=== PATIENT | male | born 1950 | race Caucasian/White ===

== ENCOUNTER → 2017-04-09 | Outpatient (CLI) | payer MEDICARE, OTHER ==
[2017-04-09 14:08] LABS: Blood Urea Nitrogen 13 mg/dL (9-20); Non-African American GFR(MDRD) >60 (>60 ml/min/1.73 sqM)
--- NOTE | 2017-04-09 16:35 | CT ---
EXAMINATION TYPE: CT angio thoracic/abd aorta DATE OF EXAM: 04/09/2017 3:10 PM COMPARISON: NONE HISTORY: thoracic and abdominal aneurysms CT DLP: 895 mGycm Automated exposure control for dose reduction was used. TECHNIQUE: Performed with IV Contrast, patient injected with 100 ml mL of Omnipaque 350. Three-D reconstructed images are reviewed on the computer. FINDINGS: The ascending thoracic aorta at the level the main pulmonary artery is 4.9 cm patent main pulmonary b ifurcation is 2.7 cm. Aortic arch has a normal appearance. The ascending thoracic aorta appears to ta per normally through its visualized course. The abdominal aorta tapers through its visualized course. Vascular calcifications within the aorta an d iliac vessels. The left iliac artery measures 1.2 cm. There is mild prominence proximal common righ t iliac artery 1.9 cm. Internal/external iliac vessels appear normal bilaterally. Emphysematous changes are present lung windows. There is a 4 mm nodule within the superior right uppe r lobe. Series 6 image 18. There is a faint density measuring 0.5 cm in the left upper lobe. Series 6 image 17. Punctate right middle lobe density 0.2 cm in the periphery. Series 6 image 34. These appea r to been present previously. Follow-up chest CT in 6 months is recommended to confirm stability. Diverticular changes are within the sigmoid colon. Lack oral contrast limits evaluation of bowel. Padilla creas is somewhat atrophic. There is a cyst in the superior medial left kidney measuring 3.1 cm. IMPRESSION: ASCENDING THORACIC AORTIC ANEURYSM CURRENTLY MEASURING 4.9 CM. THIS IS SLIGHTLY LARGER THAN THE 4.7 C M ON THE PRIOR EXAM.
== END | disposition home or self-care (01) ==
LOC: RADCTMAIN 13:19
PROVIDERS: ATTEND Family Medicine
DX: I71.2 Thoracic aortic aneurysm, without rupture (principal); I71.4 Abdominal aortic aneurysm, without rupture
CPT/HCPCS: 82565; 84520; 75635; 71275; 36415; Q9967

== ENCOUNTER → 2017-05-21 | Outpatient (CLI) | payer MEDICARE, OTHER ==
[2017-05-21 08:09] LABS: Blood Urea Nitrogen 14 mg/dL (9-20); Non-African American GFR(MDRD) >60 (>60 ml/min/1.73 sqM)
--- NOTE | 2017-05-21 10:29 | CT ---
EXAMINATION TYPE: CT soft tissue neck w con DATE OF EXAM: 05/21/2017 HISTORY: Left submandibular/occipital pain COMPARISON: NONE CT DLP: 1320 mGycm. Automated Exposure Control for Dose Reduction was Utilized. TECHNIQUE: CT scan of the neck is performed with IV Contrast, patient injected with 100 mL of Omnipa que 300, axial images are obtained, coronal and sagittal reformatted images are reviewed. FINDINGS: Airway: Fullness in the nasopharyngeal and oropharyngeal airway are felt to reflect retained secretio ns with some irregular filling of the piriform sinuses present. No obvious mass is identified. There is mild to moderate emphysematous change with moderate apical scarring and subpleural bleb formation most prominent in the visualized right upper lobe. Dependent atelectatic changes are seen in the bila teral upper lobes. Subcentimeter lymph nodes are seen in the anterior superior mediastinum, prevascul ar region, paratracheal region, and AP window. Ascending aortic aneurysm measures up to 4.8 cm in andressa meter stable from recent CT April 09. Parotid/submandibular glands: No gross abnormality seen. Carotid/Vascular Structures: There is fairly moderate mixed plaque at bilateral carotid bulbs slightl y more prominent on the left. No hemodynamically significant stenosis is felt present. Osseous Structures: Exaggerated cervical curvature is seen. There is mild to moderate spurring and di sc space narrowing at C5-C6 and C6-C7 levels. Posterior spur disc complexes effacing anterior thecal sac at these levels. Other: There is mild mucosal thickening involving the bilateral frontal sinuses. There are some scattered subcentimeter lymph nodes in the neck seen bilaterally. No greater than 1 cm neck lymph nodes are clearly identified. Visualized proximal esophagus shows mild wall thickening which is most prominent near origin at level of thyroid gland on axial image 70, but not significantly changed from 2014 CT suggesting benign christine ology. IMPRESSION: No significant abnormality is seen to account for patient's symptoms.
== END | disposition home or self-care (01) ==
LOC: RADCTMAIN 07:39
PROVIDERS: ATTEND Otolaryngology
DX: M54.81 Occipital neuralgia (principal); R59.9 Enlarged lymph nodes, unspecified
CPT/HCPCS: 82565; 84520; 70491; 36415; Q9967

== ENCOUNTER → 2017-06-29 | Outpatient (CLI) | payer MEDICARE, OTHER ==
--- NOTE | 2017-06-29 11:17 | MR ---
EXAMINATION TYPE: MR brain wo/w con DATE OF EXAM: 06/29/2017 COMPARISON: CT brain 03/13/2010 HISTORY: Headaches TECHNIQUE: Multiplanar, multisequence images of the brain and brainstem is performed without and with IV contras t, utilizing 11 mL intravenous Gadavist . FINDINGS: Diffusion weighted images demonstrate no evidence of a recent infarct or other diffusion ab normality. There is no extra-axial fluid collection or significant white matter signal abnormality. Craniocervical junction maintained. Sella turcica has normal appearance. No cerebellopontine angle mass. There are a few scattered areas of abnormal signal the white matter most of remote microvascular isch emia. Changes of chronic sinusitis noted. IMPRESSION: 1. Nonspecific white matter changes correlate for remote microvascular ischemia. Demyelinating proces s not entirely excluded. If symptoms persist consider MRA.
== END | disposition home or self-care (01) ==
LOC: RADMRIMAIN 08:57
PROVIDERS: ATTEND Psychiatry & Neurology Neurology
DX: R90.82 White matter disease, unspecified (principal); R51 Headache
CPT/HCPCS: 70553; A9581

== ENCOUNTER → 2017-07-19 | Outpatient (CLI) | payer MEDICARE, OTHER ==
--- NOTE | 2017-07-19 15:57 | MR ---
EXAMINATION TYPE: MR angio head wo con DATE OF EXAM: 07/19/2017 3:52 PM COMPARISON: NONE HISTORY: Headaches, unusual duration Three-dimensional [id number] intracranial MRA was performed with multiple intensity projection im ages submitted and source data reviewed at the workstation. The vertebrobasilar system as well as intracranial portions of the internal carotid arteries and thei r major tributaries are patent. I do not see evidence for sizable aneurysm or vascular malformation. IMPRESSION: Normal study.
== END | disposition home or self-care (01) ==
LOC: RADMRIMAIN 15:27
PROVIDERS: ATTEND Psychiatry & Neurology Neurology
DX: R51 Headache (principal)
CPT/HCPCS: 70544

== ENCOUNTER → 2018-04-22 | Outpatient (CLI) | payer MEDICARE, OTHER ==
[2018-04-22 10:44] LABS: Blood Urea Nitrogen 12 mg/dL (9-20)
--- NOTE | 2018-04-22 14:21 | CT ---
EXAMINATION TYPE: CT angio chest DATE OF EXAM: 04/22/2018 COMPARISON: 04/09/2017 HISTORY: 67-year-old male Follow up for known ascending aortic aneurysm. TECHNIQUE: Contiguous axial scanning of the chest performed without and with IV Contrast, patient inj ected with 100 mL of Isovue 370. Coronal/sagittal MIP reconstructions performed. 3-D reconstructions generated on a dedicated independent workstation. CT DLP: 1147.3 mGycm Automated exposure control for dose reduction was used. FINDINGS: Heart normal size without pericardial effusion. Coronary vessel calcifications are present and are a marker for coronary artery disease. Aortic root remains ectatic at 3.9 cm. Ascending aorta remains aneurysmal at 4.7 cm. Mild atherosclerotic calcifications with conventional arch vessel branching anatomy. Upper descending thoracic aorta remains mildly aneurysmal at 3.3 cm. Mid descending thoracic aorta borderline aneurysmal at 3.2 cm. Lower descending thoracic aorta is ectatic at 2.9 cm. No dissection or acute intramural hematoma. Mildly enlarged caliber to the main right and left pulmonary arteries at 2.6 and 2.8 cm, respectively , suggesting underlying pulmonary arterial hypertension. Mildly enlarged precarinal lymph node measures 1.1 cm, probably reactive/and postinflammatory and sli ghtly larger from prior. Additional scattered nonenlarged mediastinal lymph nodes are present. [id number] centrilobular and paraseptal emphysema. Strandy dependent atelectasis in the lungs. No consolidation or pleural effusion. Stable 2 mm lateral right midlung pulmonary nodule. Mild diffuse bronchial wall thickening. Stable 4 mm peripheral left midlung pulmonary nodule. Small hiatal hernia. Stable low density 2.5 cm right adrenal nodule compatible with a lipid rich adrenal adenoma. Stable 1 cm low density nodularity left adrenal gland also suggest an adrenal adenoma. 1.7 cm lesion lateral upper pole right kidney slightly larger from 1.3 cm on 04/09/2017 is not clearly seen on the 2014 exam. Complicated cyst or developing solid mass are in the differential. 3.5 cm cys t posterior upper pole left kidney. Bones: Moderate degenerative disc disease throughout the thoracic spine. Situated thoracic kyphosis. IMPRESSION: 1. STABLE ANEURYSMAL ASCENDING AORTA AT 4.7 CM AND UPPER DESCENDING THORACIC AORTA AT 3.3 CM. 2. COPD WITH MILD TO MODERATE EMPHYSEMA AND FINDINGS SUGGESTING UNDERLYING PULMONARY ARTERIAL HYPERTE NSION. 3. SMALL HIATAL HERNIA AND STABLE BILATERAL ADRENAL ADENOMAS MEASURING UP TO 2.5 CM. 4. A 1.7 CM INDETERMINATE LESION LATERAL RIGHT KIDNEY SLIGHTLY LARGER FROM 04/09/2017 WHERE IT MEASURE D 1.3 CM AND NOT WELL SEEN ON THE 2014 EXAM. AN ENLARGING COMPLICATED CYST OR AN INDOLENT SOLID MASS ARE IN THE DIFFERENTIAL. 6 MONTH FOLLOW-UP ABDOMINAL CT RECOMMENDED TO REASSESS.
== END | disposition home or self-care (01) ==
LOC: RADCTMAIN 10:06
PROVIDERS: ATTEND Thoracic Surgery (Cardiothoracic Vascular Surgery)
DX: I71.2 Thoracic aortic aneurysm, without rupture (principal); K44.9 Diaphragmatic hernia without obstruction or gangrene; J43.2 Centrilobular emphysema
CPT/HCPCS: 82565; 84520; 71275; 36415; Q9967

== ENCOUNTER → 2018-07-19 | Outpatient (CLI) | payer MEDICARE, OTHER ==
--- NOTE | 2018-07-19 16:12 | CT ---
EXAMINATION TYPE: CT abdomen wo con DATE OF EXAM: 07/19/2018 HISTORY: Right kidney mass. Abnormal CT. CT DLP: 737 mGycm. Automated Exposure Control for Dose Reduction was Utilized. TECHNIQUE: CT scan of the abdomen and pelvis is performed without oral or IV contrast. COMPARISON: CT aorta April 09, 2017 and older CTs. CTA chest April 22, 2018 FINDINGS: Within the limitations of a non-contrast study, the following observations are made. LUNG BASES: Coronary artery calcification is redemonstrated. LIVER/GB: Cholecystectomy clips are redemonstrated. PANCREAS: No significant abnormality is seen. SPLEEN: No significant abnormality is seen. ADRENALS: Stable 2.1 cm low dense right adrenal mass felt to reflect benign lipid rich adenoma as the Hounsfield units are less than 10. KIDNEYS: Stable 2.7 cm partially exophytic simple cyst posteriorly upper pole level left kidney axial image 12. There are 2 calculi measuring 1 to 2 mm in size centrally left kidney coronal image 83. Th ere is third 1 to 2 mm calculus lower pole level coronal image 74. There are 2-3 small calculi measur ing 1 to 2 mm in size scattered throughout the right kidney. There is 1.3 cm partially exophytic hype rdense lesion upper pole level right kidney axial image 18 favoring proteinaceous cyst not significan tly changed in size from most recent CT. I would advise CT or MRI renal protocol contrast-enhanced fo llow-up in 6-12 months time to reassess due to its increasing size, hyperdense appearance on noncontr ast CT would favor benign lesion. BOWEL: Debris filled stomach is present. No suspicious small or large bowel dilatation is seen LYMPH NODES: No greater than 1cm abdominal lymph nodes nodes are appreciated. OSSEOUS STRUCTURES: Moderate to advanced disc space narrowing with vacuum disc phenomenon at L5-S1 le ann is present. OTHER: There is mild to moderate calcified plaque of aorta extending into branch vessels. IMPRESSION: Stable size of upper pole right renal lesion from recent CTA chest study. Hyperdense appe arance on noncontrast CT favors proteinaceous cyst. Suboptimal evaluation without dedicated renal pro tocol study. Advise short-term renal protocol CT or MRI in 6-12 months time to reassess this lesion.
== END ==
LOC: RADCTMAIN 15:34
PROVIDERS: ATTEND Family Medicine
DX: N28.9 Disorder of kidney and ureter, unspecified (principal)
CPT/HCPCS: 74150

== ENCOUNTER → 2019-01-17 | Outpatient (CLI) | payer MEDICARE, OTHER ==
[2019-01-17 12:15] LABS: Blood Urea Nitrogen 13 mg/dL (9-20)
--- NOTE | 2019-01-17 13:28 | CT ---
EXAMINATION TYPE: CT abdomen wo/w con DATE OF EXAM: 01/17/2019 COMPARISON: 07/19/2015 HISTORY: Right kidney mass. CT DLP: 2109.5 mGycm CONTRAST: CT scan of the abdomen is performed with Oral Contrast and without and with IV Contrast, patient inj ected with 100 mL of Isovue M300. FINDINGS: LUNG BASES-: No visible nodule. No infiltrate. LIVER/GB: Cholecystectomy clips are noted to be placed. No space occupying hepatic lesion. Biliary tree is of normal caliber. PANCREAS: No inflammation. No distinct mass. SPLEEN: No splenic enlargement. No lesion seen. ADRENALS: No nodule. No thickening. KIDNEYS/BLADDER: 1.6 cm exophytic lesion upper pole right kidney at its lateral cortex with Hounsfiel d units following contrast and access of 70. Free contrast Hounsfield unit measurement of approximate ly 40. Small neoplasm is not excluded. Simple cyst upper pole left kidney is stable and measures 3 cm . Bilateral nephrolithiasis noted. There is mild fullness of the left renal collecting system of unce rtain etiology. BOWEL: Normal appendix. Normal bowel caliber. No inflammation. LYMPH NODES: No greater than 1cm abdominal or pelvic lymph nodes are appreciated. AORTA: Atheromatous and ectatic change of the abdominal aorta and iliac vessels. OSSEOUS STRUCTURES: No significant abnormality is seen. OTHER: No significant additional abnormality is seen. IMPRESSION: 1. Complex lesion upper pole right kidney. Small neoplasm is not excluded. Correlate clinically.
== END ==
LOC: RADCTMAIN 11:41
PROVIDERS: ATTEND Family Medicine
DX: N28.89 Other specified disorders of kidney and ureter (principal)
CPT/HCPCS: 82565; 84520; 74170; 36415; Q9967

== ENCOUNTER → 2019-02-19 | Outpatient (CLI) | payer MEDICARE, OTHER ==
[2019-02-19 14:13] LABS: Basophils # (A) 0.1 k/uL (0-0.2); Basophils % (A) 1 %; Eosinophils # (A) 0.3 k/uL (0-0.7); Eosinophils % (A) 3 %; HCT 46.3 % (39.0-53.0); HGB 15.1 gm/dL (13.0-17.5); Lymphocytes # (A) 1.7 k/uL (1.0-4.8); Lymphocytes % (A) 20 %; MCH 30.1 pg (25.0-35.0); MCHC 32.7 g/dL (31.0-37.0); MCV 92.1 fL (80.0-100.0); Mean Platelet Volume 7.6; Monocytes # (A) 0.5 k/uL (0-1.0); Monocytes % (A) 6 %; Neutrophils # (A) 5.6 k/uL (1.3-7.7); Neutrophils % (A) 68 %; Platelet Count 307 k/uL (150-450); RBC 5.03 m/uL (4.30-5.90); RDW 15.2 % (11.5-15.5); WBC 8.3 k/uL (3.8-10.6)
[2019-02-19 14:16] LABS: ALT 34 U/L (21-72); AST 25 U/L (17-59); Albumin 4.3 g/dL (3.5-5.0); Alkaline Phosphatase 94 U/L (38-126); Anion Gap 9 mmol/L; Blood Urea Nitrogen 17 mg/dL (9-20); Calcium 9.6 mg/dL (8.4-10.2); Carbon Dioxide 23 mmol/L (22-30); Chloride 108 mmol/L (98-107); Glucose 94 mg/dL (74-99); Potassium 4.5 mmol/L (3.5-5.1); Sodium 140 mmol/L (137-145); Total Bilirubin 0.6 mg/dL (0.2-1.3); Total Protein 7.3 g/dL (6.3-8.2)
== END | disposition home or self-care (01) ==
LOC: LABPAT 13:25
PROVIDERS: ATTEND Urology
DX: Z01.812 Encounter for preprocedural laboratory examination (principal); D41.01 Neoplasm of uncertain behavior of right kidney
CPT/HCPCS: 36415; 80053; 85025

== ENCOUNTER → 2019-02-20 | Outpatient (CLI) | payer MEDICARE, OTHER | END | disposition home or self-care (01) | LOC: LABWHC1 13:30 | PROVIDERS: ATTEND Urology | DX: Z01.812 Encounter for preprocedural laboratory examination (principal); D41.01 Neoplasm of uncertain behavior of right kidney | CPT/HCPCS: 86850; 86860; 86870; 86880; 86885; 86900; 86901; 86970; 86978 ==

== ENCOUNTER → 2019-02-24 | Outpatient (CLI) | payer MEDICARE, OTHER | END | disposition home or self-care (01) | LOC: LABPAT 09:46 | PROVIDERS: ATTEND Urology | DX: Z01.818 Encounter for other preprocedural examination (principal) | CPT/HCPCS: 93005 ==

== ENCOUNTER 2019-02-26 10:33 | Inpatient (IN) | payer MEDICARE, OTHER ==
--- NOTE | 2019-02-25 20:06 | P.GSHP ---
History of Present Illness H&P Date: 02/25/19 68 yo male with an ascending aortic aneurysm that is being observed that. During the observation a ct scan identified a 1.6cm upper right lateral mass of 30-40 hounsfield units in t he right kidney He was snet to Dr Lane Campbell for further evaluation and treatment He comes for a right robotic partial nephrectomy. the risks complications and alternatives have been discussed. - Constitutional Constitutional: Denies chills, Denies fever - EENT Eyes: denies blurred vision, denies pain Ears, nose, mouth and throat: Denies headache, Denies sore throat - Cardiovascular Cardiovascular: Denies chest pain, Denies shortness of breath - Respiratory Respiratory: Denies cough, Denies 7 - Gastrointestinal Gastrointestinal: Denies abdominal pain, Denies diarrhea, Denies nausea, Denies vomiting - Genitourinary (Female) Genitourinary: Denies dysuria, Denies hematuria - Genitourinary (Male) Genitourinary: Denies dysuria, Denies hematuria - Musculoskeletal Musculoskeletal: Denies myalgias - Integumentary Integumentary: Denies pruritus, Denies rash - Neurological Neurological: Denies numbness, Denies weakness - Psychiatric Psychiatric: Denies anxiety, Denies depression - Endocrine Endocrine: Denies fatigue, Denies weight change Past Medical History Past Medical History: No Reported History, Vascular Disorder Additional Past Medical History / Comment(s): MASS RIGHT KIDNEY. AORTIC ANEURYSM. History of Any Multi-Drug Resistant Organisms: None Reported Past Surgical History: Cholecystectomy, Hernia Repair Additional Past Surgical History / Comment(s): LEFT KIDNEY SURGERY A CHILD (PATIENT STATES HE HAD A TUMOR ON URETER). Past Anesthesia/Blood Transfusion Reactions: No Reported Reaction Past Psychological History: No Psychological Hx Reported Smoking Status: Current every day smoker Past Alcohol Use History: None Reported Additional Past Alcohol Use History / Comment(s): 1PDD FOR ABOUT 56 YR. Past Drug Use History: None Reported - Past Family History Mother Family Medical History: No Reported History Medications and Allergies Home Medications Medication Instructions Recorded Confirmed Type [id number] 1 tab PO Q6H PRN 02/21/19 02/21/19 History [Excedrin] Allergies Allergy/AdvReac Type Severity Reaction Status Date / Time No Known Allergies Allergy Verified 02/21/19 14:18 Surgical - Exam - General well developed, well nourished, no distress - Eyes PERRL - ENT no hearing loss - Neck no masses - Respiratory normal expansion, normal respiratory effort - Abdomen Abdomen: soft, non tender - Genitourinary normal penis with no external lesions, testicles present - Integumentary no rash, no growths - Neurologic normal coordination, normal sensation - Musculoskeletal normal gait, normal posture - Psychiatric oriented to time, oriented to person, oriented to place, speech is normal, memory intact Results - Imaging CT scan - abdomen: report reviewed, image reviewed CT scan - pelvis: report reviewed, image reviewed Assessment and Plan Assessment: Impression: Right renal mass , 1.6 cm upper lateral cortical kidney Plan: Robotic assisted laparoscopic partial nephrectomy by Dr Lane Campbell
[~2019-02-26 10:33] MED LIST: DEXAMETHASONE SOD PHOSPHATE 10 MG/ML 1 ML VIAL IV ONE; LIDOCAINE 1% 20 ML VIAL (10MG/ML) FOR IV START INTRADERMA PRN; MIDAZOLAM 2 MG/2 ML VIAL IV PRN; ONDANSETRON 4 MG/2 ML VIAL IVP ONE; Pre Op ABX Message 1 EACH MISC MISCELLANE ONE; SCOPOLAMINE 1.5MG/72HR PATCH TRANSDERM ONE
[2019-02-26] MEDS: LACTATED RINGERS 1,000 ML IV SCH (11:17)
[2019-02-26] MEDS ORDERED: HEPARIN SODIUM,PORCINE 5,000 UNIT/ML 1 ML VIAL SQ ONE (12:33)
[2019-02-26] MEDS ORDERED: hydrALAZINE HCL 20 MG/ML 1 ML VIAL ONE (13:00)
[2019-02-26] MEDS ORDERED: SUCCINYLCHOLINE CHLORIDE 100 MG/5 ML SYR IV ONE (13:00)
[2019-02-26] MEDS ORDERED: PROPOFOL 10 MG/ML 20 ML VIAL IV ONE (13:00)
[2019-02-26] MEDS ORDERED: fentaNYL (PF) 50 MCG/ML 2 ML AMP ONE (13:00)
[2019-02-26] MEDS ORDERED: LABETALOL 5 MG/ML VIAL MDV ONE (13:00)
[2019-02-26] MEDS ORDERED: ROCURONIUM BROMIDE 10 MG/ML 10 ML VIAL IV ONE (13:00)
[2019-02-26] MEDS ORDERED: HYDROmorphone (PF) 1 MG/ML ONE (13:00)
[2019-02-26] MEDS ORDERED: NEOSTIGMINE 1 MG/ML 10 ML VIAL ONE (13:00)
[2019-02-26] MEDS ORDERED: MIDAZOLAM 2 MG/2 ML VIAL ONE (13:00)
[2019-02-26] MEDS ORDERED: MANNITOL 25% 12.5 GM/50 ML VIAL ONE (13:00)
[2019-02-26] MEDS ORDERED: GLYCOPYRROLATE 0.2 MG/ML 2 ML VIAL ONE (13:00)
[2019-02-26] MEDS ORDERED: ONDANSETRON 4 MG/2 ML VIAL IVP PRN (13:02)
[2019-02-26] MEDS: ceFAZolin IN SWFI 2 GM/20 ML SYRINGE IVP STA ×3 (13:20→13:34)
[2019-02-26] MEDS ORDERED: BUPIVACAINE (PF) 0.5% 30 ML VIAL SQ ONE ×2 (13:42)
--- NOTE | 2019-02-26 14:33 | P.OP ---
Date of Procedure: 02/26/19 Preoperative Diagnosis: right renal mass Postoperative Diagnosis: right renal mass Procedure(s) Performed: robotic right partial nephrectomy Anesthesia: LETICIA Surgeon: Gonzalo Campbell Estimated Blood Loss (ml): 100 IV fluids (ml): 1,100 Urine output (ml): 200 Pathology: other (right renal mass) Condition: stable Disposition: PACU Indications for Procedure: right renal mass enhancing suspicious for malignancy Operative Findings: right enhancing renal mass. single artery and vein. Description of Procedure: the patient was taken to the OR, administered GA and placed in right lateral position. He was secured to the table with tape and all pressure points were padded.The parts were prepared and draped. A verress needle was used to access the peritoneum and pneumoperitoneum was achieved to 20 mm hg. A 8 mm robotic port was placed and the 0 degree camera was used to vislualize the peritoneum. three additional 8 mm ports were placed for the robotic arms and a 12 mm assi stant and 5 mm liver retractor port was also placed. The robotic was docked. Using the monopolar scissors and fenestrated bipolar, the colon was mobilized and reflected off the gerotas and the duodenum was also reflected off the gerota and IVC. The liver was retracted superiorly with a 5 mm grasper. The ureter was identified and retracted superiorly with the prograsp. The gonadal vein was left medially. The psoas muscle was identified and the kideny was reflectd off the Gerotas fascia till the hium was identified. The hilum was then dissected taking care to isolate the single renal artery and renal vein. At this point, the Gerotas was reflected off the anterior wall of the kidney and the renal mass was identified at the superior pole of right kidney. Ultrasound was used to judith the margins of the tumor on the surface of the kidney. 12.5 gm of mannitol were given iv and Bulldog clamps were used to occlude the renal artery and vein. using scissors and bipolar, the renal mass was excised using cold cutting. Care was taken to ensure margins were negative and any bleeding points were coagulated with bipolar forceps. Once the tumor was completely excised, it was placed in a 10 mm endocatch bag. Using a large needle transit mixer driver and bipolar, the renorrhaphy was commenced by starting the the deep layer using a 3-0 V loc on SH-1 needle. The deep layer was closed and needle brought out through the renal capsule and held in place with a weck clip. The outer renorrhaphy was then completed using four 2-0v loc sutures on a CT-1 needle. Individual sutures were placed through the capsule on both sides of the defect and held in place with a weck clip (sliding renorrhaphy technique) The bull dog clamps were then removed off the artery and vein and the defect was observed for bleeding for 10 minutes with pneumo at 10mm hg. After confirming that there was no bleeding, the defect was covered with evicel and surgicel and a drain was placed through the right lower 8 mm port. The endocatch bag was removed and renal mass sent for pathology. The fascia was closed with 0 vicryl figure of 8 suture and skin was closed with 3-0 monocryl. The drain was secured with 3-0 ethilon patient was reversed and taken to PACU in stable condition
[2019-02-26] MEDS: HYDROmorphone 0.5 MG/0.5 ML SYRINGE IVP PRN ×2 (16:43→16:49)
[2019-02-26] MEDS: DEXTROSE 5%-0.45% NACL 1,000 ML IV SCH ×2 (17:37→23:49)
[2019-02-26] MEDS: HEPARIN SODIUM,PORCINE 5,000 UNIT/ML 1 ML VIAL SQ SCH ×2 (17:41→23:49)
[2019-02-26 17:55] VITALS: BMI 34.7
[2019-02-26] MEDS: ceFAZolin IN SWFI 2 GM/20 ML SYRINGE IVP SCH (21:26)
[2019-02-26] MEDS: KETOROLAC 30 MG/ML 1 ML VIAL IVP PRN (21:26)
[2019-02-26] MEDS: HYDROmorphone 1 MG/ML 1 ML SYRINGE IVP PRN (23:48)
[2019-02-27] MEDS: HYDROmorphone 1 MG/ML 1 ML SYRINGE IVP PRN ×3 (03:55→20:10)
[2019-02-27] MEDS: ceFAZolin IN SWFI 2 GM/20 ML SYRINGE IVP SCH ×2 (06:07→12:33)
[2019-02-27] MEDS ORDERED: ASPIRIN-ACET-CAFF 250-250-65MG 1 EACH TAB PO PRN (06:36)
--- NOTE | 2019-02-27 06:36 | P.PN ---
Subjective Progress Note Date: 02/27/19 The patient underwent a robotic-assisted laparoscopic partial nephrectomy yesterday by he did well overnight. His only problem is that of a migraine. His abdomen is soft. The voided urine is clear. His drain has some pinkish urine. I will discontinue his Scott. Given medicine for his migraine ambulate and give him a regular diet. We will observe him another 24 hours to make sure there is no bleeding from the partial nephrectomy. Anticipate discharge home tomorrow. Objective - Vital Signs Vital signs: Vital Signs Temp 97.8 F 02/27/19 01:11 Pulse 75 02/27/19 01:11 Resp 16 02/27/19 01:11 BP 110/66 02/27/19 01:11 Pulse Ox 92 L 02/27/19 01:11 Intake & Output 02/26/19 02/26/19 02/27/19 06:59 18:59 06:59 Intake Total 1675 Output Total 720 1350 Balance 955 -1350 Intake: IV 1675 Output: Drainage 200 Right Lower Abdomen 200 Urine 700 1150 Estimated Blood Loss 20 Other: Voiding Method Indwelling Catheter Indwelling Catheter
[2019-02-27] MEDS: HEPARIN SODIUM,PORCINE 5,000 UNIT/ML 1 ML VIAL SQ SCH ×3 (07:47→23:46)
[2019-02-27] MEDS: DEXTROSE 5%-0.45% NACL 1,000 ML IV SCH ×3 (07:50→22:23)
--- NOTE | 2019-02-27 09:10 | XR ---
EXAMINATION TYPE: XR chest 2V DATE OF EXAM: 02/27/2019 COMPARISON: 03/13/2010 INDICATION: Hypoxia TECHNIQUE: Frontal and lateral views of the chest are obtained. FINDINGS: The heart size is normal. The pulmonary vasculature is somewhat prominent. There is some nonspecific linear opacity within the left mid and upper lung field. Scarring should be considered.. There may be some mild infiltrate in the left lower lobe. There is blunting of the cos tophrenic angle. Correlate for atelectasis or infiltrate. IMPRESSION: 1. Nonspecific lung markings greater at the left lung base and costophrenic angle. Correlate for atel ectasis. Consider pneumonia and scarring.
[2019-02-27 10:02] LABS: ALT 40 U/L (21-72); AST 33 U/L (17-59); Albumin 4.1 g/dL (3.5-5.0); Alkaline Phosphatase 90 U/L (38-126); Anion Gap 10 mmol/L; Blood Urea Nitrogen 18 mg/dL (9-20); Calcium 9.3 mg/dL (8.4-10.2); Carbon Dioxide 26 mmol/L (22-30); Chloride 103 mmol/L (98-107); Glucose 109 mg/dL (74-99); Potassium 4.4 mmol/L (3.5-5.1); Sodium 139 mmol/L (137-145); Total Bilirubin 0.7 mg/dL (0.2-1.3)
[2019-02-27 10:03] LABS: Basophils % (A) 0 %; Eosinophils % (A) 0 %; HCT 46.1 % (39.0-53.0); HGB 14.6 gm/dL (13.0-17.5); Lymphocytes # (A) 1.1 k/uL (1.0-4.8); Lymphocytes % (A) 5 %; MCH 29.1 pg (25.0-35.0); MCHC 31.7 g/dL (31.0-37.0); MCV 91.9 fL (80.0-100.0); Mean Platelet Volume 8.1; Monocytes # (A) 0.8 k/uL (0-1.0); Monocytes % (A) 4 %; Neutrophils % (A) 90 %; Platelet Count 325 k/uL (150-450); RBC 5.02 m/uL (4.30-5.90); RDW 14.7 % (11.5-15.5)
[2019-02-27] MEDS: KETOROLAC 30 MG/ML 1 ML VIAL IVP PRN ×2 (12:32→21:37)
[2019-02-27] MEDS ORDERED: SODIUM CHLORIDE 0.65% NASAL SPRAY 44 ML BTL NASAL PRN (20:35)
[2019-02-27] MEDS: MONTELUKAST 10 MG TAB PO SCH (21:34)
[2019-02-28] MEDS: LACTATED RINGERS 1,000 ML IV SCH (04:59)
[2019-02-28] MEDS: HYDROmorphone 1 MG/ML 1 ML SYRINGE IVP PRN ×2 (06:13→12:11)
[2019-02-28] MEDS: DEXTROSE 5%-0.45% NACL 1,000 ML IV SCH ×3 (06:16→21:30)
[2019-02-28] MEDS: HEPARIN SODIUM,PORCINE 5,000 UNIT/ML 1 ML VIAL SQ SCH ×3 (07:47→23:54)
--- NOTE | 2019-02-28 08:29 | P.CONS ---
History of Present Illness - Reason for Consult Consult date: 02/27/19 Medical management - History of Present Illness This is 68-year-old gentleman admitted with upper right lateral renal mass, history of ascending aortic aneurysm, ongoing nicotine abuse and multiple other medical issues. Patient is postop day #1 for right robotic partial nephrectomy. Tolerated procedure well. Complains of discomfort at surgical sites. Ambulating in room. Nauseated this morning, minimal diet intake. Complains of headache.Requiring 4 L nasal cannula O2 to maintain O2 sats of 92-94% and a patient who does not wear oxygen at home. Incentive spirometer up to 1000. Labs and chest x-ray ordered and pending. Denies chest pain, palpitations. Denies cough. Denies lightheadedness dizziness or focal deficits. Afebrile. Review of Systems Review of systems: CONSTITUTIONAL: No fever, no malaise, no fatigue. HEENT: No recent visual problems or hearing problems. Denied any sore throat. CARDIOVASCULAR: No chest pain, orthopnea, PND, no palpitations, no syncope. PULMONARY: Denies shortness of breath, no cough, no hemoptysis. GASTROINTESTINAL: No diarrhea, positive nausea, no vomiting, status post surgery -abdominal /right flank pain. Normoactive bowel sounds. NEUROLOGICAL: Mild posterior headache, no weakness, no numbness. HEMATOLOGICAL: Denies any bleeding or petechiae. GENITOURINARY: Denies any burning micturition, frequency, or urgency. MUSCULOSKELETAL/RHEUMATOLOGICAL: Denies any joint pain, swelling, or any muscle pain. ENDOCRINE: Denies any polyuria or polydipsia. PSYCHIATRIC: No anxiety, no depression The rest of the 14 point review of systems is negative Past Medical History Past Medical History: No Reported History, Vascular Disorder Additional Past Medical History / Comment(s): MASS RIGHT KIDNEY. AORTIC ANEURYSM. History of Any Multi-Drug Resistant Organisms: None Reported Past Surgical History: Cholecystectomy, Hernia Repair Additional Past Surgical History / Comment(s): LEFT KIDNEY SURGERY A CHILD (PATIENT STATES HE HAD A TUMOR ON URETER). Right partial nephrectomy. Past Anesthesia/Blood Transfusion Reactions: No Reported Reaction Past Psychological History: No Psychological Hx Reported Smoking Status: Current every day smoker Past Alcohol Use History: None Reported Additional Past Alcohol Use History / Comment(s): 1 1/2 PPD FOR ABOUT 56 YR. Past Drug Use History: None Reported - Past Family History Mother Family Medical History: No Reported History Medications and Allergies Home Medications Medication Instructions Recorded Confirmed Type [id number]-[id number] 1 tab PO Q6H PRN 02/21/19 02/27/19 History [Excedrin] Allergies Allergy/AdvReac Type Severity Reaction Status Date / Time No Known Allergies Allergy Verified 02/27/19 18:59 Physical Exam Vitals: Vital Signs Temp Pulse Resp BP Pulse Ox 02/27/19 01:11 97.8 F 75 16 110/66 92 L 02/26/19 20:09 98.8 F 57 L 18 114/72 94 L 02/26/19 19:30 52 L 122/75 94 L 02/26/19 19:15 63 114/72 94 L 02/26/19 19:00 61 110/72 94 L 02/26/19 18:45 65 111/69 94 L 02/26/19 18:38 72 114/72 02/26/19 18:15 69 114/72 02/26/19 18:00 67 117/71 92 L 02/26/19 17:45 68 111/72 92 L 02/26/19 17:30 98 F 83 14 138/80 91 L 02/26/19 16:45 73 16 127/67 99 02/26/19 16:15 65 16 128/63 97 02/26/19 16:00 68 16 124/77 96 02/26/19 15:45 69 16 122/70 95 02/26/19 15:30 68 16 127/60 94 L 02/26/19 15:15 78 16 132/60 92 L 02/26/19 15:00 97.5 F L 74 18 132/62 92 L 02/26/19 11:09 97.9 F 69 16 123/81 94 L Intake and Output 02/26/19 02/27/19 02/27/19 22:59 06:59 14:59 Intake Total 375 Output Total 1085 615 Balance -710 615 Intake: IV 375 Output: Drainage 60 140 Right Lower Abdomen 60 140 Urine 1025 475 Other: Voiding Method Indwelling Catheter PHYSICAL EXAM: VITAL SIGNS: As above GENERAL: Sitting up in bed, no acute distress HEENT: Conjunctivae normal. eyes normal. NECK: No JVD. No thyroid enlargement. No LNs CARDIOVASCULAR: S1, S2 regular. No murmur RESPIRATION: Breath sounds diminished in the bases. No rhonchi or crackles. No bronchial breathing. ABDOMEN: Soft, status post surgery. Surgical sites clean dry and intact, ROXANA present with sanguinous drainage. No guarding. Bowel sounds heard. LEGS: No edema. no swelling PSYCHIATRY: Alert and oriented -3, mood and affect normal. NERVOUS SYSTEM: Cranial N 2-12 grossly normal. Moves all 4 limbs. Diffuse weakness No focal deficits. Strength and sensation grossly intact. Skin: no ulcer ,no rashes Joints: No active swelling. No inflammation. Lymphatic system. No LN neck axilla or groin. Results CBC & Chem 7: 02/27/19 08:54 02/27/19 08:54 Assessment and Plan Assessment: -Right Renal mass, status post right partial nephrectomy -Acute hypoxic respiratory failure, possibly atelectasis, rule out infiltrate -Ongoing nicotine abuse Plan: Continue on current medication regime ,monitoring and symptomatic treatment. Aggressive pulmonary toileting with incentive spirometer reinforced. Smoking cessation readdressed. zofran for nausea. Scott to be discontinued as per urology. Increase ambulation as tolerated . Excedrin Migraine ordered for headache .Chest x-ray pending. Thank you Dr. Campbell for allowing us to participate in the care at this [facility]. The impression and plan of care has been dictated as directed. : I performed a history and examination of this patient, discussed the same with the dictator. I agree with the dictator's note ,documented as a scribe. Any additional findings or plans will be noted. Time taken: 35 minutes
--- NOTE | 2019-02-28 09:00 | P.PN ---
Subjective Progress Note Date: 02/28/19 This is 68-year-old gentleman admitted with upper right lateral renal mass, history of ascending aortic aneurysm, ongoing nicotine abuse and multiple other medical issues. Patient is postop day #1 for right robotic partial nephrectomy. Tolerated procedure well. Complains of discomfort at surgical sites. Ambulating in room. Nauseated this morning, minimal diet intake. Complains of headache.Requiring 4 L nasal cannula O2 to maintain O2 sats of 92-94% and a patient who does not wear oxygen at home. Incentive spirometer up to 1000. Labs and chest x-ray ordered and pending. Denies chest pain, palpitations. Denies cough. Denies lightheadedness dizziness or focal deficits. Afebrile. 02/28/2019 Developed fever during the night, T-max 100.3. Nonproductive cough. Incentive spirometer up to 2500. Oxygen requirements has decreased, down to 3 L, maintaining O2 sats of 93%. Chest x-ray reported nonspecific lung markings, atelectasis persists infiltrate greater in the left lower lobe and co stophrenic angle. Patient received a total of 1100 mL fluid during the procedure. Complains of pain at surgical sites this morning. Leaking serosanguineous drainage around ROXANA. Received Excedrin Migraine yesterday, headache subsided. Objective - Vital Signs Vital signs: Vital Signs Temp 98.1 F 02/27/19 23:47 Pulse 75 02/27/19 23:47 Resp 20 02/28/19 03:10 BP 145/67 02/27/19 23:47 Pulse Ox 93 L 02/27/19 23:47 Intake & Output 02/27/19 02/28/19 02/28/19 18:59 06:59 18:59 Intake Total 1180 1000 Output Total 1345 280 Balance -165 720 Intake: Intake, IV Titration 1000 Amount Dextrose 5%-0.45% NaCl 1, 1000 000 ml @ 125 mls/hr IV . Q8H [facility] Rx#:[id number] Oral 180 Other 1000 Output: Drainage 35 70 Right Lower Abdomen 35 70 Urine 1310 210 Uretheral (Scott) 60 Other: Voiding Method Toilet Urinal Urinal # Voids 1 - Exam VITAL SIGNS: As above GENERAL: Sitting up in bed, no acute distress HEENT: Conjunctivae normal. eyes normal. Oral mucosa moist NECK: No JVD. No thyroid enlargement. No LNs CARDIOVASCULAR: S1, S2 regular. No murmur RESPIRATION: Breath sounds coarse, diminished in the bases. No rhonchi or crackles. ABDOMEN: Soft, status post surgery. Surgical sites clean dry and intact, leaking serosanguineous drainage around ROXANA, No guarding. Bowel sounds heard. LEGS: No edema. no swelling PSYCHIATRY: Alert and oriented -3, mood and affect normal. NERVOUS SYSTEM: Cranial N 2-12 grossly normal. Moves all 4 limbs. Diffuse weakness No focal deficits. Strength and sensation grossly intact. Skin: no ulcer ,no rashes - Labs CBC & Chem 7: 02/27/19 08:54 02/27/19 08:54 Labs: Abnormal Lab Results - Last 24 Hours (Table) 02/27/19 02/27/19 Range/Units 08:54 08:54 WBC 20.0 H (3.8-10.6) k/uL Neutrophils # 18.0 H (1.3-7.7) k/uL Glucose 109 H (74-99) mg/dL Assessment and Plan Assessment: -Right Renal mass, status post right partial nephrectomy, pathology pending -Acute hypoxic respiratory failure, suspect atelectasis, possible infiltrate -Isolated fever, most likely related to atelectasis, urine culture ordered -Ongoing nicotine abuse Plan: Continue on current medication regime ,monitoring and symptomatic treatment. Increase ambulation as tolerated, continue with aggressive pulmonary toileting - incentive spirometer reinforced. Urine culture ordered. Empiric antibiotics of Rocephin added to med regime .Pain management as per surgery. Smoking cessation readdressed. Further recommendations to follow. Thank you Dr. Soto for allowing us to participate in the care at this [facility]. The impression and plan of care has been dictated as directed. Dr.: I performed a history and examination of this patient, discussed the same with the dictator. I agree with the dictator's note ,documented as a scribe. Any additional findings or plans will be noted. Time taken: 35 minutes
[2019-02-28 10:49] LABS: Appearance,Urine Clear (Clear); Bacteria,Urine Rare /hpf; Bilirubin,Urine Negative (Negative); Blood,Urine Small (Negative); Color,Urine Light Yellow; Glucose,Urine (UA) Negative (Negative); Ketones,Urine Negative (Negative); Leukocyte Esterase,Urine Negative (Negative); Mucus,Urine Rare /hpf; Nitrite,Urine Negative (Negative); Protein,Urine Trace (Negative); RBC,Urine 15 /hpf (0-5); Specific Gravity,Urine 1.011 (1.001-1.035); Urobilinogen,Urine <2.0 mg/dL (<2.0)
[2019-02-28 12:19] LABS: Basophils % (A) 0 %; Eosinophils # (A) 0.1 k/uL (0-0.7); Eosinophils % (A) 1 %; HCT 41.6 % (39.0-53.0); HGB 13.6 gm/dL (13.0-17.5); Lymphocytes % (A) 9 %; MCH 30.6 pg (25.0-35.0); MCHC 32.5 g/dL (31.0-37.0); MCV 94.1 fL (80.0-100.0); Mean Platelet Volume 7.5; Monocytes # (A) 0.8 k/uL (0-1.0); Monocytes % (A) 7 %; Neutrophils # (A) 9.7 k/uL (1.3-7.7); Neutrophils % (A) 83 %; Platelet Count 210 k/uL (150-450); RBC 4.43 m/uL (4.30-5.90); RDW 14.1 % (11.5-15.5); WBC 11.7 k/uL (3.8-10.6)
--- NOTE | 2019-02-28 15:10 | P.PN ---
Subjective Progress Note Date: 02/28/19 The patient is in his second postoperative day from a right partial nephrectomy done robotically by . He had a low-grade temperature last night consistent with atelectasis. A chest x-ray ordered by medicine showed atelectasis. He is using his incentive spirometry today with a much better volumes. He feels good. His drain is been removed. He is voiding without his catheter. We'll make sure he does well overnight and if so he can be discharged home in the morning. He'll follow-up in our office next week. Postoperative instructions been given. Objective - Vital Signs Vital signs: Vital Signs Temp 98.1 F 02/28/19 07:00 Pulse 93 02/28/19 07:00 Resp 12 02/28/19 07:00 BP 141/83 02/28/19 07:00 Pulse Ox 95 02/28/19 07:00 Intake & Output 02/27/19 02/28/19 02/28/19 18:59 06:59 18:59 Intake Total 1180 1000 180 Output Total 1345 280 Balance -165 720 180 Intake: Intake, IV Titration 1000 Amount Dextrose 5%-0.45% NaCl 1, 1000 000 ml @ 125 mls/hr IV . Q8H [facility] Rx#:[id number] Oral 180 180 Other 1000 Output: Drainage 35 70 Right Lower Abdomen 35 70 Urine 1310 210 Uretheral (Scott) 60 Other: Voiding Method Toilet Urinal Urinal # Voids 1 3 - Labs CBC & Chem 7: 02/28/19 11:42 02/27/19 08:54 Labs: Abnormal Lab Results - Last 24 Hours (Table) 02/28/19 02/28/19 Range/Units 10:15 11:42 WBC 11.7 H (3.8-10.6) k/uL Neutrophils # 9.7 H (1.3-7.7) k/uL Urine Protein Trace H (Negative) Urine Blood Small H (Negative) Urine RBC 15 H (0-5) /hpf Urine Bacteria Rare H (None) /hpf Urine Mucus Rare H (None) /hpf
[2019-02-28] MEDS: MONTELUKAST 10 MG TAB PO SCH (21:29)
--- NOTE | 2019-03-01 01:40 | CT ---
EXAM: CT Neck With Intravenous Contrast CLINICAL HISTORY: ITS.REASON CT Reason: Right Neck/Clavicle region swelling, pulsation, TECHNIQUE: Axial computed tomography images of the neck with intravenous contrast. CTDI is 10.4 mGy and DLP is 331.2 mGy-cm. This CT exam was performed using one or more of the following dose reduction techniques: automated exposure control, adjustment of the mA and/or kV according to patient size, and/or use of iterative reconstruction technique. Coronal and sagittal reformatted images were created and reviewed. COMPARISON: CT Neck dated 05/22/17 FINDINGS: Oropharynx: Unremarkable. No significant tonsillar enlargement. No peritonsillar abscess. Hypopharynx: Unremarkable. Larynx: Unremarkable. Normal epiglottis. Trachea: Unremarkable. Retropharyngeal space: Unremarkable. Submandibular/parotid glands: Unremarkable. Glands are normal in size. Thyroid: Unremarkable. No enlarged or calcified nodules. Bones/joints: Cervical spondylosis. No acute fracture. Soft tissues: Unremarkable. Vasculature: The proximal right subclavian artery is tortuous with atherosclerosis seen in the segment proximal to the takeoff of the vertebral artery. The degree of stenosis is not well appreciated but is possibly mild. Atherosclerosis. Approximately 15% stenosis of the left ICA. Lymph nodes: Unremarkable. No lymphadenopathy. Lung apices: Visualized lung apices demonstrate paraseptal emphysematous changes and platelike atelectasis. Please refer to chest CT report. IMPRESSION: The proximal right subclavian artery is tortuous with atherosclerosis seen in the segment proximal to the takeoff of the vertebral artery. The degree of stenosis is not well appreciated but is possibly mild. Please see Chest CT. This may be the palpated findings. EXAM: CT Chest With Intravenous Contrast CLINICAL HISTORY: ITS.REASON CT Reason: Right Neck/Clavicle region swelling, pulsation, TECHNIQUE: Axial computed tomography images of the chest with intravenous contrast. CTDI is 14.9 mGy and DLP is 589 mGy-cm. This CT exam was performed using one or more of the following dose reduction techniques: automated exposure control, adjustment of the mA and/or kV according to patient size, and/or use of iterative reconstruction technique. Coronal and sagittal reformatted images were created and reviewed. COMPARISON: CT Chest dated 04/22/18. CT Abdomen and Pelvis dated 01/17/19 FINDINGS: Lungs: Paraseptal emphysematous changes. Bibasilar atelectasis including platelike atelectasis right upper lobe platelike atelectasis also seen. Left upper lobe 4.4 and 3.3-mm nodules which are stable from 04/22/18. Right lower lobe 4 mm subpleural nodule, not previously seen. Pleural space: Small right pleural effusion. No pneumothorax. Heart: Coronary vessel calcifications. No significant pericardial effusion. Cardiomegaly. Bones/joints: Multilevel degenerative changes of the spine. No acute fracture. No dislocation. Soft tissues: Some soft tissue gas is seen within the right lower anterior chest presumed to be from recent surgery. Vasculature: Tortuous right subclavian artery with mild to moderate focal stenosis. The ascending aorta measures up to 4.7-cm in diameter. Lymph nodes: Multiple nonspecific mediastinal lymph nodes are seen including right lower paratracheal lymph nodes measuring up to 11 mm periaortic lymph nodes measuring up to 15 mm and upper paratracheal lymph nodes measuring up to 12 mm. Kidneys and ureters: Right intrarenal 4.5 mm calculus. Punctate left intrarenal calculus. Left renal 3.6 cm cyst. Heterogeneity of the right upper pole of the kidney with adjacent air. This is in the region of a previously seen lesion, correlate for recent surgery. Adrenals: Right adrenal 2.5-cm nodule. Left adrenal 1-cm nodule. Stable. IMPRESSION: 1. Tortuous right subclavian artery with mild to moderate focal stenosis. This may be the palpated findings. 2. Paraseptal emphysematous changes. Bibasilar atelectasis including platelike atelectasis right upper lobe platelike atelectasis also seen. 3. Left upper lobe 4.4 and 3.3-mm nodules which are stable from 04/22/18. Right lower lobe 4 mm subpleural nodule, not previously seen. An optional follow-up chest CT at 12 months could be performed due to the high risk of malignancy. If unchanged, no further follow-up is necessary. 4. Small right pleural effusion. 5. Right intrarenal 4.5 mm calculus. Punctate left intrarenal calculus. Left renal 3.6 cm cyst. 6. Heterogeneity of the right upper pole of the kidney with adjacent air. This is in the region of a previously seen lesion, correlate for recent surgery. If no recent intervention, gas forming organism/infection may be considered. 7. Stable bilateral adrenal nodules. 8. Stable aneurysmal ascending aorta measuring up to 4.7-cm. <MYCVCSECTION> [employer] 03/01/19 02:01 Verify Receipt Verified receipt with SCOTT Rodriguez in [address] [place] [address] on 03/01 02:01 (-04:00)
[2019-03-01] MEDS: KETOROLAC 30 MG/ML 1 ML VIAL IVP PRN (01:49)
[2019-03-01] MEDS ORDERED: hydrALAZINE HCL 20 MG/ML 1 ML VIAL IVP STA (02:12)
[2019-03-01] MEDS: LACTATED RINGERS 1,000 ML IV SCH (03:03)
[2019-03-01] MEDS: DEXTROSE 5%-0.45% NACL 1,000 ML IV SCH (05:54)
[2019-03-01 08:01] LABS: Basophils % (A) 0 %; Eosinophils # (A) 0.1 k/uL (0-0.7); Eosinophils % (A) 1 %; HGB 13.3 gm/dL (13.0-17.5); Lymphocytes # (A) 0.9 k/uL (1.0-4.8); Lymphocytes % (A) 9 %; MCH 29.7 pg (25.0-35.0); MCHC 32.4 g/dL (31.0-37.0); MCV 91.7 fL (80.0-100.0); Mean Platelet Volume 7.7; Monocytes # (A) 0.9 k/uL (0-1.0); Monocytes % (A) 8 %; Neutrophils % (A) 82 %; Platelet Count 204 k/uL (150-450); RBC 4.47 m/uL (4.30-5.90); RDW 14.1 % (11.5-15.5)
[2019-03-01 08:02] VITALS: BP 122/71; PULSE 80; RESP 15; TEMP 98.4
[2019-03-01 08:19] LABS: Anion Gap 6 mmol/L; Blood Urea Nitrogen 12 mg/dL (9-20); Calcium 8.9 mg/dL (8.4-10.2); Carbon Dioxide 27 mmol/L (22-30); Chloride 105 mmol/L (98-107); Glucose 118 mg/dL (74-99); Potassium 3.9 mmol/L (3.5-5.1); Sodium 138 mmol/L (137-145)
[2019-03-01] MEDS: HEPARIN SODIUM,PORCINE 5,000 UNIT/ML 1 ML VIAL SQ SCH (08:30)
--- NOTE | 2019-03-01 09:11 | P.PN ---
Progress Note - Text Progress Note Date: 03/01/19 The patient is afebrile and normotensive. He denies any shortness of breath. He is tolerating a regular diet and is fully ambulatory. He says his abdominal pain is minimal. The patient had the sensation of a pulsing mass at the base of his anterior right neck that lasted for approximately 10 minutes around midnight last night. At that time his blood pressure was somewhat elevated. He said that he had a similar episode sometime over the last month that resolved within a few minutes also. The medical staff manager ordered a computed tomography scan of the head and neck and thorax and this showed a somewhat torturous right subclavian artery but no other abnormality. Vascular surgery consultation was also ordered. On examination there is no tenderness or erythema in the right anterior cervical region. There is a prominent arterial pulse which may have been noticeable to the patient, especially if his pulse pressure was elevated. His abdominal incisions appear to be healing well. Overall the patient appears to be doing well following his partial right nephrectomy. He will be discharged later today provided the vascular surgeon feels that there is no other issue that should be addressed.
--- NOTE | 2019-03-01 13:24 | US ---
EXAMINATION TYPE: US carotid duplex BILAT DATE OF EXAM: 03/01/2019 COMPARISON: NONE CLINICAL HISTORY: enlarged right sided carotid. Dr Martinez present for part of scan. EXAM MEASUREMENTS: RIGHT: Peak Systolic Velocity (PSV) cm/sec ----- Right CCA: 55.7 ----- Right ICA: 72.4 ----- Right ECA: 59.2 ICA/CCA ratio: 1.3 RIGHT: End Diastole cm/sec ----- Right CCA: 13.9 ----- Right ICA: 26.3 ----- Right ECA: 12.0 LEFT: Peak Systolic Velocity (PSV) cm/sec ----- Left CCA: 63.6 ----- Left ICA: 69.1 ----- Left ECA: 82.3 ICA/CCA ratio: 1.1 LEFT: End Diastole cm/sec ----- Left CCA: 16.4 ----- Left ICA: 26.3 ----- Left ECA: 16.4 VERTEBRALS (direction of flow): Right Vertebral: Antegrade Left Vertebral: Antegrade Rhythm: Normal No significant stenosis seen. Mild to moderate bilateral plaque noted. IMPRESSION: I DO NOT SEE EVIDENCE OF A HEMODYNAMICALLY SIGNIFICANT STENOSIS IN EITHER CAROTID SYSTEM. Criteria for Assigning % of Stenosis / Diameter reduction (Estimation based on the indirect measurements of the internal carotid artery velocities (ICA PSV). 1. Normal (no stenosis)=ICA PSV < 125 cm/s: ratio < 2.0: ICA EDV<40 cm/s. 2. Less than 50% stenosis=ICA PSV < 125 cm/s: ratio < 2.0: ICA EDV<40 cm/s. 3. 50 to 69% stenosis=ICA PSV of 125 to 230 cm/s: ration 2.0 ? 4.0: ICA EDV 40-100 cm/s. 4. Greater than 70% stenosis to near occlusion= ICA PSV > 230 cm/s: ratio > 4.0: ICA EDV > 100 cm/s. 5. Near occlusion= ICA PSV velocities may be low or undetectable: variable ratio and ICA EDV. 6. Total occlusion=unable to detect flow.
--- NOTE | 2019-03-02 00:06 | PN ---
PROGRESS NOTE HISTORY: This gentleman has been admitted with history of renal mass. Patient went for a nephrostomy tube. The patient tolerated the procedure well. He felt some pulsatile mass on the supraclavicular on the right side which he had in the past. At that time, his blood pressure was high. Patient had a CT scan of the head and neck and chest and showed the subclavian artery is tortuous, mild plaque noted. No evidence of occlusive disease. Ultrasound of the neck showed the carotid artery is normal. The jugular vein is found to be normal. No evidence for deep vein thrombosis. PHYSICAL EXAMINATION: Patient was seen in his room, lying comfortably in bed. The patient has some pulsatile flow noted in the right carotid artery. Left carotid was found to be normal. Brachial, radial, and femoral pulses are present. Central nervous system, the patient has no history of dizziness. No evidence of swelling on the facial area. Chest is clear to auscultation. Abdomen is soft. The patient has a nephrostomy tube. Ultrasound showed no evidence of DVT of the jugular vein. Carotid artery was found to be patent. The CT showed mild atherosclerosis disease of the subclavian artery which is torturous. At this point, patient is stable from a vascular point of view. The patient can be discharged. Discussed with the family. MMODL / IJN: [id number] /
--- NOTE | 2019-03-02 10:23 | P.DS ---
Providers Date of admission: 02/27/19 14:17 Expected date of discharge: 03/01/19 Attending physician: Gonzalo Campbell Consults: 02/27/19 06:37 Consult Physician Routine Consulting Provider: Hudson Soto Consult Reason/Comments: renal mass Do you want consulting provider notified?: Already Contacted 02/28/19 07:49 Consult Physician Routine Consulting Provider: Hermes Cortez Consult Reason/Comments: medical Do you want consulting provider notified?: Already Contacted 03/01/19 02:11 Consult Physician Urgent Consulting Provider: Malik Martinez Consult Reason/Comments: Tortous R. Subclavian Artery with stenosis Do you want consulting provider notified?: Yes Primary care physician: Hermes Cortez [facility] Course: The patient was found to have a 1.6 cm solid mass arising from the upper pole of the right kidney. He was admitted for the purpose of robotically assisted partial nephrectomy which was performed on the date of admission. He had a low- grade fever postop and chest x-ray showed evidence of atelectasis. He felt a pulsatile mass in his right anterior neck late on 02/28 in the evening and the medical consultants obtained a CT of the head and neck and thorax which showed a tortuous right subclavian artery. Vascular surgery consultation was obtained through Dr. Martinez. Carotid ultrasound showed no significant underlying occlusive disease and it was Dr. Martinez's feeling that the patient could be discharged. The patient was discharged on 03/01 at which time he was afebrile and fully ambulatory. He was tolerating regular diet and his incisions appear to be healing well. 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 Plan - Discharge Summary Discharge Rx Participant: No New Discharge Prescriptions: No Action [id number]-Razo [id number] [Excedrin] 1 tab PO Q6H PRN PRN Reason: Headache Discharge Medication List [id number] [id number] [Excedrin] 1 tab PO Q6H PRN 02/21/19 [History] Follow up Appointment(s)/Referral(s): Hudson Soto MD [STAFF PHYSICIAN] - 03/06/19 Discharge Disposition: HOME SELF-CARE
== END 2019-03-01 13:32 | disposition home or self-care (01) | DRG 982 ==
LOC: OR 10:33 → 4SSUR 16:35 → OR 02-27 14:17
PROVIDERS: ADMIT Family Medicine; ATTEND Urology
PROC: 8E0W4CZ Robotic Assisted Procedure of Trunk Region, Percutaneous Endoscopic Approach (ICD-10-PCS; 2019-02-26)
PROC: 0TB04ZZ Excision of Right Kidney, Percutaneous Endoscopic Approach (ICD-10-PCS; principal; 2019-02-26 12:25)
DX: J96.01 Acute respiratory failure with hypoxia (principal); C64.1 Malignant neoplasm of right kidney, except renal pelvis; J98.11 Atelectasis; I71.2 Thoracic aortic aneurysm, without rupture; G43.909 Migraine, unspecified, not intractable, without status migrainosus; F17.210 Nicotine dependence, cigarettes, uncomplicated; Z71.6 Tobacco abuse counseling; Z90.49 Acquired absence of other specified parts of digestive tract; Z98.890 Other specified postprocedural states; Z79.82 Long term (current) use of aspirin
CPT/HCPCS: 70491; 71046; 71260; 80048; 80053; 81001; 85025; 86850; 86860; 86870; 86880; 86885; 86900; 86901; 86970; 86978; 88307; 93880

== ENCOUNTER → 2019-05-21 | Outpatient (CLI) | payer MEDICARE, OTHER ==
[2019-05-21 10:51] LABS: African American GFR (CKD) >90 (>60 ml/min/1.73 sqM); Blood Urea Nitrogen 16 mg/dL (9-20)
--- NOTE | 2019-05-21 12:57 | CT ---
EXAMINATION TYPE: CT angio chest DATE OF EXAM: 05/21/2019 COMPARISON: 04/22/2018 HISTORY: Thoracic Ascending Aortic Aneurysm CT DLP: 582.5 mGycm CONTRAST: CTA thoracic aorta with 3-D reconstruction is performed and with IV Contrast, patient injected with 1 00 mL of Isovue 370. Contrast CTA of the thoracic aorta was performed from the lung apex through the upper abdomen. 3D re construction imaging obtained at a separate workstation. CT Chest: THORACIC AORTA: Ascending thoracic aortic aneurysm measuring 4.9 cm AP dimension. This measurement of 4.7 cm. Mild atheromatous changes seen. There is no evidence for dissection or periaortic collectio n. LUNGS: Atheromatous changes noted. The lungs are clear and free of infiltrate or atelectasis. No pul monary nodule or mass is detected. No pleural effusion or CT evidence of interstitial lung disease. MEDIASTINUM: No hiatal hernia noted. No evidence for mediastinal hematoma. The heart is not enlarge d. No evidence for mediastinal mass or adenopathy. HILAR STRUCTURES: No evidence for mass. No hilar adenopathy is appreciated. OTHER: Stable renal cystic change. Cholecystectomy clips. IMPRESSION- 1. Ascending thoracic aortic aneurysm is slightly larger in size at 4.9 cm AP dimension.
== END | disposition home or self-care (01) ==
LOC: RADCTMAIN 09:52
PROVIDERS: ATTEND Thoracic Surgery (Cardiothoracic Vascular Surgery)
DX: I71.2 Thoracic aortic aneurysm, without rupture (principal)
CPT/HCPCS: 82565; 84520; 71275; 36415; Q9967

== ENCOUNTER → 2019-10-08 | Outpatient (CLI) | payer MEDICARE, OTHER ==
[2019-10-08 16:22] LABS: African American GFR (CKD) >90 (>60 ml/min/1.73 sqM); Blood Urea Nitrogen 19 mg/dL (9-20); Non-African American GFR(CKD) 86 (>60 ml/min/1.73 sqM)
--- NOTE | 2019-10-09 10:33 | CT ---
EXAMINATION TYPE: CT abdomen w con DATE OF EXAM: 10/08/2019 COMPARISON: CT 01/17/2019 HISTORY: f/u renal ca CT DLP: 1263 mGycm Automated exposure control for dose reduction was used. TECHNIQUE: Helical acquisition of images was performed from the lung bases through the top of iliac crest to include entire abdomen. CONTRAST: Performed with Oral Contrast and with IV Contrast, patient injected with 100 mL of Isovue 300. FINDINGS: LUNG BASES: No significant abnormality is appreciated. LIVER/GB: Patient is post cholecystectomy. Liver shows no mass.. PANCREAS: No significant abnormality is seen. SPLEEN: No significant abnormality is seen. ADRENALS: Right adrenal mass shows low attenuation and is similar appearance measuring approximately 2.9 cm, Small left adrenal nodule is also stable subcentimeter in size. KIDNEYS: The upper pole the right kidney shows interval change in appearance likely due to postop angie nge. No evident enhancing mass. Upper pole cystic focus of the left kidney is stable, nonobstructive calculi are present within the bilateral kidneys similar to prior. BOWEL: Diverticular changes associated with the colon.. LYMPH NODES: No significant abnormality is appreciated. OSSEOUS STRUCTURES: Degenerative disc changes are noted in the lower lumbar spine. FREE AIR: No Free Air visible ASCITES: None visible. RETROPERITONEAL ADENOPATHY: No Retroperitoneal Adenopathy visible. OTHER: Right common iliac artery aneurysm measures 2.5 cm, atheromatous changes are present in the di stribution visualized aorta and iliac regions, descending aorta measures approximately 2.5 cm at the level of the hiatus similar to prior and the abdominal aorta measures 3.5 cm at the level just superi or to inferior mesenteric artery, infrarenal location. There is a hiatal hernia as on prior IMPRESSION: POSTOP CHANGES. AORTIC ANEURYSM, ILIAC ANEURYSM. DIVERTICULOSIS. ADRENAL MASSES SHOW SIMILAR APPEARAN CE
== END | disposition home or self-care (01) ==
LOC: RADCTMAIN 15:22
PROVIDERS: ATTEND Urology
DX: I72.3 Aneurysm of iliac artery (principal); K57.90 Diverticulosis of intestine, part unspecified, without perforation or abscess without bleeding; I71.9 Aortic aneurysm of unspecified site, without rupture; N28.89 Other specified disorders of kidney and ureter; C64.2 Malignant neoplasm of left kidney, except renal pelvis; Z98.890 Other specified postprocedural states
CPT/HCPCS: 82565; 84520; 74160; 36415; Q9967

== ENCOUNTER → 2020-06-03 | Outpatient (CLI) | payer MEDICARE, OTHER ==
--- NOTE | 2020-06-03 15:14 | US ---
EXAMINATION TYPE: US thyroid st tissue head/neck DATE OF EXAM: 06/03/2020 COMPARISON: CT neck March 01, 2019 CLINICAL HISTORY: R22.0 Swelling/Mass. Left neck pain GLAND SIZE: Right Lobe: 5.1 x 1.3 x 1.5 cm Overall Parenchyma: homogenous Left Lobe: 4.5 x 1.3 x 1.6 cm Overall Parenchyma: homogeneous Isthmus Thickness: 0.3 cm NODULES RIGHT: # of nodules measured on right: 1 1. 0.7 X 0.4 x 0.5 cm hypoechoic mostly cystic nodule with small solid appearing component at the m id pole with well-defined margins. This nodule is wider than tall and shows no intranodular vasculari ty. Prior size: no previous LEFT: # of nodules measured on left: 0 ISTHMUS: # of nodules measured in the isthmus: 0 Bilateral neck scanned, no evidence of lymphadenopathy. Homogeneous normal-sized thyroid with subcentimeter right-sided mostly cystic nodule marked by the te chnologist. IMPRESSION: As above. Normal-sized thyroid without concerning greater than 1 cm solid or cystic nodul e.
== END | disposition home or self-care (01) ==
LOC: RADUSWWP 14:50
PROVIDERS: ATTEND Family Medicine
DX: R22.0 Localized swelling, mass and lump, head (principal)
CPT/HCPCS: 76536

== ENCOUNTER → 2020-06-15 | Outpatient (CLI) | payer MEDICARE, OTHER ==
[2020-06-15 14:16] LABS: African American GFR (CKD) >90 (>60 ml/min/1.73 sqM); Blood Urea Nitrogen 16 mg/dL (9-20); Non-African American GFR(CKD) 90 (>60 ml/min/1.73 sqM)
--- NOTE | 2020-06-17 15:51 | CT ---
EXAMINATION TYPE: CT angio chest DATE OF EXAM: 06/15/2020 4:14 PM COMPARISON: 05/21/2019 CTA chest. HISTORY: Thoracic aortic aneurysm CT DLP: 844 mGycm Automated exposure control for dose reduction was used. CONTRAST: CTA scan of the thorax is performed without and with IV Contrast, patient injected with 100 ml mL of Isovue 370, thoracic aortic aneurysm protocol. Coronal and sagittal reformatted images were obtained . FINDINGS: LUNGS: Mild paraseptal emphysematous change. A 2 mm density seen on axial image (9:23) appears to rep resent branching vasculature on coronal and sagittal reformatted images (12:15), not likely a pulmona ry nodule. 2 mm pulmonary nodule of the posteromedial left lower lobe (9:31). No airspace opacities. There is no pleural effusion or pneumothorax seen. The tracheobronchial tree is patent. MEDIASTINUM: Thoracic aorta demonstrates no intramural hematoma on precontrast imaging. Ascending tho racic aortic aneurysm measures up to 5.0 cm. No evidence of thoracic aortic dissection. No mediastina l, hilar, or axillary lymphadenopathy. Cardiac size is normal. Calcified coronary artery disease. No pericardial effusion. OTHER: Redemonstrated benign adrenal adenoma on the right. There is thickening of the left adrenal g land that is unchanged. Left renal cyst. Right renal upper pole cortical scarring. Degenerative contreras es of the spine. IMPRESSION: ASCENDING THORACIC AORTIC ANEURYSM MEASURES 5.0 CM AP, PREVIOUSLY 4.9 CM ON 05/21/2019 CT COMPARISON.
== END | disposition home or self-care (01) ==
LOC: RADCTMAIN 13:41
PROVIDERS: ATTEND Thoracic Surgery (Cardiothoracic Vascular Surgery)
DX: I71.2 Thoracic aortic aneurysm, without rupture (principal)
CPT/HCPCS: 82565; 84520; 71275; 36415; Q9967

== ENCOUNTER → 2021-02-03 | Outpatient (CLI) | payer MEDICARE, OTHER ==
--- NOTE | 2021-02-03 12:38 | XR ---
EXAMINATION TYPE: XR chest 2V DATE OF EXAM: 02/03/2021 COMPARISON: 02/27/2019 HISTORY: 70-year-old male C6 4.9, renal mass TECHNIQUE: Frontal and lateral views FINDINGS: Heart borderline in size. Similar tortuosity/ectasia of the thoracic aorta. Diffuse interstitial french ges and mild hyperinflation. [facility] within the lower thoracic spine. No madiha consolidation or pleural effusion seen. IMPRESSION: COPD and borderline heart size. No acute process seen.
[2021-02-03 12:43] LABS: African American GFR (CKD) >90 (>60 ml/min/1.73 sqM); Blood Urea Nitrogen 17 mg/dL (9-20); Non-African American GFR(CKD) 90 (>60 ml/min/1.73 sqM)
--- NOTE | 2021-02-03 14:23 | CT ---
EXAMINATION TYPE: CT abdomen wo/w con DATE OF EXAM: 02/03/2021 COMPARISON: 10/08/2019 HISTORY: 70-year-old male C6 4.9, Renal mass TECHNIQUE: Contiguous axial scanning of the abdomen before and after administration of 100 ml Isovue 300 IV contrast. Delayed images through the kidneys and coronal/sagittal reconstructions performed. CT DLP: 1796 mGycm Automated exposure control for dose reduction was used. FINDINGS: The heart is normal size without pericardial effusion. RCA coronary artery calcifications are present . Lung bases are clear without pleural effusion. Mildly aneurysmal descending thoracic aorta 3.4 cm, unchanged. Upper abdominal aorta aneurysmal at 3.8 cm, unchanged. Mild to moderate atherosclerotic calcifications distal abdominal aorta and visualized common iliac ar teries with fusiform aneurysm of 3.4 cm, unchanged. Right common iliac artery aneurysm of 2.2 cm, unchanged. Liver, left adrenal gland, spleen with tiny hilar splenule, and pancreas appear within normal limits. No biliary ductal dilatation. Portal venous system is patent. Cholecystectomy clips. Nonobstructive 3 mm renal calculus on each side. Benign 2.7 cm posterior left upper pole renal cyst. Redemonstrated cortical deformity along the lateral aspect of the right kidney upper pole from prior surgical resection. Stable 2.3 cm low attenuating nodule of the right adrenal gland. Noncontrast attenuation is -11 Houns field units compatible with a benign lipid rich adrenal adenoma. No dilated small bowel, free fluid, or free air. No mesenteric or retroperitoneal lymphadenopathy. Partially visualized normal appendix. Generalized colonic diverticulosis. No pericolonic inflammatory change. Bones: Moderate degenerative disc disease L4-L5 and L5-S1. Hypertrophic facet arthropathy lower lumba r spine. Degenerative grade 1 retrolisthesis L2-L3 and L1-L2. Baastrup's disease. IMPRESSION: 1. POSTRESECTION CHANGES ALONG THE UPPER POLE OF THE RIGHT KIDNEY. NO EVIDENCE FOR LOCOREGIONAL RECUR RENCE OR METASTATIC DISEASE IN THE ABDOMEN. 2. A NONOBSTRUCTIVE 3 MM CALCULUS WITHIN EACH KIDNEY AND A BENIGN 2.7 CM LEFT RENAL CYST. 3. STABLE BENIGN 2.3 CM LIPID RICH RIGHT ADRENAL ADENOMA. 4. SCATTERED COLONIC DIVERTICULOSIS WITHOUT ACUTE DIVERTICULITIS. 5. STABLE MILDLY ANEURYSMAL AORTA (DESCENDING THORACIC AT 3.4 CM, UPPER ABDOMINAL 3.8 CM, DISTAL ABDO SUNG 3.4 CM, AND RIGHT COMMON ILIAC AT 2.2 CM).
== END | disposition home or self-care (01) ==
LOC: RADCTMAIN 11:57
PROVIDERS: ATTEND Urology
DX: J44.9 Chronic obstructive pulmonary disease, unspecified (principal); N20.0 Calculus of kidney; N28.1 Cyst of kidney, acquired; D35.01 Benign neoplasm of right adrenal gland; K57.30 Diverticulosis of large intestine without perforation or abscess without bleeding; I71.4 Abdominal aortic aneurysm, without rupture; C64.9 Malignant neoplasm of unspecified kidney, except renal pelvis; Z98.890 Other specified postprocedural states
CPT/HCPCS: 82565; 84520; 71046; 74170; 36415; Q9967

== ENCOUNTER 2021-12-31 21:30 | Inpatient (IN) | payer MEDICARE, OTHER ==
[2021-12-31] MEDS ORDERED: MORPHINE SULFATE 4 MG/ML SYRINGE IV STA (21:39)
[2021-12-31] MEDS ORDERED: LABETALOL 5 MG/ML VIAL MDV IVP STA (21:39)
[2021-12-31] MEDS ORDERED: SODIUM CHLORIDE 0.9% 1,000 ML IV STA (21:39)
[2021-12-31] MEDS ORDERED: ONDANSETRON 4 MG/2 ML VIAL IVP STA (21:39)
[2021-12-31 21:58] LABS: Basophils # (A) 0.1 k/uL (0-0.2); Basophils % (A) 1 %; Eosinophils # (A) 0.3 k/uL (0-0.7); Eosinophils % (A) 3 %; HCT 48.4 % (39.0-53.0); HGB 15.8 gm/dL (13.0-17.5); Lymphocytes # (A) 1.6 k/uL (1.0-4.8); Lymphocytes % (A) 15 %; MCHC 32.7 g/dL (31.0-37.0); MCV 94.8 fL (80.0-100.0); Monocytes # (A) 0.5 k/uL (0-1.0); Monocytes % (A) 5 %; Neutrophils # (A) 8.1 k/uL (1.3-7.7); Neutrophils % (A) 76 %; Platelet Count 271 k/uL (150-450); RDW 13.8 % (11.5-15.5); WBC 10.7 k/uL (3.8-10.6)
--- NOTE | 2021-12-31 22:05 | ED ---
Chest Pain HPI - General Chief Complaint: Chest Pain Stated Complaint: Chest Pain Time Seen by Provider: 12/31/21 21:39 Source: patient, family, RN notes reviewed, old records reviewed Mode of arrival: wheelchair Limitations: no limitations - History of Present Illness Initial Comments: This is a 71-year-old male to the emergency department for evaluation. Patient presents today for evaluation regards to chest pain patient willingness chest secondary severe pain at times diaphoretic and short of breath cannot take a deep breath. Patient has history of thoracic ascending aneurysm. Patient is having severe chest pain. He has had cardiac evaluation the past but nothing recent. No fever cough or congestion. No travel history or sick contacts. Patient states chest pain started 1 hour ago MD Complaint: chest pain -: hour(s) (1) Onset: during rest Pain Location: substernal, left chest Pain Radiation: none Severity: severe Severity scale (1-10): 9 Quality: tightness, aching Consistency: constant Improves With: nothing Worsens With: nothing Context: recent illness (Recent CVA) Anginal Symptoms: nausea Treatments Prior to Arrival: none - Related Data Home Medications Medication Instructions Recorded Confirmed [id number] [id number] 1 tab PO Q6H PRN 02/21/19 02/27/19 [Excedrin] Allergies Allergy/AdvReac Type Severity Reaction Status Date / Time No Known Allergies Allergy Verified 12/31/21 21:42 Review of Systems ROS Statement: Those systems with pertinent positive or pertinent negative responses have been documented in the HPI. ROS Other: All systems not noted in ROS Statement are negative. EKG Findings - EKG Comments: EKG Findings:: UG is sinus rhythm 78 VA 179 QRS 104 QTC 421 Past Medical History Past Medical History: CVA/TIA Additional Past Medical History / Comment(s): AAA History of Any Multi-Drug Resistant Organisms: None Reported Past Surgical History: Cholecystectomy, Hernia Repair Additional Past Surgical History / Comment(s): LEFT KIDNEY SURGERY A CHILD (PATIENT STATES HE HAD A TUMOR ON URETER). Right partial nephrectomy. Past Anesthesia/Blood Transfusion Reactions: No Reported Reaction Past Psychological History: No Psychological Hx Reported Smoking Status: Never smoker Past Alcohol Use History: None Reported Past Drug Use History: None Reported - Past Family History Mother Family Medical History: No Reported History General Exam - General Exam Comments Initial Comments: Patient is doing Murphy sign holding chest General appearance: alert, in no apparent distress, anxious Head exam: Present: atraumatic, normocephalic, normal inspection Eye exam: Present: normal appearance, PERRL, EOMI. Absent: scleral icterus, conjunctival injection, periorbital swelling ENT exam: Present: normal exam, mucous membranes moist Neck exam: Present: normal inspection. Absent: tenderness, meningismus, lymphadenopathy Respiratory exam: Present: normal lung sounds bilaterally. Absent: respiratory distress, wheezes, rales, rhonchi, stridor Cardiovascular Exam: Present: regular rate, normal rhythm, normal heart sounds. Absent: systolic murmur, diastolic murmur, rubs, gallop, clicks GI/Abdominal exam: Present: soft, normal bowel sounds. Absent: distended, tenderness, guarding, rebound, rigid Extremities exam: Present: normal inspection, full ROM, normal capillary refill. Absent: tenderness, pedal edema, joint swelling, calf tenderness Back exam: Present: normal inspection Neurological exam: Present: alert, oriented X3, CN II-XII intact Psychiatric exam: Present: normal affect, normal mood Skin exam: Present: warm, dry, intact, normal color. Absent: rash Course Vital Signs 12/31/21 12/31/21 12/31/21 21:39 21:59 22:02 Temperature 97.7 F Pulse Rate 79 68 71 Respiratory 23 16 Rate Blood Pressure 180/110 151/106 135/93 O2 Sat by Pulse 97 94 L Oximetry 12/31/21 01/01/22 22:56 00:46 Temperature Pulse Rate 70 63 Respiratory 20 20 Rate Blood Pressure 153/103 144/88 O2 Sat by Pulse 93 L 94 L Oximetry - Reevaluation(s) Reevaluation #1: 01/01/22 00:52 Medical record is reviewed 01/01/22 00:52 Decision made to CTA chest for dissection on arrival to ER Reevaluation #2: 01/01/22 00:52 Chest pain and blood pressure currently significant improved Reevaluation #3: 01/01/22 00:52 Patient informed results questions answered - Consultations Consultation #1: Spoke with EM regarding admission there agreeable Chest Pain MDM - MDM 71-year-old male in severe distress secondary to chest pain. CTA chest with history of aneurysm is negative for dissection patient will be admitted for cardiac observation with mild troponin elevation Critical Care Time Critical Care Time: Yes Total Critical Care Time: 31 Disposition Clinical Impression: Atypical chest pain, Chest pain Disposition: ADMITTED IP TO THIS HOSP Condition: Fair Is patient prescribed a controlled substance at d/c from ED?: No
[2021-12-31 22:10] LABS: Albumin 4.6 g/dL (3.5-5.0); Calcium 9.3 mg/dL (8.4-10.2); Magnesium 1.9 mg/dL (1.6-2.3); Potassium 4.2 mmol/L (3.5-5.1); Total Bilirubin 0.7 mg/dL (0.2-1.3); Total Protein 7.8 g/dL (6.3-8.2)
[2021-12-31 22:18] LABS: Partial Thromboplastin Time 26.5 sec (22.0-30.0); Prothrombin Time 10.8 sec (9.0-12.0)
[2021-12-31] MEDS ORDERED: LORazepam 2 MG/ML INJ IV STA (22:25)
[2021-12-31] MEDS ORDERED: HYDROmorphone 1 MG/ML 1 ML SYRINGE IVP STA (22:34)
--- NOTE | 2021-12-31 22:51 | CT ---
EXAMINATION TYPE: CT abdomen pelvis w con DATE OF EXAM: 12/31/2021 COMPARISON: 02/03/2021 HISTORY: c/o chest pain CT DLP: 2275.3 mGycm Automated exposure control for dose reduction was used. CONTRAST: Performed with IV Contrast, patient injected with 100 mL of Isovue 370. Lung bases are clear of consolidation. There is no pleural effusion. Heart size is normal. There is n o pericardial effusion. Liver spleen and stomach pancreas appear intact. Bowel is nondilated. There a re clips from cholecystectomy. There is mild subsegmental atelectasis at the posterior lung bases. There is no adrenal mass. Kidneys show satisfactory contrast opacification. There is no hydronephrosi s. Ureters are not dilated. There is no retroperitoneal adenopathy. There is a 4 cm cortical cyst pos terior left kidney. There is 3 mm calculus in the right kidney. There is one millimeter calculus lowe r pole left kidney. There is 2 mm calculus posterior left kidney. Delayed images show normal renal ex cretion. Abdominal aorta is intact. There is no aneurysm or dissection. There is mild atheromatous ch kieran in the abdominal aorta. Bladder distends smoothly. There is enlarged prostate gland that measure s 6.9 cm. There is no inguinal hernia. There is no free fluid in the pelvis. There are multiple sigmo id diverticula. There is no diverticulitis. Appendix is posterior and appears normal. There is no mesenteric edema. There is no ascites or free air. There is no bowel obstruction. The lum bar vertebrae have normal alignment. There is no compression fracture. There is vacuum disc at L4-5 a nd L5-S1. The bony pelvis is intact. The hip joints are intact. IMPRESSION: No acute abnormality of the abdomen and pelvis. Colonic diverticulosis without diverticulitis. Enlarg ed prostate. Nonobstructing bilateral renal calculi. No adverse change compared to old exam.
--- NOTE | 2021-12-31 22:57 | CT ---
EXAMINATION TYPE: CT angio chest DATE OF EXAM: 12/31/2021 COMPARISON: 06/15/2020 HISTORY: chest pain CT DLP: 769.2 mGycm Automated exposure control for dose reduction was used. CONTRAST: Performed with IV Contrast, patient injected with 100 mL of Isovue 370. There are Three-D postprocessed images. There is some emphysematous changes in the periphery of both upper lobes. There is fibrotic change an d some honeycomb pattern in the right posterior lung field. There is coarsening of interstitial pollo ngs. Thoracic aorta is atheromatous. There is no dissection. 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 Heart size is normal. There is no pericardial effusion. There is no pleural effusion. There is normal contrast opacification of the pulmonary arteries. There is no filling defect. The tho racic spine is intact. There is no compression fracture. There is some spurring of the vertebra. Ster num is intact. IMPRESSION: No evidence of pulmonary embolism. Aneurysm of the ascending aorta without change. No dissection. Pul monary interstitial fibrosis. Pulmonary emphysema. No suspicious pulmonary mass. Interstitial pulmona ry infiltrates are significantly increased compared to old exam.
[2022-01-01] MEDS ORDERED: NITROGLYCERIN SL TABS 0.4 MG TAB SUBLINGUAL PRN ×2 (00:39→11:47)
[2022-01-01] MEDS ORDERED: HEPARIN SODIUM 1,000 UN/ML (10ML VL) IV ONE ×2 (00:39→05:36)
[2022-01-01] MEDS ORDERED: ASPIRIN 81 MG PO STA (00:39)
[2022-01-01] MEDS ORDERED: HEPARIN SOD,PORK IN 0.45% NACL 25,000 UNIT in 0.45% NACL 1 250ML.BAG IV SCH ×2 (00:45→06:00)
[2022-01-01] MEDS ORDERED: HEPARIN SODIUM 1,000 UN/ML (10ML VL) IV PRN (05:36)
[2022-01-01] MEDS: NITROGLYCERIN OINT 1 INCH/GM PACKET TOPICAL SCH ×4 (08:30→23:33)
[2022-01-01] MEDS: ATORVASTATIN 80 MG TAB PO SCH (08:30)
[2022-01-01] MEDS: carvediloL 6.25 MG TAB PO SCH ×2 (08:30→17:07)
[2022-01-01] MEDS: MORPHINE SULFATE 4 MG/ML SYRINGE IV PRN ×3 (08:32→15:21)
[2022-01-01] MEDS ORDERED: METOPROLOL TARTRATE 25 MG TAB PO SCH (09:00)
[2022-01-01] MEDS ORDERED: ATORVASTATIN 80 MG TAB PO STA (09:56)
[2022-01-01] MEDS ORDERED: IV FLUID CONTINUATION 900 ML IV ONE (10:33)
[2022-01-01] MEDS: fentaNYL (PF) 50 MCG/ML 2 ML AMP IV ONE ×2 (10:40→12:03)
[2022-01-01] MEDS ORDERED: LIDOCAINE 1% INJ 10MG/ML (20 ML MDV) ONE (10:45)
[2022-01-01] MEDS ORDERED: VERAPAMIL 2.5 MG/ML 2 ML AMP ONE (10:47)
[2022-01-01] MEDS ORDERED: LIDOCAINE 1% INJ 10MG/ML (20 ML MDV) SQ ONE ×2 (10:47→10:56)
[2022-01-01] MEDS ORDERED: VERAPAMIL SYRINGE (5 MG/10 ML) INTRAARTER ONE ×2 (10:50→11:43)
[2022-01-01] MEDS ORDERED: MIDAZOLAM 2 MG/2 ML VIAL IV ONE (10:51)
[2022-01-01] MEDS: MIDAZOLAM 2 MG/2 ML VIAL IV ONE ×2 (10:51→10:59)
[2022-01-01] MEDS: HEPARIN SODIUM 1,000 UN/ML (10ML VL) IV ONE ×2 (11:09→11:26)
[2022-01-01] MEDS ORDERED: HEPARIN SODIUM 1,000 UN/ML (10ML VL) ONE (11:09)
[2022-01-01] MEDS ORDERED: fentaNYL (PF) 50 MCG/ML 2 ML AMP ONE (11:12)
[2022-01-01] MEDS ORDERED: CLOPIDOGREL 75 MG TAB ONE (11:15)
[2022-01-01] MEDS ORDERED: ASPIRIN 325 MG TAB ONE (11:18)
[2022-01-01] MEDS ORDERED: NITROGLYCERIN 1000MCG/10ML SYRINGE INTRACORON ONE (11:28)
[2022-01-01] MEDS ORDERED: niCARdipine Syringe (1,000 mcg/10 mL) INTRACORON ONE (11:29)
[2022-01-01] MEDS ORDERED: CLOPIDOGREL 75 MG TAB PO ONE (11:34)
[2022-01-01] MEDS ORDERED: ASPIRIN 325 MG TAB PO ONE (11:36)
[2022-01-01] MEDS ORDERED: IOPAMIDOL-370 100ML BTL INJ ONE (11:41)
[2022-01-01] MEDS ORDERED: IOPAMIDOL-370 125ML BTL INJ ONE (11:41)
[2022-01-01] MEDS ORDERED: MAG HYDROX/AL HYDROX/SIMETH 30 ML CUP PO PRN (11:47)
[2022-01-01] MEDS ORDERED: ATROPINE SULFATE 0.1 MG/ML 10ML SYRINGE IV PRN (11:47)
[2022-01-01] MEDS ORDERED: RX INFO: IV CONTRAST WAS GIVEN 1 EACH MISC MISCELLANE PRN (11:47)
[2022-01-01] MEDS ORDERED: ZOLPIDEM 5 MG TAB PO PRN (11:47)
--- NOTE | 2022-01-01 11:59 | P.PCN ---
Date of Procedure: 01/01/22 Operative Findings: CARDIAC CATHETERIZATION AND PERCUTANEOUS CORONARY INTERVENTION PERFORMING PHYSICIAN: Teja Wilde MD, RPVI PROCEDURE PERFORMED: 1. Selective right and left coronary angiogram 2. Selective right common femoral artery and 3. Successful stenting of proximal right coronary artery using 4.0 x 18 and 4.0 x 12 Xience SHA which with an excellent angiographic results 4. Aspiration thrombectomy from the right coronary artery 5. Intravascular ultrasound of the right coronary artery INDICATION: Acute coronary syndrome in this 71-year-old gentleman who presented to the [facility] with a chest discomfort. He is known to have hypertension and dyslipidemia and recent history of stroke. Beside that he is a smoker COMPLICATION: None APPROACH: Initially right radial artery but subsequently right common femoral artery LEVEL OF SEDATION: Moderate with the sedation time off 60 minutes PROCEDURE DESCRIPTION: After obtaining an informed consent the patient was brought to the cardiac research laboratory technician. The right radial artery was cannulated using micropuncture technique, the micropuncture wire passed easily then I placed a 6-Israeli sheath at the right radial artery. I gave the patient 2 mg of verapamil IV. The right subclavian was extremely tortuous and I had heart by manipulating the catheter from the radial approach and for that reason I aborted the right radial approach and I went from the right groin. The right common femoral artery was cannulated using micropuncture technique, the micropuncture wire passed easily then I placed a 6-Israeli sheath at the right common femoral artery. Selective right and left coronary angiogram performed with JR 3.5 and JL4 catheters. Left heart catheterization was not performed but attempted. After that I did intervene on the right coronary artery. SELECTIVE CORONARY ANGIOGRAM: The right coronary artery: Is a large caliber vessel as a calcified vessel. The proximal RCA appeared to have a plaque rupture with thrombus formation. The mid RCA appeared to have mild disease only and the RCA distally appeared to have mild disease and bifurcates into PDA and PLV branches both appeared to be angiographically normal. Left main: Is angiographically normal. Bifurcates into left circumflex and ramus intermedius and left anterior descending artery The left circumflex: Is a large caliber vessel and nondominant vessel. The proximal left circumflex appeared to have mild disease only. Gives rises into the first OM branch which appeared to be angiographically normal. The circumflex continue after that in the AV groove with mild to moderate diffuse disease only. The ramus intermedius: Has mild disease only. The left anterior descending artery: Is a large caliber vessel. The proximal LAD appeared to have mild disease only and gives rises into a large diagonal branch which seems to be angiographically normal. The mid LAD gives rises into a second large diagonal branch which seems to be angiographically normal. The LAD continues after that as a moderate ca liber vessel and does not reach the apex. It looks like almost dual LAD system with a large diagonal branch. PCI OF THE RCA: Anticoagulation was achieved using heparin with continuous ACT monitoring throughout the procedure. The RCA was engaged using JL 3.5 guiding catheter with a short did. Subsequently I wire it using a run-through wire. I did initially balloon angioplasty using 3.5 x 12 mm balloon which was inflated under 14 jacob for 20 seconds. Subsequently I deployed 4.0 x 18 mm stent where the stent was positioned under fluoroscopy guidance and deployed under 18 jacob for 20 seconds. I posterity the stent using 4.5 mm NC balloon. The following angiogram showed what it seems to be the thrombus was migrated proximally just by the proximal edge of the stent. I attempted aspiration thrombectomy using X port catheter but that did not change the results. Because of that I decided to do intravascular ultrasound which showed what it seems to be significant plaque appears to be soft to plaque proximal to the stented which was deployed initially. For that reason I decided to deployed another stent. I deployed 4.0 x 12 mm another stent with about 2 mm overlap between the 2 stents. The second stent was deployed under 16 jacob for 20 seconds. Finally I did postradiation using 5 mm NC balloon were I postdilated the first and second stents. The final angiogram showed good angiographic results and the procedure was completed without any complication CONCLUSION: #1 Plaque rupture with a thrombus formation appears to be of large burden involving the proximal right coronary artery. I did successful stenting of the RCA as described above #2 Mild disease involving the left coronary system POSTPROCEDURE MANAGEMENT: #1 dual antiplatelet therapy #2 aggressive cholesterol control #3 follow-up with the patient
[2022-01-01] MEDS ORDERED: SODIUM CHLORIDE 0.9% 1,000 ML in EMPTY BAG 1 BAG IV SCH (12:00)
--- NOTE | 2022-01-01 13:14 | P.CRDCN ---
History of Present Illness Consult date: 01/01/22 Consult reason: chest pain History of present illness: The patient is a 8-year-old male with past medical history of multiple CVA, hypertension and dyslipidemia, who presented with the hospital with new onset of chest discomfort. He states he was sitting in his kitchen last night when he had new onset of chest pressure. He states this radiates up to his neck. He states he continues to have this discomfort, although it is not as bad in [facility]. He also reports a headache. DIAGNOSTICS: EKG shows sinus mechanism with subtle ST changes Chest x-ray shows no acute cardiopulmonary process CT of the chest shows stable ascending aneurysm of 4.[address] of the abdomen and pelvis unremarkable Vital signs: Blood pressure 159/72, pulse 64, respiratory rate 18, temp 97.9F, SpO2 94% on room air Lab work: WBC 10, hemoglobin 15.8, hematocrit 40.4, platelet 271, d-dimer 0.56, sodium 140, potassium 4.2, BUN 19, creatinine 1.1, magnesium 1.9, AST 32, ALT 36, troponin 0.08, 2.3, 7.0 PAST MEDICAL HISTORY: Multiple CVA, hypertension, dyslipidemia REVIEW OF SYSTEMS: No fever or chills. No cough or expectoration. No diaphoresis. Patient denies headache, dizziness, blurred vision, double vision. Patient denies any stomach discomfort. No nausea, vomiting. No hematochezia. No hematemesis. Denies any black stools or blood in his stools. Denies dysuria or hematuria. No muscle weakness or numbness. PHYSICAL EXAMINATION: This is a 71-year-old female in no apparent distress at the time of my examination. HEENT: Head is atraumatic, normocephalic. Pupils are equal, round. Sclerae anicteric. Conjunctivae are clear. Mucous membranes of the mouth are moist. Neck is supple. There is no jugular venous distention. No carotid bruit is heard. CHEST EXAMINATION: Lungs are clear to auscultation. No chest wall tenderness is noted on palpation or with deep breathing. HEART EXAMINATION: Heart regular rate and rhythm. S1, S2 heard. No murmurs, gall ops or rub. ABDOMEN: Soft, nontender. Bowel sounds are heard. No organomegaly noted. EXTREMITIES: 2+ peripheral pulses with no evidence of peripheral edema and no calf tenderness noted. NEUROLOGIC EXAMINATION: Patient is awake, alert and oriented x3. FINAL ASSESSMENT AND PLAN: Non-ST elevated myocardial infarction, proceed with coronary angiogram History of prior CVA Hypertension Dyslipidemia PLAN: Start carvediolol and discontinue metoprolol Start nitropaste Start losartan in the afternoon Continue heparin Proceed with coronary angiogram I am dictating on behalf of Dr Kyle Frankel's history/physical and assessment/plan. Past Medical History Past Medical History: CVA/TIA Additional Past Medical History / Comment(s): AAA History of Any Multi-Drug Resistant Organisms: None Reported Past Surgical History: Cholecystectomy, Hernia Repair Additional Past Surgical History / Comment(s): LEFT KIDNEY SURGERY A CHILD (PATIENT STATES HE HAD A TUMOR ON URETER). Right partial nephrectomy. Past Anesthesia/Blood Transfusion Reactions: No Reported Reaction Past Psychological History: No Psychological Hx Reported Smoking Status: Never smoker Past Alcohol Use History: None Reported Additional Past Alcohol Use History / Comment(s): 1 1/2 PPD FOR ABOUT 56 YR. Past Drug Use History: None Reported - Past Family History Mother Family Medical History: No Reported History Medications and Allergies Home Medications Medication Instructions Recorded Confirmed Type [id number] 1 tab PO Q6H PRN 02/21/19 02/27/19 History [Excedrin] Allergies Allergy/AdvReac Type Severity Reaction Status Date / Time No Known Allergies Allergy Verified 12/31/21 21:42 Physical Exam Vitals: Vital Signs Temp Pulse Pulse Resp BP BP Pulse Ox 01/01/22 02:30 97.7 F 63 18 168/93 96 01/01/22 01:27 64 18 153/98 94 L 01/01/22 00:46 63 20 144/88 94 L 12/31/21 22:56 70 20 153/103 93 L 12/31/21 22:02 71 135/93 94 L 12/31/21 21:59 68 16 151/106 12/31/21 21:39 97.7 F 79 23 180/110 97 Intake and Output 12/31/21 01/01/22 01/01/22 22:59 06:59 14:59 Other: Weight 120.202 kg 120.202 kg Results 12/31/21 21:44 12/31/21 21:44 Cardiac Enzymes 0312/31/21 01/01/22 Range/Units 21:44 21:44 00:57 AST 32 (17-59) U/L Troponin I 0.085 H* 2.360 H* (0.000-0.034) ng/mL 01/01/22 Range/Units 04:24 AST (17-59) U/L Troponin I 7.020 H* (0.000-0.034) ng/mL Coagulation 12/31/21 Range/Units 21:44 PT 10.8 (9.0-12.0) sec APTT 26.5 (22.0-30.0) sec CBC 12/31/21 Range/Units 21:44 WBC 10.7 H (3.8-10.6) k/uL RBC 5.10 (4.30-5.90) m/uL Hgb 15.8 (13.0-17.5) gm/dL Hct 48.4 (39.0-53.0) % Plt Count 271 (150-450) k/uL Comprehensive Metabolic Panel 12/31/21 Range/Units 21:44 Sodium 140 (137-145) mmol/L Potassium 4.2 (3.5-5.1) mmol/L Chloride 105 (98-107) mmol/L Carbon Dioxide 27 (22-30) mmol/L BUN 19 (9-20) mg/dL Creatinine 1.10 (0.66-1.25) mg/dL Glucose 99 (74-99) mg/dL Calcium 9.3 (8.4-10.2) mg/dL AST 32 (17-59) U/L ALT 36 (4-49) U/L Alkaline Phosphatase 118 (38-126) U/L Total Protein 7.8 (6.3-8.2) g/dL Albumin 4.6 (3.5-5.0) g/dL Current Medications Generic Name Dose Route Start Last Admin Trade Name Freq PRN Reason Stop Dose Admin Aspirin 325 mg 01/02/22 09:00 Aspirin 325 Mg Tab PO DAILY [facility] Atorvastatin Calcium 80 mg 01/01/22 09:00 01/01/22 08:30 Atorvastatin 80 Mg Tab PO 80 mg DAILY MARU Administration Carvedilol 6.25 mg 01/01/22 08:30 01/01/22 08:30 Carvedilol 6.25 Mg Tab PO 6.25 mg BID-W/MEALS [facility] Administration Heparin Sodium (Porcine) 0 unit 01/01/22 05:36 Heparin Sodium 1,000 Un/Ml (10ml Vl) IV PER PROTOCOL PRN Low PTT Protocol Heparin Sodium/Sodium Chloride 250 mls @ 10.001 mls/hr 01/01/22 06:00 01/01/22 06:15 25,000 unit/ Sodium Chloride IV 8.32 units/kg/hr .Q24H MARU 10.001 mls/hr Administration Protocol 8.32 UNITS/KG/HR Losartan Potassium 25 mg 01/01/22 12:00 Losartan 25 Mg Tab PO DAILY [facility] Morphine Sulfate 4 mg 01/01/22 00:39 Morphine Sulfate 4 Mg/Ml Syringe IV Q4HR PRN Chest Pain Nitroglycerin 0.4 mg 01/01/22 00:39 Nitroglycerin Sl Tabs 0.4 Mg Tab SUBLINGUAL Q5M PRN Chest Pain Nitroglycerin 1 inch 01/01/22 08:30 01/01/22 08:30 Nitroglycerin Oint 1 Inch/Gm Packet TOPICAL 1 inch Q6HR [facility] Administration Intake and Output 12/31/21 01/01/22 01/01/22 22:59 06:59 14:59 Other: Weight 120.202 kg 120.202 kg 12/31/21 21:44 12/31/21 21:44
[2022-01-01] MEDS: LOSARTAN 25 MG TAB PO SCH (14:43)
[2022-01-01] MEDS: TAMSULOSIN 0.4 MG CAP.ER.24H PO SCH (20:40)
[2022-01-01] MEDS: Acetaminophen-Codeine 300-30mg TAB PO PRN (22:25)
[2022-01-02] MEDS: NITROGLYCERIN OINT 1 INCH/GM PACKET TOPICAL SCH (05:41)
[2022-01-02] MEDS: carvediloL 6.25 MG TAB PO SCH ×2 (06:50→17:25)
[2022-01-02 07:59] LABS: African American GFR (CKD) >90 (>60 ml/min/1.73 sqM); Non-African American GFR(CKD) 88 (>60 ml/min/1.73 sqM)
[2022-01-02] MEDS: TAMSULOSIN 0.4 MG CAP.ER.24H PO SCH ×2 (08:25→20:22)
[2022-01-02] MEDS: LOSARTAN 25 MG TAB PO SCH (08:25)
[2022-01-02] MEDS: ATORVASTATIN 80 MG TAB PO SCH (08:25)
[2022-01-02] MEDS: CLOPIDOGREL 75 MG TAB PO SCH (08:25)
[2022-01-02] MEDS ORDERED: ASPIRIN 325 MG TAB PO SCH (09:00)
[2022-01-02] MEDS: Acetaminophen-Codeine 300-30mg TAB PO PRN (09:41)
[2022-01-02 10:59] LABS: Chol/HDL Ratio 3.76 Ratio; LDL Cholesterol,Calculated 76.3 mg/dL (0.0-131.0); VLDL Calculation 16.22 mg/dL (5.00-40.00)
--- NOTE | 2022-01-02 12:50 | P.PN ---
Subjective This is a 71-year-old male with a past medical history of hypertension, dyslipidemia, chronic nicotine dependence, recent 2 CVAs in [place] November 2021, diagnosed with PFO in [place], Was discharged with Zeny in [place], abdominal thoracic aneurysm. He recently established care with Dr. Wilde on 12/30/2021. We have been consulted for chest pain. Patient presents to the emergency department with complaints of chest pain with radiation up to his neck. Troponins were elevated 0.08, 2.3, 7.0. EKG revealed sinus mechanism with subtle inferior ST changes. Cardiac catheterization was recommended. Patient underwent cardiac catheterization with Dr. Wilde on 01/01/2022 which revealed plaque rupture with thrombus formation of large burden involving the proximal RCA. Successful PCI of the RCA. Proximal left circumflex, mild disease, ramus intermedius mild disease, proximal LAD mild disease, mid RCA with mild disease, RCA distally appears to have mild disease 01/02/2022 Patient seen and examined at bedside, no acute distress. He denies any further chest pain. He denies any shortness of breath, lightheadedness or dizziness. Right groin cath site is clean, dry, intact, 2+ peripheral pulses. He endorses a slight headache. Labs serum creatinine 0.8 He is currently maintained on aspirin 81 mg daily, atorvastatin 80 mg daily, carvedilol 6.25 mg twice a day, Plavix 75 mg daily, losartan 25 mg daily He is maintaining sinus mechanism on telemetry, heart rate 6070s, no evidence of atrial fibrillation noted. GENERAL: Well-appearing, well-nourished and in no acute distress. NECK: Supple without JVD or thyromegaly. LUNGS: Breath sounds clear to auscultation bilaterally. Respiration equal and unlabored. No wheezes, rales or rhonchi. HEART: Regular rate and rhythm without murmurs, rubs or gallops. S1 and S2 heard. EXTREMITIES: Normal range of motion, no edema. No clubbing or cyanosis. Peripheral pulses intact. SKIN: Right groin site, clean dry, dressing in tact no hemoatoma ASSESSMENT NSTEMI s/p PCI to RCA on 01/01/2022 Hypertension Dyslipidemia Chronic nicotine dependence Recent two CVAs in [place] in November 2021 Diagnosed with PFO in [place] November 2021 History of Abdominal thoracic aneurysm PLAN Obtain 2D echocardiogram Continue Aspirin, Plavix Restart patient's Eliquis. Patient was discharged with Eliquis in [place] after his strokes, likely atrial fibrillation and we will continue Eliquis Continue carvedilol and losartan and statin Continue cardiac telemetry Further recommendations based on clinical course Hopefully discharge in next 24 hours Follow up with Dr. Wilde in 1 week on discharge Nurse Practitioner note has been reviewed, I agree with a documented findings and plan of care. Patient was seen and examined. Objective - Vital Signs Vital signs: Vital Signs Temp 98 F 01/02/22 11:01 Pulse 66 01/02/22 11:01 Resp 16 01/02/22 11:01 BP 118/80 01/02/22 11:01 Pulse Ox 94 L 01/02/22 11:01 Intake & Output 01/01/22 01/02/22 01/02/22 18:59 06:59 18:59 Intake Total 100 10 240 Output Total 300 600 Balance -200 -590 240 Intake: IV 100 10 0.9 10 Oral 240 Output: Urine 300 600 Other: Voiding Method Toilet Urinal # Voids 2 1 - Labs CBC & Chem 7: 12/31/21 21:44 01/02/22 06:56 Labs: Abnormal Lab Results - Last 24 Hours (Table) 01/02/22 Range/Units 06:56 HDL Cholesterol 33.50 L (40.00-60.00) mg/dL
--- NOTE | 2022-01-02 13:41 | P.PN ---
Subjective Progress Note Date: 01/02/22 This is a 71-year-old gentleman with past medical history of recent CVA 2 with TPA in [place], November 2021, PFO also diagnosed in [place]-discharged on Eliquis, CVA/TIA, AAA, partial nephrectomy and multiple other medical issues admitted with NSTEMI (Neurology appointment previously arranged with Dr. Bermudez and pending.) Evaluated by cardiology, underwent cardiac catheterization, plaque rupture with thrombus formation appears to be of large burden involving proximal RCA, aspiration thrombectomy from right coronary artery,successful stenting of proximal RCA, mild disease involving the left coronary system. Tolerated procedure well. Telemetry sinus rhythm. Denies Chest pain, palpitations or shortness of breath. Renal function stable. Objective - Vital Signs Vital signs: Vital Signs Temp 98 F 01/02/22 11:01 Pulse 66 01/02/22 11:01 Resp 16 01/02/22 11:01 BP 118/80 01/02/22 11:01 Pulse Ox 94 L 01/02/22 11:01 Intake & Output 01/01/22 01/02/22 01/02/22 18:59 06:59 18:59 Intake Total 100 10 240 Output Total 300 600 Balance -200 -590 240 Intake: IV 100 10 0.9 10 Oral 240 Output: Urine 300 600 Other: Voiding Method Toilet Urinal # Voids 2 1 - Exam PHYSICAL EXAM: VITAL SIGNS: [As above] GENERAL: Sitting up at side of bed, no acute distress HEENT: Conjunctivae normal. eyes normal. NECK: Supple, No JVD. CARDIOVASCULAR: S1, S2 regular. No murmur RESPIRATION: Breath sounds diminished in the bases. No rhonchi or crackles. No bronchial breathing. ABDOMEN: Soft, nontender . No guarding. no masses palpable. No ascites, No hepatosplenomegaly.Bowel sounds heard. LEGS: No edema. no swelling PSYCHIATRY: Alert and oriented X3, mood and affect normal. NERVOUS SYSTEM: Cranial N 2-12 grossly normal. Moves all 4 limbs. No focal deficits. Strength and sensation grossly intact.. Skin: Warm and dry, no rash - Labs CBC & Chem 7: 12/31/21 21:44 01/02/22 06:56 Labs: Abnormal Lab Results - Last 24 Hours (Table) 01/02/22 Range/Units 06:56 HDL Cholesterol 33.50 L (40.00-60.00) mg/dL Assessment and Plan Assessment: NSTEMI,S/P successful PCI of the RCA Recent CVAs 2 in [place] , diagnosed with PFO Hypertension Dyslipidemia History of abdominal thoracic aneurysm History of partial nephrectomy Prior nicotine dependence Plan: Continue on current medication regime ,monitoring and symptomatic treatment. Echo pending. Discharge planning in progress pending final DC recommendations and clearance per cardiology. The impression and plan of care has been dictated as directed. : I performed a history and examination of this patient, discussed the same with the dictator. I agree with the dictator's note ,documented as a scribe. Any additional findings or plans will be noted.
[2022-01-02 14:41] VITALS: BMI 36.9
--- NOTE | 2022-01-02 16:46 | ECHOF ---
Referral Reason:NSTEMI s/p PCI MEASUREMENTS -------- HEIGHT: 182.9 cm WEIGHT: 120.2 kg BP: IVSd: 1.3 cm (0.6 - 1.1) LVIDd: 5.2 cm (3.9 - 5.3) LVPWd: 1.5 cm (0.6 - 1.1) IVSs: 1.9 cm LVIDs: 3.4 cm LVPWs: 1.7 cm Ao Diam: 3.8 cm (2.0 - 3.7) AV Cusp: 2.5 cm (1.5 - 2.6) LA Diam: 4.2 cm (2.7 - 3.8) MV EXCURSION: 16.074 mm (> 18.000) MV EF SLOPE: 195 mm/s (70 - 150) EPSS: 0.8 cm MV E Lorenzo: 0.55 m/s MV DecT: 254 ms MV A Lorenzo: 0.79 m/s MV E/A Ratio: 0.70 RAP: 5.00 mmHg RVSP: 7.97 mmHg FINDINGS -------- This was a technically difficult study with suboptimal views. The left ventricular size is normal. There is moderate concentric left ventricular hypertrophy. O verall left ventricular systolic function is mild-moderately impaired with, an EF between 40 - 45 %. Mid to basal inferiorlateral is hypokinetic The right ventricle is normal in size. The left atrial size is normal. The right atrial size is normal. Lumason used Aortic valve is trileaflet and is mildly thickened. The mitral valve is normal. There is trace mitral regurgitation. The tricuspid valve appears structurally normal. Trace tricuspid regurgitation present. Right homer tricular systolic pressure is normal at < 35 mmHg. There is no pulmonic regurgitation present. The aortic root is dilated measuring 3.8 cm. IVC Not well visulized. Echo free space may represent effusion or a pericardial fat pad. CONCLUSIONS -------- 1. The left ventricular size is normal. 2. There is moderate concentric left ventricular hypertrophy. 3. Overall left ventricular systolic function is mild-moderately impaired with, an EF between 40 - 45 %. 4. Mid to basal inferiorlateral is hypokinetic 5. Aortic valve is trileaflet and is mildly thickened. 6. There is trace mitral regurgitation. 7. Trace tricuspid regurgitation present. 8. The aortic root is dilated measuring 3.8 cm. 9. Echo free space may represent effusion or a pericardial fat pad. JOURNEYMAN PLUMBER: Angie Kohli RDCS
[2022-01-02] MEDS: APIXABAN 5 MG TAB PO SCH (20:22)
[2022-01-03] MEDS: carvediloL 6.25 MG TAB PO SCH (06:38)
[2022-01-03 07:51] VITALS: BP 109/72; PULSE 67; RESP 20; TEMP 98.4
[2022-01-03] MEDS: ATORVASTATIN 80 MG TAB PO SCH (08:09)
[2022-01-03] MEDS: LOSARTAN 25 MG TAB PO SCH (08:09)
[2022-01-03] MEDS: CLOPIDOGREL 75 MG TAB PO SCH (08:09)
[2022-01-03] MEDS: TAMSULOSIN 0.4 MG CAP.ER.24H PO SCH (08:10)
[2022-01-03] MEDS: APIXABAN 5 MG TAB PO SCH (08:10)
[2022-01-03 08:18] LABS: Basophils # (A) 0.1 k/uL (0-0.2); Basophils % (A) 1 %; Eosinophils # (A) 0.2 k/uL (0-0.7); Eosinophils % (A) 2 %; HCT 43.6 % (39.0-53.0); HGB 14.1 gm/dL (13.0-17.5); Lymphocytes # (A) 1.3 k/uL (1.0-4.8); Lymphocytes % (A) 15 %; MCH 30.9 pg (25.0-35.0); MCHC 32.3 g/dL (31.0-37.0); MCV 95.7 fL (80.0-100.0); Mean Platelet Volume 8.3; Monocytes # (A) 0.6 k/uL (0-1.0); Monocytes % (A) 7 %; Neutrophils # (A) 6.1 k/uL (1.3-7.7); Neutrophils % (A) 74 %; Platelet Count 220 k/uL (150-450); RBC 4.55 m/uL (4.30-5.90); WBC 8.2 k/uL (3.8-10.6)
[2022-01-03 08:26] LABS: African American GFR (CKD) >90 (>60 ml/min/1.73 sqM); Anion Gap 5 mmol/L; Blood Urea Nitrogen 14 mg/dL (9-20); Calcium 8.7 mg/dL (8.4-10.2); Carbon Dioxide 26 mmol/L (22-30); Chloride 105 mmol/L (98-107); Glucose 114 mg/dL (74-99); Non-African American GFR(CKD) 90 (>60 ml/min/1.73 sqM); Sodium 136 mmol/L (137-145)
[2022-01-03] MEDS ORDERED: ASPIRIN 81 MG PO SCH (09:00)
--- NOTE | 2022-01-03 10:49 | P.DS ---
Providers Date of admission: 01/02/22 07:52 Expected date of discharge: 01/03/22 Attending physician: Hermes Cortez Consults: 01/01/22 00:39 Consult Physician Urgent Consulting Provider: Sarah Ramirez Consult Reason/Comments: cp Do you want consulting provider notified?: Yes 01/01/22 11:47 Consult Physician Routine Consulting Provider: [facility] Consult Reason/Comments: Post Interventional patient Do you want consulting provider notified?: Already Contacted Primary care physician: Hermes Cortez Hospital Course: Final Diagnoses: NSTEMI,S/P successful PCI of the RCA Recent CVAs 2 in [place] , diagnosed with PFO Hypertension Dyslipidemia History of abdominal thoracic aneurysm History of partial nephrectomy Prior nicotine dependence Hospital course:This is a 71-year-old gentleman with past medical history of recent CVA 2 with TPA in [place], November 2021, PFO also diagnosed in [place]- discharged on Eliquis, CVA/TIA, AAA, partial nephrectomy and multiple other medical issues admitted with NSTEMI (Neurology appointment previously arranged with Dr. Bermudez and pending.) Evaluated by cardiology, underwent cardiac catheterization, plaque rupture with thrombus formation appears to be of large burden involving proximal RCA, aspiration thrombectomy from right coronary artery,successful stenting of proximal RCA, mild disease involving the left c oronary system. Tolerated procedure well. Telemetry sinus rhythm. Denies Chest pain, palpitations or shortness of breath. Renal function stable. Echo performed yesterday suboptimal, reported moderate concentric left ventricular hypertrophy, mild to moderately impaired LV function, EF 40-45%, mild to basal inferior lateral hypokinetic, aortic valve is a trileaflet, mildly thickened, aortic root dilated measuring 3.8 cm .Telemetry sinus rhythm, renal function stable. Significant clinical improvement. Cleared by cardiology for discharge. Patient will be discharged home today in a stable condition with guarded prognosis. The impression and plan of care has been dictated as directed. : I performed a history and examination of this patient, discussed the same with the dictator. I agree with the dictator's note ,documented as a scribe. Any additional findings or plans will be noted. Patient Condition at Discharge: Stable Plan - Discharge Summary Discharge Rx Participant: No New Discharge Prescriptions: New Clopidogrel [Plavix] 75 mg PO DAILY 30 Days #30 tab Aspirin 81 mg PO DAILY 30 Days #30 tab Nitroglycerin Sl Tabs [Nitrostat] 0.4 mg SUBLINGUAL Q5M PRN #25 tab PRN Reason: Chest Pain carvediloL [Coreg] 6.25 mg PO BID-W/MEALS 30 Days #60 tab Losartan [Cozaar] 25 mg PO DAILY 30 Days #30 tab Pantoprazole [Protonix] 40 mg PO DAILY #30 tab Continue Tamsulosin [Flomax] 0.4 mg PO BID Atorvastatin [Lipitor] 80 mg PO DAILY Apixaban [Eliquis] 5 mg PO BID Discharge Medication List Apixaban [Eliquis] 5 mg PO BID 01/01/22 [History] Atorvastatin [Lipitor] 80 mg PO DAILY 01/01/22 [History] Tamsulosin [Flomax] 0.4 mg PO BID 01/01/22 [History] Clopidogrel [Plavix] 75 mg PO DAILY 30 Days #30 tab 01/02/22 [Rx] Aspirin 81 mg PO DAILY 30 Days #30 tab 01/03/22 [Rx] Losartan [Cozaar] 25 mg PO DAILY 30 Days #30 tab 01/03/22 [Rx] Nitroglycerin Sl Tabs [Nitrostat] 0.4 mg SUBLINGUAL Q5M PRN #25 tab 01/03/22 [Rx] Pantoprazole [Protonix] 40 mg PO DAILY #30 tab 01/03/22 [Rx] carvediloL [Coreg] 6.25 mg PO BID-W/MEALS 30 Days #60 tab 01/03/22 [Rx] Follow up Appointment(s)/Referral(s): Philipp Gonzalez MD [REFERRING] - 1 Week (as previously scheduled) Teja Wilde MD [STAFF PHYSICIAN] - 01/10/22 4:00 pm Hermes Cortez DO [Primary Care Provider] - 3 Days Activity/Diet/Wound Care/Special Instructions: Cardiology Instructions After Cardiac Catheterization with Stent Placement: 1. Aspirin as anti-platelet therapy - Aspirin lessens the chance of heart attack and stroke. It helps prevent blood clots from forming, allowing the blood to flow more easily. Each day, you will take one 81 mg (non-enteric coated) tablet daily. You will be taking aspirin as a lifelong medication. Do not stop unless instructed by your doctor. 2. Anti-platelet Therapy. -In addition to aspirin, you will take ONE of the following anti-platelet medications daily. This will help prevent a clot from forming in your stent: Plavix (clopidogrel) -You will need to take your anti-platelet medicine every day for 12 months -Please consult your heart doctor before you stop this medicine. -They may want you to continue for a longer period of time. 3. Statins -A statin medication lowers cholesterol levels in the blood. This helps slow the progression of heart disease. - Please take your statin medication as prescribed by your doctor. -You may be taking one of the following statins: Lipitor (atorvastatin) Other Medications: -ACEI/ Angiotensin II Receptor Linda- (Your medication: Losartan) can help your heart work better after a heart attack and decrease the amount of damage from a heart attack -Beta linda. (Your medication: Carvedilol) Is a medication that protects your heart from stress and can prevent future heart attacks. It can slow your heart rate. It can take weeks for your body to get used to a beta linda. The dose may need to be changed a few times as your body adjusts -Eliquis: You were placed on this medication after your Stroke In [place]. Please continue taking this medication at this time. Continue aspirin, Plavix and Eliquis until follow up with Dr. Wilde in 1 week, for further adjustments of medications. Monitor for bleeding. Do not stop taking these medicines without talking to your doctor. -Take all other medicines as directed by your doctor. Do not take any extra aspirin or ibuprofen. They can increase your risk of bleeding. Many [id number] drugs contain aspirin. If you are unsure about what the drug contains, check with your pharmacist before taking it. -For mild discomfort, you may take plain Tylenol (acetaminophen). Follow dose directions, but do not take more than 4,000 mg of acetaminophen in 24 hours. Contact your doctor right away or go to the nearest hospital Emergency Room if you have: -Severe angina or chest pain. (This may be a sign of a problem with your stent.) -Excessive bruising, blood in urine/stool or black tarry stools. Healthy LifeStyle It is important to keep a heart healthy lifestyle. This can improve your long- term health and decrease your risk for heart attacks. -Quitting tobacco: the most important thing you can do to protect your health. -Managing your blood cholesterol, blood pressure, weight, and stress. -The importance of regular exercise. -Heart Healthy Diet: Include more plants in your diet. Eat lots of fresh vegetables and fresh fruits. Eat good fats: plant based oils, avocado, nuts, beans, legumes. Eat more seafood. Limit Meat. Switch to whole grains. -Avoid fried foods and animal fats and processed meats Follow up with [facility], Justin Dillard [phone]
--- NOTE | 2022-01-03 10:56 | P.PN ---
Subjective This is a 71-year-old male with a past medical history of hypertension, dyslipidemia, chronic nicotine dependence, recent 2 CVAs in [place] November 2021, diagnosed with PFO in [place], Was discharged with Eliquis in [place], abdominal thoracic aneurysm. He recently established care with Dr. Wilde on 12/30/2021. We have been consulted for chest pain. Patient presents to the emergency department with complaints of chest pain with radiation up to his neck. Troponins were elevated 0.08, 2.3, 7.0. EKG revealed sinus mechanism with subtle inferior ST changes. Cardiac catheterization was recommended. Patient underwent cardiac catheterization with Dr. Wilde on 01/01/2022 which revealed plaque rupture with thrombus formation of large burden involving the proximal RCA. Successful PCI of the RCA. Proximal left circumflex, mild disease, ramus intermedius mild disease, proximal LAD mild disease, mid RCA with mild disease, RCA distally appears to have mild disease 01/03/2022 Patient seen and examined at bedside, no acute distress. He denies any further chest pain. He denies any shortness of breath, lightheadedness or dizziness. Right groin cath site is clean, dry, intact, 2+ peripheral pulses. No new concerns. Hemodynamically stable. Echocardiogram revealed EF 40-45% Labs, WBC 8.2, hemoglobin 14.1, platelets 220, sodium 136, potassium 4.0, BUN 14, serum creatinine 0.8, triglycerides 81, cholesterol 126, LDL 76, HDL 33 He is currently maintained on aspirin 81 mg daily, atorvastatin 80 mg daily, carvedilol 6.25 mg twice a day, Plavix 75 mg daily, losartan 25 mg daily, Eliquis 5 mg twice a day He is maintaining sinus mechanism on telemetry, heart rate 6070s, no evidence of atrial fibrillation noted. GENERAL: Well-appearing, well-nourished and in no acute distress. NECK: Supple without JVD or thyromegaly. LUNGS: Breath sounds clear to auscultation bilaterally. Respiration equal and unlabored. No wheezes, rales or rhonchi. HEART: Regular rate and rhythm without murmurs, rubs or gallops. S1 and S2 heard. EXTREMITIES: Normal range of motion, no edema. No clubbing or cyanosis. Peripheral pulses intact. SKIN: Right groin site, clean dry, dressing in tact no hematoma ASSESSMENT NSTEMI s/p PCI to RCA on 01/01/2022 Ischemic cardiomyopathy with an EF of 4045% Hypertension Dyslipidemia Chronic nicotine dependence Recent two CVAs in [place] in November 2021 Diagnosed with PFO in [place] November 2021 History of Abdominal thoracic aneurysm PLAN Continue dual antiplatelet with Aspirin, Plavix Patient was discharged with Eliquis in [place] after his strokes, likely atrial fibrillation and we will continue Eliquis Continue carvedilol and losartan and statin From a cardiology perspective, patient is stable to be discharged. Follow up with Dr. Wilde in 1 week, patient has a follow appointment on 01/10/22. Nurse Practitioner note has been reviewed, I agree with a documented findings and plan of care. Patient was seen and examined. Objective - Vital Signs Vital signs: Vital Signs Temp 98.4 F 01/03/22 07:50 Pulse 67 01/03/22 07:50 Resp 20 01/03/22 07:50 BP 109/72 01/03/22 07:50 Pulse Ox 93 L 01/03/22 07:50 Intake & Output 01/02/22 01/03/22 01/03/22 18:59 06:59 18:59 Intake Total 540 20 120 Balance 540 20 120 Weight 120.202 kg Intake: IV 20 Invasive Line 1 10 Invasive Line 2 10 Intake, IV Titration 0 Amount IV Fluid Continuation 900 0 ml @ 0 mls/hr IV .STK- [facility] Rx#:[id number] Oral 540 120 Other: Voiding Method Toilet Urinal # Voids 1 2 - Labs CBC & Chem 7: 01/03/22 07:30 01/03/22 07:30 Labs: Abnormal Lab Results - Last 24 Hours (Table) 01/02/22 01/03/22 Range/Units 06:56 07:30 Sodium 136 L (137-145) mmol/L Glucose 114 H (74-99) mg/dL HDL Cholesterol 33.50 L (40.00-60.00) mg/dL
== END 2022-01-03 11:57 | disposition home or self-care (01) | DRG 247 ==
LOC: EC 21:30 → 3SCARD 01-01 00:39 → OBSVTOIN 01-02 07:52
PROVIDERS: ADMIT Family Medicine; ATTEND Family Medicine
PROC: B240ZZ3 Ultrasonography of Single Coronary Artery, Intravascular (ICD-10-PCS; 2022-01-01)
PROC: 027034Z Dilation of Coronary Artery, One Artery with Drug-eluting Intraluminal Device, Percutaneous Approach (ICD-10-PCS; principal; 2022-01-01 10:30)
PROC: 02C03ZZ Extirpation of Matter from Coronary Artery, One Artery, Percutaneous Approach (ICD-10-PCS; 2022-01-01 10:30)
PROC: B2111ZZ Fluoroscopy of Multiple Coronary Arteries using Low Osmolar Contrast (ICD-10-PCS; 2022-01-01 10:30)
DX: I21.4 Non-ST elevation (NSTEMI) myocardial infarction (principal); Q21.1 Atrial septal defect; E78.5 Hyperlipidemia, unspecified; F17.200 Nicotine dependence, unspecified, uncomplicated; I11.9 Hypertensive heart disease without heart failure; I25.5 Ischemic cardiomyopathy; I71.2 Thoracic aortic aneurysm, without rupture; Z79.01 Long term (current) use of anticoagulants; Z79.02 Long term (current) use of antithrombotics/antiplatelets; Z79.82 Long term (current) use of aspirin; Z79.899 Other long term (current) drug therapy; Z86.73 Personal history of transient ischemic attack (TIA), and cerebral infarction without residual deficits; Z90.5 Acquired absence of kidney
CPT/HCPCS: 36415; 71275; 74177; 80048; 80053; 80061; 82565; 83690; 83735; 83880; 84484; 85025; 85379; 85610; 85730; 92978; 93005; 93306; 93454; 96361; 96374; 96375; 99291

== ENCOUNTER 2022-01-10 08:12 | Observation (INO) | payer MEDICARE, OTHER ==
[2022-01-10] MEDS ORDERED: SODIUM CHLORIDE 0.9% 1,000 ML IV STA (08:44)
[2022-01-10] MEDS ORDERED: MORPHINE SULFATE 4 MG/ML SYRINGE IVP STA (08:44)
--- NOTE | 2022-01-10 08:57 | ED ---
General Adult HPI - General Chief complaint: Dizziness Stated complaint: SOB/Dizziess/Head Pressure Time Seen by Provider: 01/10/22 08:29 Source: patient, family, RN notes reviewed, old records reviewed Mode of arrival: wheelchair Limitations: no limitations - History of Present Illness Initial comments: Patient is a 71-year-old male with past medical history remarkable for stroke diagnosed in early November, heart attack diagnosed last week for which she received an RCA stent, who presents emergency Department complaining of a one to 2 day history of worsening left periorbital swelling associated with lightheadedness and nausea. States he is having pain around the left eye. Denies any pain with movement of the left eye. Denies any injury to the left eye. States it started swelling up on his own, has been extremely uncomfortable since. Denies any fevers, chills, cough. States he does occasionally feel lightheaded secondary to the pain. States he has tenderness over his head around the left eye, but denies any other headaches. Denies any chest pain currently, but states that he may have had some intermittently over the last week since discharge following his heart attack. Endorses some shortness of breath which may be related to the pain per patient. Denies any cough, congestion. Denies any sore throat. Denies any abdominal pain, nausea, vomiting. Patient presents over concern for left eye infection. Patient states that his left eye is swollen shut, he cannot see out of it. He states that since his stroke, he does have residual left-sided blurry vision that is unchanged when he props his eyelid open. - Related Data Home Medications Medication Instructions Recorded Confirmed Apixaban [Eliquis] 5 mg PO BID 01/01/22 01/10/22 Atorvastatin [Lipitor] 80 mg PO DAILY 01/01/22 01/10/22 Tamsulosin [Flomax] 0.4 mg PO BID 01/01/22 01/10/22 Previous Rx's Medication Instructions Recorded Clopidogrel [Plavix] 75 mg PO DAILY 30 Days #30 tab 01/02/22 Aspirin 81 mg PO DAILY 30 Days #30 tab 01/03/22 Losartan [Cozaar] 25 mg PO DAILY 30 Days #30 tab 01/03/22 Nitroglycerin Sl Tabs [Nitrostat] 0.4 mg SUBLINGUAL Q5M PRN #25 tab 01/03/22 Pantoprazole [Protonix] 40 mg PO DAILY #30 tab 01/03/22 carvediloL [Coreg] 6.25 mg PO BID-W/MEALS 30 Days #60 01/03/22 tab Allergies Allergy/AdvReac Type Severity Reaction Status Date / Time No Known Allergies Allergy Verified 01/10/22 10:12 Review of Systems ROS Statement: Those systems with pertinent positive or pertinent negative responses have been documented in the HPI. Review of Systems: CONST: Denies fever EYES: Endorses chronic blurry vision on the left eye, periorbital swelling over the left eye ENT: Denies nasal congestion C/V: Denies Chest pain RESP: Denies shortness of breath GI: Denies abdominal pain : Denies dysuria SKIN: Denies rash. MSK: Denies joint pain. NEURO: Denies headache ROS Other: All systems not noted in ROS Statement are negative. Past Medical History Past Medical History: CVA/TIA, Myocardial Infarction (CA) Additional Past Medical History / Comment(s): AAA History of Any Multi-Drug Resistant Organisms: None Reported Past Surgical History: Cholecystectomy, Hernia Repair Additional Past Surgical History / Comment(s): LEFT KIDNEY SURGERY A CHILD (PATIENT STATES HE HAD A TUMOR ON URETER). Right partial nephrectomy. Past Anesthesia/Blood Transfusion Reactions: No Reported Reaction Past Psychological History: No Psychological Hx Reported Smoking Status: Never smoker Past Alcohol Use History: None Reported Past Drug Use History: None Reported - Past Family History Mother Family Medical History: No Reported History General Exam - General Exam Comments Initial Comments: General: Appears in mild to moderate distress secondary to left eye swelling and pain. HEAD: Normal with no signs of head trauma. EYES: PERRLA, EOMI, conjunctiva normal, no discharge. When propped open, pupils are equal bilaterally, proximal 3 mm. Right eye is normal. Patient has tenderness to palpation surrounding the left eye with edema of the upper and lower eyelids. No proptosis. Blepharitis. Conjunctival injection. ENT: Hearing grossly intact, normal oropharynx. RESPIRATORY: Clear breath sounds bilaterally. No wheezes, rales, or rhonchi. C/V: Regular rate and rhythm. S1 and S2 auscultated, no edema, peripheral pulses 2+ and intact throughout ABD: Abd is soft, nontender, nondistended EXT: Normal range of motion, no obvious deformity SKIN: No rashes or lesions observed on exposed skin. NEURO: Alert and oriented 4. No new focal sensory or strength deficits. NIH is 0. Cranial nerves II through XII are intact, except for some minor deficits secondary to swelling surrounding his left eye. Limitations: no limitations Course Vital Signs 01/10/22 01/10/22 01/10/22 08:17 09:24 12:26 Temperature 97.9 F 96.9 F L 98 F Pulse Rate 70 92 61 Respiratory 18 14 14 Rate Blood Pressure 150/91 139/91 146/105 O2 Sat by Pulse 95 91 L 94 L Oximetry Medical Decision Making - Medical Decision Making Based on patient's presentation and physical exam, there is concern for septal versus preseptal cellulitis of the left eye. There is blepharitis as well as a significant amount of his edema. We will obtain CT brain as well as orbits with contrast, as well as obtain infectious labs include blood cultures. Due to the patient's intermittent chest discomfort, which she currently does not have but the recent cardiac cath last week, we will obtain physical troponin addition to screening EKG and chest x-ray. He'll be provided with IV analgesia, and started on empiric antibiotics Unasyn and vancomycin. Patient was in agreement this plan. We will evaluate the eye as well for possible corneal abrasion. Laboratory studies were relatively unremarkable except for a troponin of 0.155, which is likely residual from his hernia intervention last week. I did discuss this with cardiology, and they were in agreement with treatment and the troponin. Patient will be continued on his home. He will be given an aspirin. Lactic acid is within normal limits. No leukocytosis. . EKG showed no signs of acute ischemia. Chest x-ray did reveal possible mild increased opacities bilaterally. CT brain revealed no acute intracranial process. CT orbits with contrast revealed findings concerning for dacryoadenitis of the left eye. Recommend follow-up MRI orbit. On reevaluation, patient's pain is somewhat improved. I did discuss the findings with the patient. I would like to obtain a better eye exam at this time, and after multiple attempts we were able to secure tetracaine eyedrops from pharmacy.Patient's eye exam revealed a corneal abrasion located over the precordium position and the left pupil. Patient's pain is improved following the tetracaine eyedrops. Patient be started on erythromycin eye ointment in addition to artificial tears. He was in agreement with this plan.Patient does have mild blepharitis as well. No pain on movement of the eye. I had treated the patient on results of his labs and imaging. I believe it is best admitted to the hospital team under the troponin as well as Mr. IV antibiotics. Ophthalmology will be consulted, after multiple times and was able to reach Dr. Goins who agreed with the plan as well as the consult. Patient will be continued on IV Unasyn and vancomycin. He will also be continued on her erythromycin eye ointment. Patient is not a contact lens wearer. I spoke with cardiology who agreed with monitoring the troponin, as is elevations likely secondary to the recent cardiac cath and stenting. On reevaluation, patient remains relatively asymptomatic. He states that his pain is improved. He is resting comfortably. Denies any shortness of breath or chest pain at this time. BNP which was added on was within normal limits. COVID-19 swab is pending. I did update him on the plan and he was in agreement.We will continue the patient's home Eliquis dosing. I spoke with the admitting team under Dr. Cortez who accepted the patient. Patient was therefore admitted to telemetry bed. - Lab Data Result diagrams: 01/10/22 09:05 01/10/22 09:05 Lab Results 01/10/22 01/10/22 01/10/22 Range/Units 09:05 09:05 09:05 WBC 8.9 (3.8-10.6) k/uL RBC 4.73 (4.30-5.90) m/uL Hgb 14.5 (13.0-17.5) gm/dL Hct 44.2 (39.0-53.0) % MCV 93.4 (80.0-100.0) fL MCH 30.6 (25.0-35.0) pg MCHC 32.8 (31.0-37.0) g/dL RDW 13.9 (11.5-15.5) % Plt Count 301 (150-450) k/uL MPV 7.7 Neutrophils % 80 % Lymphocytes % 12 % Monocytes % 4 % Eosinophils % 3 % Basophils % 1 % Neutrophils # 7.1 (1.3-7.7) k/uL Lymphocytes # 1.1 (1.0-4.8) k/uL Monocytes # 0.3 (0-1.0) k/uL Eosinophils # 0.3 (0-0.7) k/uL Basophils # 0.1 (0-0.2) k/uL PT 10.9 (9.0-12.0) sec INR 1.0 (<1.2) APTT 26.8 (22.0-30.0) sec Sodium 137 (137-145) mmol/L Potassium 4.5 (3.5-5.1) mmol/L Chloride 106 (98-107) mmol/L Carbon Dioxide 28 (22-30) mmol/L Anion Gap 3 mmol/L BUN 13 (9-20) mg/dL Creatinine 0.72 (0.66-1.25) mg/dL Est GFR (CKD-EPI)AfAm >90 (>60 ml/min/1.73 sqM) Est GFR (CKD-EPI)NonAf >90 (>60 ml/min/1.73 sqM) Glucose 113 H (74-99) mg/dL Plasma Lactic Acid Christopher (0.7-2.0) mmol/L Calcium 9.0 (8.4-10.2) mg/dL Total Bilirubin 0.8 (0.2-1.3) mg/dL AST 25 (17-59) U/L ALT 25 (4-49) U/L Alkaline Phosphatase 101 (38-126) U/L Troponin I (0.000-0.034) ng/mL NT-Pro-B Natriuret Pep pg/mL Total Protein 6.9 (6.3-8.2) g/dL Albumin 3.9 (3.5-5.0) g/dL Coronavirus (PCR) (Not Detectd) 01/10/22 01/10/22 01/10/22 Range/Units 09:05 09:05 09:05 WBC (3.8-10.6) k/uL RBC (4.30-5.90) m/uL Hgb (13.0-17.5) gm/dL Hct (39.0-53.0) % MCV (80.0-100.0) fL MCH (25.0-35.0) pg MCHC (31.0-37.0) g/dL RDW (11.5-15.5) % Plt Count (150-450) k/uL MPV Neutrophils % % Lymphocytes % % Monocytes % % Eosinophils % % Basophils % % Neutrophils # (1.3-7.7) k/uL Lymphocytes # (1.0-4.8) k/uL Monocytes # (0-1.0) k/uL Eosinophils # (0-0.7) k/uL Basophils # (0-0.2) k/uL PT (9.0-12.0) sec INR (<1.2) APTT (22.0-30.0) sec Sodium (137-145) mmol/L Potassium (3.5-5.1) mmol/L Chloride (98-107) mmol/L Carbon Dioxide (22-30) mmol/L Anion Gap mmol/L BUN (9-20) mg/dL Creatinine (0.66-1.25) mg/dL Est GFR (CKD-EPI)AfAm (>60 ml/min/1.73 sqM) Est GFR (CKD-EPI)NonAf (>60 ml/min/1.73 sqM) Glucose (74-99) mg/dL Plasma Lactic Acid Christopher 0.8 (0.7-2.0) mmol/L Calcium (8.4-10.2) mg/dL Total Bilirubin (0.2-1.3) mg/dL AST (17-59) U/L ALT (4-49) U/L Alkaline Phosphatase (38-126) U/L Troponin I 0.155 H* (0.000-0.034) ng/mL NT-Pro-B Natriuret Pep 291 pg/mL Total Protein (6.3-8.2) g/dL Albumin (3.5-5.0) g/dL Coronavirus (PCR) (Not Detectd) 01/10/22 Range/Units 12:00 WBC (3.8-10.6) k/uL RBC (4.30-5.90) m/uL Hgb (13.0-17.5) gm/dL Hct (39.0-53.0) % MCV (80.0-100.0) fL MCH (25.0-35.0) pg MCHC (31.0-37.0) g/dL RDW (11.5-15.5) % Plt Count (150-450) k/uL MPV Neutrophils % % Lymphocytes % % Monocytes % % Eosinophils % % Basophils % % Neutrophils # (1.3-7.7) k/uL Lymphocytes # (1.0-4.8) k/uL Monocytes # (0-1.0) k/uL Eosinophils # (0-0.7) k/uL Basophils # (0-0.2) k/uL PT (9.0-12.0) sec INR (<1.2) APTT (22.0-30.0) sec Sodium (137-145) mmol/L Potassium (3.5-5.1) mmol/L Chloride (98-107) mmol/L Carbon Dioxide (22-30) mmol/L Anion Gap mmol/L BUN (9-20) mg/dL Creatinine (0.66-1.25) mg/dL Est GFR (CKD-EPI)AfAm (>60 ml/min/1.73 sqM) Est GFR (CKD-EPI)NonAf (>60 ml/min/1.73 sqM) Glucose (74-99) mg/dL Plasma Lactic Acid Christopher (0.7-2.0) mmol/L Calcium (8.4-10.2) mg/dL Total Bilirubin (0.2-1.3) mg/dL AST (17-59) U/L ALT (4-49) U/L Alkaline Phosphatase (38-126) U/L Troponin I (0.000-0.034) ng/mL NT-Pro-B Natriuret Pep pg/mL Total Protein (6.3-8.2) g/dL Albumin (3.5-5.0) g/dL Coronavirus (PCR) Not Detected (Not Detectd) - EKG Data -: EKG Interpreted by Me EKG Comments: 12-lead Electrocardiogram Interpretation Note EKG was reviewed and interpreted by myself. 12-lead ECG performed at 0834 is interpreted by me as revealing normal sinus rhythm at a rate of 65 beats per minute. Sharon is normal. [place] interval is 182 ms, QRS durations 170 ms, QTc is 02/05/1935 milliseconds.. There were mild T-wave inversions in lead 2, 3, aVF, which are chronic and seen prior EKG. This aligns with recent stenting of RCA.. R wave progression across the precordium was satisfactory. By my interpretation this EKG is non-diagnostic for acute ischemia. Critical Care Time Critical Care Time: Yes Total Critical Care Time: 35 Critical Care Time: Upon my evaluation, this patient had a high probability of imminent or life- threatening deterioration due to dacryoadenitis, elevated troponin, which required my direct attention, intervention, and personal management. I have personally provided 35 minutes of critical care time exclusive of time spent on separately billable procedures. Time includes review of laboratory data, radiology results, discussion with consultants, and monitoring for potential decompensation. Interventions were performed as documented in my note. Disposition Clinical Impression: Dacryoadenitis, Elevated troponin Disposition: ADMITTED IP TO THIS HOSP Condition: Stable
[2022-01-10] MEDS ORDERED: VANCOMYCIN IV PER PHARMACY 1 EACH MISC MISCELLANE PRN (09:02)
[2022-01-10] MEDS ORDERED: AMPICILLIN-SULBACTAM 3 GM in SODIUM CHLORIDE 0.9% 100 ML IVPB STA (09:02)
[2022-01-10] MEDS ORDERED: VANCOMYCIN 1,750 MG in SODIUM CHLORIDE 0.9% 500 ML 500 ML IVPB STA (09:09)
[2022-01-10] MEDS ORDERED: ONDANSETRON 4 MG/2 ML VIAL IVP STA (09:14)
[2022-01-10] MEDS ORDERED: diphenhydrAMINE 50 MG/ML 1 ML VIAL IVP STA (09:14)
[2022-01-10 09:49] LABS: Basophils # (A) 0.1 k/uL (0-0.2); Basophils % (A) 1 %; Eosinophils # (A) 0.3 k/uL (0-0.7); Eosinophils % (A) 3 %; HCT 44.2 % (39.0-53.0); HGB 14.5 gm/dL (13.0-17.5); Lymphocytes # (A) 1.1 k/uL (1.0-4.8); Lymphocytes % (A) 12 %; MCH 30.6 pg (25.0-35.0); MCHC 32.8 g/dL (31.0-37.0); MCV 93.4 fL (80.0-100.0); Mean Platelet Volume 7.7; Monocytes # (A) 0.3 k/uL (0-1.0); Monocytes % (A) 4 %; Neutrophils # (A) 7.1 k/uL (1.3-7.7); Neutrophils % (A) 80 %; Platelet Count 301 k/uL (150-450); RBC 4.73 m/uL (4.30-5.90); RDW 13.9 % (11.5-15.5); WBC 8.9 k/uL (3.8-10.6)
[2022-01-10] MEDS ORDERED: TETRACAINE 0.5% OPHTH (PF) DROPS 4 ML BTL LEFT EYE STA (09:52)
[2022-01-10] MEDS ORDERED: FLUORESCEIN STRIPS 1 MG STRIP LEFT EYE ONE (09:52)
[2022-01-10 09:53] LABS: Partial Thromboplastin Time 26.8 sec (22.0-30.0); Prothrombin Time 10.9 sec (9.0-12.0)
[2022-01-10 09:59] LABS: Glucose 113 mg/dL (74-99); Sodium 137 mmol/L (137-145)
[2022-01-10 10:00] LABS: ALT 25 U/L (4-49); AST 25 U/L (17-59); African American GFR (CKD) >90 (>60 ml/min/1.73 sqM); Albumin 3.9 g/dL (3.5-5.0); Alkaline Phosphatase 101 U/L (38-126); Anion Gap 3 mmol/L; Blood Urea Nitrogen 13 mg/dL (9-20); Carbon Dioxide 28 mmol/L (22-30); Chloride 106 mmol/L (98-107); Non-African American GFR(CKD) >90 (>60 ml/min/1.73 sqM); Potassium 4.5 mmol/L (3.5-5.1); Total Bilirubin 0.8 mg/dL (0.2-1.3); Total Protein 6.9 g/dL (6.3-8.2)
--- NOTE | 2022-01-10 10:13 | XR ---
EXAMINATION TYPE: XR chest 2V DATE OF EXAM: 01/10/2022 COMPARISON: Chest x-ray February 03, 2021. Recent chest CT December 31, 2021 HISTORY: Difficulty breathing. TECHNIQUE: Frontal and lateral views of the chest are obtained. FINDINGS: There are new bilateral multifocal increased opacities. No pleural effusion or pneumothor ax seen bilaterally. The cardiac silhouette size is stable and upper limits of normal with atheroscle rotic and ectatic thoracic aorta. The osseous structures are intact. Cholecystectomy clips are rede monstrated. IMPRESSION: New bilateral multifocal increased opacities. Correlate clinically to exclude covid-19 i nfection.
--- NOTE | 2022-01-10 11:08 | CT ---
EXAMINATION TYPE: CT brain wo con DATE OF EXAM: 01/10/2022 COMPARISON: None HISTORY: RAHMAN, dizziness, Lt eye pain CT DLP: 1163.4 mGycm Automated exposure control for dose reduction was used. FINDINGS: There is preseptal edema involving the left orbit. Orbital globes are symmetric. Mild generalized degenerative change. No mass effect or midline shift. Calvarium appears intact. Todd nt lesions involving the posterior occipital likely related to prominent pacchionian granulation. Nataliia nges of chronic sinusitis. IMPRESSION: 1. Left periorbital soft tissue swelling. 2. No acute hemorrhage or mass effect.
[2022-01-10] MEDS ORDERED: ASPIRIN 81 MG PO STA (11:11)
--- NOTE | 2022-01-10 11:14 | CT ---
EXAMINATION TYPE: CT orbits w con DATE OF EXAM: 01/10/2022 COMPARISON: None HISTORY: Lt eye pain CT DLP: 263.8 mGycm Automated exposure control for dose reduction was used. CONTRAST: Performed with IV Contrast, patient injected with 100 mL of Isovue 300. FINDINGS: There may be mild left periorbital soft tissue swelling. The globes are intact. Optic nerves are symm etric. Nasal septal deviation noted. Osseous structures intact. Changes of chronic sinusitis noted. No enhancing mass. Intracranial atherosclerotic changes are seen. Asymmetric enhancement of the left lacrimal gland. IMPRESSION: 1 NO ACUTE FRACTURE. CORRELATE FOR CHRONIC SINUSITIS. 2. Right asymmetry and enhancement of the left lacrimal gland correlate for point tenderness recommen ded dacryoadenitis. Recommend follow-up MRI orbit.
[2022-01-10] MEDS ORDERED: ARTIFICIAL TEARS-HYPROMELLOSE DROPS 15 ML BTL LEFT EYE PRN (11:59)
[2022-01-10] MEDS ORDERED: NALOXONE 0.4 MG/ML 1 ML VIAL IV PRN (12:10)
[2022-01-10] MEDS ORDERED: ONDANSETRON 4 MG/2 ML VIAL IVP PRN (12:10)
[2022-01-10] MEDS: ERYTHROMYCIN 5 MG/GM OPHTH OINT 3.5 GM TUBE LEFT EYE SCH ×3 (12:37→20:45)
[2022-01-10] MEDS: MORPHINE SULFATE 4 MG/ML SYRINGE IV PRN ×3 (13:49→22:26)
--- NOTE | 2022-01-10 13:57 | P.CRDCN ---
History of Present Illness Consult date: 01/10/22 History of present illness: HISTORY OF PRESENT ILLNESS: This is a 71-year-old male with a past medical history significant for CVA, hypertension, hyperlipidemia, and coronary artery disease with recent stenting. Patient follows in the office with Dr. Wilde. We have been asked to see the patient in consultation for abnormal troponin. Patient examined at the bedside. Patient presented to the hospital with left eye swelling. Patient had a tropo carlos drawn in the emergency room which resulted 0.155. The patient has actually no complaints of chest pain or pressure. He denies having any shortness of breath. It is noted that the patient recently underwent cardiac catheterization on 01/01/2022 with stenting of the proximal RCA and aspiration thrombectomy of the RCA. Patient's troponin peaked at 7.020. * EKG reveals sinus mechanism with no signs of acute ischemia * Chest xray new bilateral multifocal increased opacities. * Laboratory data: WBC 8.9. Hemoglobin 14.5. Platelet count 301. Sodium 137. Potassium 4.5. BUN 13. Creatinine 0.72. Lactic acid 0.8 * Current home cardiac medications include carvedilol 6.25 mg twice a day, losar brower 25 mg daily, Plavix 75 mg daily, atorvastatin 80 mg daily, aspirin 81 mg daily, and eloquent 5 mg twice a day * Most recent echocardiogram obtained December 2021 revealed ejection fraction 40- 45% REVIEW OF SYSTEMS: At the time of my exam: CONSTITUTIONAL: Denies fever or chills. HEENT: Reports swelling to left eye. Denies hemoptysis CARDIOVASCULAR: Denies chest pain. Denies orthopnea. Denies PND. Denies palpitations RESPIRATORY: Denies shortness of breath. GASTROINTESTINAL: Denies abdominal pain. Denies nausea or vomiting. HEMATOLOGIC: Denies bleeding disorders. GENITOURINARY: Denies any blood in urine. SKIN: Denies pruitis. Denies rash. PHYSICAL EXAM: VITAL SIGNS: Reviewed. GENERAL: Well-developed in no acute distress. HEENT: Swelling of left eye noted. Head is normocephalic. Pupils are equal, round. Sclerae anicteric. Mucous membranes of the mouth are moist. Neck supple. No JVD or thyromegaly LUNGS: Respirations even and unlabored. Lungs essentially clear to auscultation bilaterally. HEART: Regular rate and rhythm. S1 and S2 heard. ABDOMEN: Soft. Nondistended. Nontender. EXTREMITIES: Normal range of motion. No clubbing or cyanosis. Peripheral pulses intact. No lower extremity edema NEUROLOGIC: Awake and alert. Oriented x 3. ASSESSMENT: Left eye swelling Abnormal troponin, secondary to recent NSTEMI, trending downward Coronary artery disease with previous PCI to RCA Hypertension Hyperlipidemia CVA PLAN: Patient's troponin is trending down from his NSTEMI last week He has no cardiac complaints Continue home cardiac medications We will sign off. Please reconsult if needed. Nurse practitioner note has been reviewed by physician. Signing provider agrees with the documented findings, assessment, and plan of care. Past Medical History Past Medical History: CVA/TIA, Myocardial Infarction ([place]) Additional Past Medical History / Comment(s): AAA History of Any Multi-Drug Resistant Organisms: None Reported Past Surgical History: Cholecystectomy, Hernia Repair Additional Past Surgical History / Comment(s): LEFT KIDNEY SURGERY A CHILD (PATIENT STATES HE HAD A TUMOR ON URETER). Right partial nephrectomy. Past Anesthesia/Blood Transfusion Reactions: No Reported Reaction Past Psychological History: No Psychological Hx Reported Smoking Status: Never smoker Past Alcohol Use History: None Reported Past Drug Use History: None Reported - Past Family History Mother Family Medical History: No Reported History Medications and Allergies Home Medications Medication Instructions Recorded Confirmed Type Apixaban [Eliquis] 5 mg PO BID 01/01/22 01/10/22 History Atorvastatin [Lipitor] 80 mg PO DAILY 01/01/22 01/10/22 History Tamsulosin [Flomax] 0.4 mg PO BID 01/01/22 01/10/22 History Clopidogrel [Plavix] 75 mg PO DAILY 30 Days #30 tab 01/02/22 01/10/22 Rx Aspirin 81 mg PO DAILY 30 Days #30 tab 01/03/22 01/10/22 Rx Losartan [Cozaar] 25 mg PO DAILY 30 Days #30 tab 01/03/22 01/10/22 Rx Nitroglycerin Sl Tabs [Nitrostat] 0.4 mg SUBLINGUAL Q5M PRN #25 tab 01/03/22 01/10/22 Rx Pantoprazole [Protonix] 40 mg PO DAILY #30 tab 01/03/22 01/10/22 Rx carvediloL [Coreg] 6.25 mg PO BID-W/MEALS 30 Days #60 01/03/22 01/10/22 Rx tab Allergies Allergy/AdvReac Type Severity Reaction Status Date / Time No Known Allergies Allergy Verified 01/10/22 10:12 Physical Exam Vitals: Vital Signs Temp Pulse Resp BP Pulse Ox 01/10/22 12:26 98 F 61 14 146/105 94 L 01/10/22 09:24 96.9 F L 92 14 139/91 91 L 01/10/22 08:17 97.9 F 70 18 150/91 95 Intake and Output 01/09/22 01/10/22 01/10/22 22:59 06:59 14:59 Other: Weight 119.748 kg Results 01/10/22 09:05 01/10/22 09:05 Cardiac Enzymes 01/10/22 01/10/22 Range/Units 09:05 09:05 AST 25 (17-59) U/L Troponin I 0.155 H* (0.000-0.034) ng/mL Coagulation 01/10/22 Range/Units 09:05 PT 10.9 (9.0-12.0) sec APTT 26.8 (22.0-30.0) sec CBC 01/10/22 Range/Units 09:05 WBC 8.9 (3.8-10.6) k/uL RBC 4.73 (4.30-5.90) m/uL Hgb 14.5 (13.0-17.5) gm/dL Hct 44.2 (39.0-53.0) % Plt Count 301 (150-450) k/uL Comprehensive Metabolic Panel 01/10/22 Range/Units 09:05 Sodium 137 (137-145) mmol/L Potassium 4.5 (3.5-5.1) mmol/L Chloride 106 (98-107) mmol/L Carbon Dioxide 28 (22-30) mmol/L BUN 13 (9-20) mg/dL Creatinine 0.72 (0.66-1.25) mg/dL Glucose 113 H (74-99) mg/dL Calcium 9.0 (8.4-10.2) mg/dL AST 25 (17-59) U/L ALT 25 (4-49) U/L Alkaline Phosphatase 101 (38-126) U/L Total Protein 6.9 (6.3-8.2) g/dL Albumin 3.9 (3.5-5.0) g/dL Current Medications Generic Name Dose Route Start Last Admin Trade Name Freq PRN Reason Stop Dose Admin Apixaban 5 mg 01/10/22 21:00 Apixaban 5 Mg Tab PO BID [facility] Protocol Artificial Tears 1 drops 01/10/22 11:59 Artificial Tears-Hypromellose Drops 15 Ml Btl LEFT EYE QID PRN Dry Eye(s) Atorvastatin Calcium 80 mg 01/11/22 09:00 Atorvastatin 80 Mg Tab PO DAILY [facility] Carvedilol 6.25 mg 01/10/22 17:30 Carvedilol 6.25 Mg Tab PO BID-W/MEALS [facility] Clopidogrel Bisulfate 75 mg 01/11/22 09:00 Clopidogrel 75 Mg Tab PO DAILY [facility] Erythromycin 1 applic 01/10/22 12:00 01/10/22 12:37 Erythromycin 5 Mg/Gm Ophth Oint 3.5 Gm Tube LEFT EYE 1 applic Q6HR [facility] Administration Vancomycin HCl 1,750 mg/ 500 mls @ 167 mls/hr 01/10/22 21:00 Sodium Chloride IVPB Q12HR [facility] Ampicillin Sodium/Sulbactam 100 mls @ 200 mls/hr 01/10/22 19:00 Sodium 3 gm/ Sodium Chloride IVPB Q8H [facility] Protocol Losartan Potassium 25 mg 01/11/22 09:00 Losartan 25 Mg Tab PO DAILY [facility] Morphine Sulfate 4 mg 01/10/22 12:10 Morphine Sulfate 4 Mg/Ml Syringe IV Q4HR PRN Severe Pain Naloxone HCl 0.2 mg 01/10/22 12:10 Naloxone 0.4 Mg/Ml 1 Ml Vial IV Q2M PRN Opioid Reversal Ondansetron HCl 4 mg 01/10/22 12:10 Ondansetron 4 Mg/2 Ml Vial IVP Q8HR PRN Nausea And Vomiting Pantoprazole Sodium 40 mg 01/11/22 07:30 Pantoprazole 40 Mg Tablet PO AC-BRKFST [facility] Tamsulosin HCl 0.4 mg 01/10/22 21:00 Tamsulosin 0.4 Mg Cap.Er.24h PO BID [facility] Intake and Output 01/09/22 01/10/22 01/10/22 22:59 06:59 14:59 Other: Weight 119.748 kg Patient Weight 01/11/22 06:59 Weight 119.748 kg 01/10/22 09:05 01/10/22 09:05
[2022-01-10] MEDS: carvediloL 6.25 MG TAB PO SCH (16:40)
[2022-01-10] MEDS: APIXABAN 5 MG TAB PO SCH (20:44)
[2022-01-10] MEDS: TAMSULOSIN 0.4 MG CAP.ER.24H PO SCH (20:44)
[2022-01-10] MEDS: AMPICILLIN-SULBACTAM 3 GM in SODIUM CHLORIDE 0.9% 100 ML IVPB SCH (20:44)
[2022-01-10] MEDS: DORZOLAMIDE-TIMOLOL 2.23%/0.68 10ML BTL LEFT EYE SCH (20:45)
[2022-01-10] MEDS: prednisoLONE ACETATE 1% OPHTH DROPS 5 ML BTL LEFT EYE SCH (20:45)
[2022-01-10] MEDS: VANCOMYCIN 1,750 MG in SODIUM CHLORIDE 0.9% 500 ML 500 ML IVPB SCH (22:27)
[2022-01-11] MEDS: AMPICILLIN-SULBACTAM 3 GM in SODIUM CHLORIDE 0.9% 100 ML IVPB SCH (02:29)
[2022-01-11] MEDS: MORPHINE SULFATE 4 MG/ML SYRINGE IV PRN ×2 (02:30→08:06)
[2022-01-11] MEDS: ERYTHROMYCIN 5 MG/GM OPHTH OINT 3.5 GM TUBE LEFT EYE SCH (05:15)
[2022-01-11] MEDS ORDERED: PANTOPRAZOLE 40 MG TABLET PO SCH (07:30)
[2022-01-11] MEDS: carvediloL 6.25 MG TAB PO SCH (08:06)
[2022-01-11] MEDS: VANCOMYCIN 1,750 MG in SODIUM CHLORIDE 0.9% 500 ML 500 ML IVPB SCH (08:06)
[2022-01-11] MEDS: TAMSULOSIN 0.4 MG CAP.ER.24H PO SCH (08:06)
[2022-01-11] MEDS: APIXABAN 5 MG TAB PO SCH (08:07)
[2022-01-11] MEDS: DORZOLAMIDE-TIMOLOL 2.23%/0.68 10ML BTL LEFT EYE SCH (08:07)
[2022-01-11] MEDS: prednisoLONE ACETATE 1% OPHTH DROPS 5 ML BTL LEFT EYE SCH (08:07)
[2022-01-11] MEDS ORDERED: ASPIRIN 81 MG PO SCH (09:00)
[2022-01-11] MEDS ORDERED: LOSARTAN 25 MG TAB PO SCH (09:00)
[2022-01-11] MEDS ORDERED: ATORVASTATIN 80 MG TAB PO SCH (09:00)
[2022-01-11] MEDS ORDERED: CLOPIDOGREL 75 MG TAB PO SCH (09:00)
--- NOTE | 2022-01-11 09:04 | CONS ---
CONSULTATION OPHTHALMOLOGY CONSULTATION: CHIEF COMPLAINT: Pain and blurriness, left eye. HISTORY OF PRESENT ILLNESS: Mr. Cornejo is a 71-year-old male who complains of sudden-onset blurriness in the left eye that began approximately two months ago. The vision has remained poor constantly since the initial onset. This has not changed or fluctuated. However, over the last several days the patient has noted increased redness and pain in the same eye. The patient also has had several cardiovascular incidents in the last few months; the patient reports a stroke that was treated at an outside hospital followed by a myocardial infarction. The patient attributed his vision loss to the initial stroke. The patient also notes some pain around the left eye and along the left protestant. REVIEW OF SYSTEMS: Positive for headache and occasional chest pain. The patient denies dyspnea, trouble swallowing, jaw claudication, fever, chills, diarrhea, constipation, urinary incontinence, rash. PAST MEDICAL HISTORY: Significant for CVA, TIA, myocardial infarction, abdominal aortic aneurysm, hyperlipidemia. PAST SURGICAL HISTORY: Cholecystectomy, hernia repair. PAST OPHTHALMIC HISTORY: None. SOCIAL HISTORY: The patient reports cigarette smoking. The patient reports no alcohol use. FAMILY HISTORY: Noncontributory. ALLERGIES: NO KNOWN DRUG ALLERGIES. MEDICATIONS: Clopidogrel, aspirin, Cozaar, Nitrostat, Protonix, Coreg, Flomax, Lipitor. OPHTHALMIC EXAMINATION: Visual acuity at near is 20/40 in the right eye and count fingers in the left eye. Intraocular pressure is elevated with tactile measurement. Pupils are equal and reactive. Extraocular movements are full. Confrontation visual field is normal in the right eye and limited in the left eye due to poor vision. The lids are within normal limits in the right eye and slightly erythematous in the left eye. The conjunctiva is injected in the left eye and there is corneal edema along with inflammatory changes in the anterior and posterior chamber. The pupil does not dilate easily in the left eye. The view to the posterior pole is limited due to inflammatory changes. However, the retina is flat. Examination in the right eye is essentially within normal limits. ASSESSMENT AND PLAN: 1. Vascular occlusion, left eye. Based on the patient's limited examination and history, there is likely a central retinal artery occlusion or limitation in perfusion in the left eye. There also appears to be a secondary inflammatory response in the left eye. 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 The etiology does not appear infectious and antibiotics can be stopped. For comfort, erythromycin ointment can be continued. I recommend Cosopt ophthalmic drops b.i.d. in the left eye. I also would recommend starting prednisolone acetate ophthalmic drops in the left eye q.i.d. Along with the current labs that are ordered, I also would like to evaluate for temporal arteritis with ESR and CRP labs to be drawn today. 2. Nuclear sclerotic cataract, bilateral. This can be followed up as an outpatient. Due to the patient's chronic vision loss in the left eye and more recent symptomatic changes, I recommend evaluation as an outpatient to better control his inflammatory changes and potentially treat surgically if necessary. I will follow up on the labs to rule out temporal arteritis and follow up in the office in the next 3 days for further examination and treatment. Thank you for allowing me to participate in this patient's care. Bailey Goins M.D. JYOTI / JEAN: [id number] /
[2022-01-11 09:40] VITALS: BP 138/75; PULSE 51; RESP 16; TEMP 98.1
--- NOTE | 2022-01-11 13:34 | ECHOF ---
Referral Reason:dyspnea MEASUREMENTS -------- HEIGHT: 177.8 cm WEIGHT: 119.7 kg BP: 146/105 IVSd: 1.3 cm (0.6 - 1.1) LVIDd: 5.8 cm (3.9 - 5.3) LVPWd: 1.3 cm (0.6 - 1.1) EDV(Teich): 166 ml IVSs: 1.8 cm LVIDs: 4.3 cm LVPWs: 1.7 cm %IVS Thck: 37 % ESV(Teich): 84 ml EF(Teich): 49 % %FS: 25 % SV(Teich): 81 ml LA Diam: 3.8 cm (2.7 - 3.8) RVIDd: 3.6 cm (< 3.3) LALs A4C: 6.4 cm LAAs A4C: 26.5 cm LAESV A-L A4C: 93 ml LAESV MOD A4C: 89 ml LALs A2C: 6.7 cm LAAs A2C: 23.6 cm LAESV A-L A2C: 71 ml LAESV MOD A2C: 69 ml LAESV(A-L): 83 ml LAESV Index (A-L): 35.48 ml/m Ao Diam: 4.3 cm (2.0 - 3.7) AV Cusp: 2.2 cm (1.5 - 2.6) EPSS: 0.7 cm MV E Lorenzo: 0.76 m/s MV DecT: 313 ms MV Dec Bossier: 2.4 m/s MV A Lorenzo: 0.89 m/s MV E/A Ratio: 0.85 MV PHT: 91 ms AV Vmax: 1.27 m/s AV maxP.42 mmHg MV EF SLOPE: 54.41 mm/s (70 - 150) MV EXCURSION: 15.62 mm (> 18.000) FINDINGS -------- Sinus rhythm. This was a technically adequate study. The left ventricular size is normal. There is mild concentric left ventricular hypertrophy. Overa ll left ventricular systolic function is normal with, an EF between 55 - 60 %. The right ventricle is mildly enlarged. LA is moderately dilated 34-39 ml/m2 The right atrium is normal in size. Interatrial and interventricular septum intact. The aortic valve is trileaflet, and appears structurally normal. No aortic stenosis or regurgitation. The mitral valve is normal. The tricuspid valve appears structurally normal. Unable to estimate RVSP due to inadequate TR jet s pectral doppler profile. The aortic root is dilated measuring 4.3cm. IVC Not well visulized. There is no pericardial effusion. CONCLUSIONS -------- 1. The left ventricular size is normal. 2. There is mild concentric left ventricular hypertrophy. 3. Overall left ventricular systolic function is normal with, an EF between 55 - 60 %. 4. The right ventricle is mildly enlarged. 5. LA is moderately dilated 34-39 ml/m2 6. The aortic root is dilated measuring 4.3cm. 7. There is no pericardial effusion. [employer]: Khadijah Bueno RDCS
[2022-01-11 14:35] LABS: Basophils # (A) 0.09 X 10*3/uL (0.00-0.10); Basophils % (A) 0.9 %; Eosinophils # (A) 0.26 X 10*3/uL (0.04-0.35); Eosinophils % (A) 2.5 %; HCT 42.8 % (39.6-50.0); HGB 13.9 g/dL (13.0-17.0); Immature Grans, Automated 0.4 %; Lymphocytes # (A) 1.12 X 10*3/uL (0.90-5.00); Lymphocytes % (A) 10.8 %; MCHC 32.5 g/dL (32.0-37.0); MCV 92.4 fL (80.0-97.0); Mean Platelet Volume 10.6 fL (9.5-12.2); Monocytes % (A) 6.7 %; NRBC Per 100 WBC 0 /100 WBCS (0.0-0.0); Neutrophils # (A) 8.17 X 10*3/uL (1.80-7.70); Neutrophils % (A) 78.7 %; Platelet Count 314 X 10*3/uL (140-440); RBC 4.63 X 10*6/uL (4.40-5.60); RDW 13.6 % (11.5-14.5); WBC 10.38 X 10*3/uL (4.50-10.00)
[2022-01-11 14:57] LABS: African American GFR (CKD) 101.7 (60.0-200.0); Albumin 4.2 g/dL (3.8-4.9); Albumin/Globulin Ratio 1.76 (1.60-3.17); Anion Gap 11.8 mmol/L (10.00-18.00); BUN/Creat Ratio 13.92 Ratio (12.00-20.00); Calcium 9.4 mg/dL (8.7-10.3); Carbon Dioxide 23.1 mmol/L (20.0-27.5); Globulin 2.4 g/dL (1.6-3.3); Non-African American GFR(CKD) 87.8 (60.0-200.0); Potassium 4.5 mmol/L (3.5-5.5); Total Bilirubin 0.5 mg/dL (0.30-1.20); Total Protein 6.6 g/dL (6.2-8.2)
--- NOTE | 2022-01-13 10:09 | P.HPIM ---
History of Present Illness H&P Date: 01/11/22 History and Physical and Discharge Summary This is a 71-year-old gentleman with past medical history of recent NSTEMI,S/P successful PCI of the RCA , recent CVA 2 with TPA in [place], November 2021, PFO also diagnosed in [place],CVA/TIA, AAA, partial nephrectomy and multiple other medical issues admitted with worsening left periorbital swelling, redness and pain, accompanied by nausea, lightheadedness, intermittent nonspecific chest pain over the last week since his last discharge with occasional mild shortness of breath. Denies injury/trauma to the left eye. Reports chronic residual le ft-sided blurry vision unchanged secondary to prior strokes. Unremarkable labs with the exception a troponin 0.155 for chest trending down from last week's series. CT head/orbits with contrast reported findings concerning for dacryoadenitis of the left eye, no acute fracture. Brain CT reported left periorbital soft tissue swelling without acute hemorrhage or mass effect; lucent lesions involving the posterior occipital likely related to prominent pacchionian granulation. Chest x-ray reported to bilateral multifocal increased opacity disease, no pleural effusion or pneumothorax, correlate clinically to exclude COVID-19 infection. Coronavirus ((PCR) not detected. Afebrile, normal WBC on admission, no cough congestion. Labs pending. Preliminary Blood cultures no growth. Antibiotics initiated, cardiology and ophthalmology consulted.. Review of Systems ROS Statement: Those systems with pertinent positive or pertinent negative responses have been documented in the HPI. ROS Other: All systems not noted in ROS Statement are negative. Past Medical History Past Medical History: CVA/TIA, Myocardial Infarction ([place]) Additional Past Medical History / Comment(s): AAA. 2 CVA 11/2021. MD 12/2021 with stents Last Myocardial Infarction Date:: 12/2021 History of Any Multi-Drug Resistant Organisms: None Reported Past Surgical History: Cholecystectomy, Heart Catheterization With Stent, Hernia Repair Additional Past Surgical History / Comment(s): LEFT KIDNEY SURGERY A CHILD (PATIENT STATES HE HAD A TUMOR ON URETER). Right partial nephrectomy. Past Anesthesia/Blood Transfusion Reactions: No Reported Reaction Date of Last Stent Placement:: 12/2021 Past Psychological History: No Psychological Hx Reported Smoking Status: Never smoker Past Alcohol Use History: None Reported Additional Past Alcohol Use History / Comment(s): 1/2 PPD FOR ABOUT 57 YR. Past Drug Use History: None Reported - Past Family History Mother Family Medical History: No Reported History Medications and Allergies Home Medications Medication Instructions Recorded Confirmed Type Apixaban [Eliquis] 5 mg PO BID 01/01/22 01/10/22 History Atorvastatin [Lipitor] 80 mg PO DAILY 01/01/22 01/10/22 History Tamsulosin [Flomax] 0.4 mg PO BID 01/01/22 01/10/22 History Clopidogrel [Plavix] 75 mg PO DAILY 30 Days #30 tab 01/02/22 01/10/22 Rx Aspirin 81 mg PO DAILY 30 Days #30 tab 01/03/22 01/10/22 Rx Losartan [Cozaar] 25 mg PO DAILY 30 Days #30 tab 01/03/22 01/10/22 Rx Nitroglycerin Sl Tabs [Nitrostat] 0.4 mg SUBLINGUAL Q5M PRN #25 tab 01/03/22 01/10/22 Rx Pantoprazole [Protonix] 40 mg PO DAILY #30 tab 01/03/22 01/10/22 Rx carvediloL [Coreg] 6.25 mg PO BID-W/MEALS 30 Days #60 01/03/22 01/10/22 Rx tab Dorzolamide-Timol 2.23%/0.68% 1 drops LEFT EYE BID #10 ml 01/11/22 Rx [Cosopt] Erythromycin Ophth Oint [Romycin 1 applic LEFT EYE Q6HR #1 packet 01/11/22 Rx Ophth Oint] prednisoLONE ACETATE 1% OPHTH 1 drops LEFT EYE QID #5 ml 01/11/22 Rx [Pred Forte 1%] Allergies Allergy/AdvReac Type Severity Reaction Status Date / Time No Known Allergies Allergy Verified 01/10/22 10:12 Physical Exam PHYSICAL EXAM: VITAL SIGNS: As above GENERAL: Sitting up in bed, no acute distress HEENT: Normocephalic, atraumatic .right eye appears within normal limits .Left eye redness, mild periorbital swelling. mucous membranes moist. NECK: No JVD. No thyroid enlargement. No LNs CARDIOVASCULAR: S1, S2 regular. No murmur RESPIRATION: Breath sounds diminished in the bases. No rhonchi or crackles. No bronchial breathing. ABDOMEN: Soft, nontender, nondistended .No guarding. Bowel sounds heard. LEGS: No edema. no swelling PSYCHIATRY: Alert and oriented -3, mood and affect normal. NERVOUS SYSTEM: Cranial N 2-12 grossly normal.No focal deficits. Strength and sensation grossly intact. Skin: warm and dry ,no rashes Results CBC & Chem 7: 01/11/22 06:55 01/11/22 06:55 Labs: Microbiology - Last 24 Hours (Table) 01/10/22 09:15 Blood Culture - Preliminary Blood No Growth after 48 hours 01/10/22 09:00 Blood Culture - Preliminary Blood No Growth after 48 hours Thrombosis Risk Factor Assmnt - Choose All That Apply Any of the Below Risk Factors Present?: Yes Each Factor Represents 1 point: Obesity (BMI >25) Other Risk Factors: Yes Each Risk Factor Represents 2 Points: Age 61-74 years Other congenital or acquired thrombophilia - If yes, enter type in comment: No Thrombosis Risk Factor Assessment Total Risk Factor Score: 3 Thrombosis Risk Factor Assessment Level: Moderate Risk Assessment and Plan Assessment: Left eye vascular occlusion with inflammation, etiology unclear, per ophthalmology, does not appear to be infectious, in a patient with chronic left eye vision loss, ruling out temporal arteritis, ESR and CRP pending. Bilateral cataracts Elevated troponin, secondary to recent NSTEMI,PCI of the RCA, trending downward as per cardiology CAD Hypertension Hyperlipidemia History of recent CVAs X 2 in [place] every 2021, diagnosed with PFO History of abdominal thoracic aneurysm History of partial nephrectomy Prior nicotine dependence Plan: Continue on current medication regime ,monitoring and symptomatic treatment. Evaluated and cleared by cardiology. Evaluated by ophthalmology, , recommending antibiotics be discontinued ,does not feel it is infectious etiology. Recommended Cosopt, and prednisolone acetate ophthalmic drops in addition to continuing on erythromycin ointment. Ruling out temporal arteritis with ESR and CRP levels drawn, pending with results to be faxed to Dr. Goins and PCP. Cleared by ophthalmology for discharge. Patient has been advised to follow-up with Dr. Goins this Sunday. Patient will be discharged home today in a stable condition with guarded prognosis. Discharge Medication List Apixaban [Eliquis] 5 mg PO BID 01/01/22 [History] Atorvastatin [Lipitor] 80 mg PO DAILY 01/01/22 [History] Tamsulosin [Flomax] 0.4 mg PO BID 01/01/22 [History] Clopidogrel [Plavix] 75 mg PO DAILY 30 Days #30 tab 01/02/22 [Rx] Aspirin 81 mg PO DAILY 30 Days #30 tab 01/03/22 [Rx] Losartan [Cozaar] 25 mg PO DAILY 30 Days #30 tab 01/03/22 [Rx] Nitroglycerin Sl Tabs [Nitrostat] 0.4 mg SUBLINGUAL Q5M PRN #25 tab 01/03/22 [Rx] Pantoprazole [Protonix] 40 mg PO DAILY #30 tab 01/03/22 [Rx] carvediloL [Coreg] 6.25 mg PO BID-W/MEALS 30 Days #60 tab 01/03/22 [Rx] Dorzolamide-Timol 2.23%/0.68% [Cosopt] 1 drops LEFT EYE BID #10 ml 01/11/22 [Rx] Erythromycin Ophth Oint [Romycin Ophth Oint] 1 applic LEFT EYE Q6HR #1 packet 01/11/22 [Rx] prednisoLONE ACETATE 1% OPHTH [Pred Forte 1%] 1 drops LEFT EYE QID #5 ml 01/11/22 [Rx] The impression and plan of care has been dictated as directed. : I performed a history and examination of this patient, discussed the same with the dictator. I agree with the dictator's note ,documented as a scribe. Any additional findings or plans will be noted.
== END 2022-01-11 11:27 | disposition home or self-care (01) ==
LOC: EC 08:12 → 6NMEDSUR 12:10
PROVIDERS: ADMIT Family Medicine; ATTEND Family Medicine
DX: H34.12 Central retinal artery occlusion, left eye (principal); H25.13 Age-related nuclear cataract, bilateral; H01.009 Unspecified blepharitis unspecified eye, unspecified eyelid; R60.9 Edema, unspecified; H54.62 Unqualified visual loss, left eye, normal vision right eye; S05.00XA Injury of conjunctiva and corneal abrasion without foreign body, unspecified eye, initial encounter; Z20.822 Contact with and (suspected) exposure to COVID-19; I11.9 Hypertensive heart disease without heart failure; I25.10 Atherosclerotic heart disease of native coronary artery without angina pectoris; E78.5 Hyperlipidemia, unspecified; I25.2 Old myocardial infarction; F17.210 Nicotine dependence, cigarettes, uncomplicated; J32.9 Chronic sinusitis, unspecified; H40.9 Unspecified glaucoma; E66.9 Obesity, unspecified; Z68.37 Body mass index [BMI] 37.0-37.9, adult; I71.4 Abdominal aortic aneurysm, without rupture; Q21.1 Atrial septal defect; Z86.73 Personal history of transient ischemic attack (TIA), and cerebral infarction without residual deficits; Z79.01 Long term (current) use of anticoagulants; Z79.02 Long term (current) use of antithrombotics/antiplatelets; Z79.82 Long term (current) use of aspirin; Z79.899 Other long term (current) drug therapy; Z90.5 Acquired absence of kidney; Z95.5 Presence of coronary angioplasty implant and graft; Z90.49 Acquired absence of other specified parts of digestive tract
CPT/HCPCS: 96376 ×2; 96366 ×3; 96367; 96365; 96375; 99291; 36415; 93005; 93306; 83880; 80053 ×2; 85652; 83605; 84484; 85025 ×2; 85610; 85730; 86140; 87040; 87635; 71046; 70450; 70481; G0378 ×2; J3370 ×2; J2270 ×2; J1200; J2405; J0295 ×2; Q9967; 99285

== ENCOUNTER → 2022-02-15 | Outpatient (CLI) | payer MEDICARE, OTHER ==
[2022-02-15 17:07] LABS: African American GFR (CKD) >90 (>60 ml/min/1.73 sqM); Blood Urea Nitrogen 16 mg/dL (9-20); Non-African American GFR(CKD) 81 (>60 ml/min/1.73 sqM)
--- NOTE | 2022-02-15 21:50 | CT ---
EXAMINATION TYPE: CT abdomen wo/w con DATE OF EXAM: 02/15/2022 COMPARISON: CT dated 12/31/2021 HISTORY: renal mass once removed in 2020, f/u from that CT DLP: 2553.30 mGycm Automated exposure control for dose reduction was used. TECHNIQUE: Helical acquisition of images was performed from the lung bases through the top of iliac crest to include entire abdomen. CONTRAST: Performed with Oral Contrast and with IV Contrast, patient injected with 100 mL of Isovue 300. FINDINGS: LUNG BASES: Suspected cardiomegaly. LIVER/GB: No definite hepatic focal lesion. Previous cholecystectomy. PANCREAS: No significant abnormality is seen. SPLEEN: No significant abnormality is seen. ADRENALS: Stable 2.5 cm right adrenal adenoma. Stable nodular left adrenal. KIDNEYS: Stable postoperative changes at the upper pole of right kidney. Simple cyst is seen at the u pper pole of the left kidney measuring 4.1 cm. Tiny nonobstructing bilateral renal calculi measuring up to 3 mm. Scattered bilateral renal hypodensities seen in the delayed images, likely representing r enal cysts, appreciated previously. Unremarkable kidneys otherwise. BOWEL: Unremarkable stomach, duodenum and visualized small bowel. Diverticulosis most evident involv ing the sigmoid colon and descending colon with segments of colonic wall thickening, please correlate with colonoscopy results. Normal appendix. LYMPH NODES: No pathologically enlarged abdominal lymph nodes. OSSEOUS STRUCTURES: Degenerative changes of the lower lumbar spine. FREE AIR: No free air is visualized. OTHER: Dilated descending thoracic aorta with infrarenal abdominal aortic aneurysm measuring up to 3. 5 cm. Scattered arterial atherosclerotic calcifications. No free abdominal fluid. IMPRESSION: Stable postoperative changes at the upper pole of right kidney. Small bilateral nonobstructing renal calculi. No evidence of local tumor recurrence or metastatic disease in the abdomen. Incidental findi ngs and recommendations as described above.
== END | disposition home or self-care (01) ==
LOC: RADCTMAIN 16:18
PROVIDERS: ATTEND Urology
DX: N20.0 Calculus of kidney (principal); C64.1 Malignant neoplasm of right kidney, except renal pelvis
CPT/HCPCS: 82565; 84520; 74170; 36415; Q9967

== ENCOUNTER → 2022-02-20 | Day surgery (SDC) | payer MEDICARE, OTHER ==
[2022-02-17 08:23] VITALS: BMI 36.2
[~2022-02-20] MED LIST changes: -DEXAMETHASONE SOD PHOSPHATE 10 MG/ML 1 ML VIAL IV ONE; +IV FLUID CONTINUATION 1,000 ML IV ONE; -LIDOCAINE 1% 20 ML VIAL (10MG/ML) FOR IV START INTRADERMA PRN; -MIDAZOLAM 2 MG/2 ML VIAL IV PRN; +MIDAZOLAM 2 MG/2 ML VIAL IVP ONE; -ONDANSETRON 4 MG/2 ML VIAL IVP ONE; -Pre Op ABX Message 1 EACH MISC MISCELLANE ONE; -SCOPOLAMINE 1.5MG/72HR PATCH TRANSDERM ONE; +fentaNYL (PF) 50 MCG/ML 2 ML AMP IVP ONE; +fentaNYL (PF) 50 MCG/ML 2 ML AMP ONE
[2022-02-20] MEDS: BENZOCAINE SPRAY 1 CAN MUCOUS MEM ONE ×2 (12:09→12:19)
[2022-02-20 13:09] VITALS: PULSE 66; RESP 16
[2022-02-20 13:19] VITALS: BP 102/75
--- NOTE | 2022-02-20 13:22 | P.PCN ---
Date of Procedure: 02/20/22 Operative Findings: TRANSESOPHAGEAL ECHOCARDIOGRAM ENAMEL MACHINE OPERATOR: NAWAF GARCIA MD, RPVI INDICATION: History of recurrent stroke in to rule out patent foramen ovale SEDATION: Conscious sedation COMPLICATION: None LEVEL OF SEDATION Moderate sedation duration of 12 minutes PROCEDURE DESCRIPTION: After obtaining an informed consent, the patient was brought to transesophageal echocardiogram room. Pulse oximetry and heart monitors were attached to the patient. The patient throat was sprayed using lidocaine. The patient was turned into left lateral position. After that a bite guard was placed. After an appropriate conscious sedation was initiated, the transesophageal echocardiogram was advanced through a bite guard into the mid esophagus. A 2-D echocardiogram images, color Doppler images, continuous wave images, pulse-wave images, of various cardiac structure were performed. After that the transesophageal echocardiogram probe was advanced into the stomach and fixed to obtain transgastric view was. The probe was brought into the mid esophagus. Inter-atrial septum was interrogated using 2D images, color Doppler images, and then contrast study. After that transesophageal echocardiogram was withdrawn out and upon withdrawing the descending thoracic aorta all the way up to the arch was evaluated. FINDING: The left ventricular dimension and systolic function appeared to be within normal limits. Ejection fraction appears to be in the range of 50-55%. The right ventricle appeared to be of normal size and function. The left atrium and right atrium are mildly dilated. The left atrial appendage appears to be free from any thrombus. Intra-atrial septum is hyperdynamic with evidence of patent foramen ovale. The aortic valve is sclerotic without stenosis with mild insufficiency with the mitral valve seems to be mildly thickened with mild to moderate MR. Normal tricuspid valve and pulmonic valve CONCLUSION: 1. Patent foramen ovale with evidence of yasyd-af-txal shunt with hyperdynamic septum 2. Normal biventricular dimension and systolic function 3. Aortic sclerosis without stenosis with mild insufficiency 4. Thickened mitral valve leaflets with moderate mitral regurgitation 5. Normal tricuspid valve and pulmonic valve 6. No evidence of pericardial effusion
== END ==
LOC: CATHCVL 10:50
PROVIDERS: ATTEND Internal Medicine Interventional Cardiology
DX: I34.0 Nonrheumatic mitral (valve) insufficiency (principal); Z86.73 Personal history of transient ischemic attack (TIA), and cerebral infarction without residual deficits; Z20.822 Contact with and (suspected) exposure to COVID-19
CPT/HCPCS: 93312; 93325; 87635; J2250; J3010

== ENCOUNTER 2022-03-15 10:46 | Day surgery (SDC) | payer MEDICARE, OTHER ==
[~2022-03-15 10:46] MED LIST changes: +ALPRAZolam 0.25 MG TAB PO PRN; +ALPRAZolam 0.5 MG TAB PO PRN; +ASPIRIN 325 MG TAB PO STA; +ATORVASTATIN 80 MG TAB PO STA; +HEPARIN SODIUM,PORCINE 10,000 UNIT in SODIUM CHLORIDE 0.9% 1,000 ML IRRIGATION PRN; +HEPARIN SODIUM,PORCINE 2,500 UNIT in SODIUM CHLORIDE 0.9% 250 ML IRRIGATION PRN; -IV FLUID CONTINUATION 1,000 ML IV ONE; -MIDAZOLAM 2 MG/2 ML VIAL IVP ONE; +NITROGLYCERIN SL TABS 0.4 MG TAB SUBLINGUAL PRN; -fentaNYL (PF) 50 MCG/ML 2 ML AMP IVP ONE; -fentaNYL (PF) 50 MCG/ML 2 ML AMP ONE
[2022-03-15] MEDS: SODIUM CHLORIDE 0.9% 1,000 ML in EMPTY BAG 1 BAG IV SCH ×2 (11:25→17:13)
[2022-03-15 11:28] LABS: Basophils # (A) 0.1 k/uL (0-0.2); Basophils % (A) 1 %; Eosinophils # (A) 0.3 k/uL (0-0.7); Eosinophils % (A) 3 %; HCT 44.7 % (39.0-53.0); HGB 14.2 gm/dL (13.0-17.5); Lymphocytes # (A) 1.1 k/uL (1.0-4.8); Lymphocytes % (A) 13 %; MCH 29.9 pg (25.0-35.0); MCHC 31.8 g/dL (31.0-37.0); MCV 93.8 fL (80.0-100.0); Mean Platelet Volume 8.3; Monocytes # (A) 0.5 k/uL (0-1.0); Monocytes % (A) 5 %; Neutrophils # (A) 6.9 k/uL (1.3-7.7); Neutrophils % (A) 78 %; Platelet Count 272 k/uL (150-450); RBC 4.76 m/uL (4.30-5.90); RDW 14.2 % (11.5-15.5); WBC 8.9 k/uL (3.8-10.6)
[2022-03-15 11:47] LABS: African American GFR (CKD) >90 (>60 ml/min/1.73 sqM); Anion Gap 7 mmol/L; Blood Urea Nitrogen 15 mg/dL (9-20); Calcium 8.9 mg/dL (8.4-10.2); Carbon Dioxide 25 mmol/L (22-30); Chloride 107 mmol/L (98-107); Glucose 99 mg/dL (74-99); Non-African American GFR(CKD) 87 (>60 ml/min/1.73 sqM); Potassium 4.4 mmol/L (3.5-5.1); Sodium 139 mmol/L (137-145)
[2022-03-15] MEDS ORDERED: MIDAZOLAM 2 MG/2 ML VIAL IVP ONE (12:45)
[2022-03-15] MEDS ORDERED: LIDOCAINE 1% INJ 10MG/ML (30 ML VIAL-PF) SQ ONE (12:47)
[2022-03-15] MEDS ORDERED: HEPARIN SODIUM 1,000 UN/ML (10ML VL) IV ONE (12:55)
[2022-03-15] MEDS ORDERED: IOPAMIDOL-250 100ML BTL IV ONE (13:28)
[2022-03-15] MEDS ORDERED: CLOPIDOGREL 75 MG TAB PO ONE (13:31)
--- NOTE | 2022-03-15 14:35 | P.PCN ---
Date of Procedure: 03/15/22 Operative Findings: PERCUTANEOUS CLOSURE OF PATENT FORAMEN of OVALE (PFO) PERFORMING PHYSICIAN: Teja Wilde MD, [facility] PROCEDURE PERFORMED: 1. Successful percutaneous closure of PFO using 30 mm Amplatzer Occluder with an excellent results and without any residual shunt. 2. Intracardiac echocardiogram imaging. 3. Right atrial angiogram. 4. Ultrasound-guided access of the right common femoral vein 2 INDICATION: This is a 71-year-old gentleman who was diagnosed with recurrent stroke. He underwent a MARGARITA and was found to have PFO. APPROACH: Right common femoral vein 2 COMPLICATION: None. LEVEL OF SEDATION: Moderate with sedation length of 20 minutes. PROCEDURE DESCRIPTION: After obtaining informed consent, the patient was brought to the cardiac lab clerk. The right common femoral vein was cannulated x2 using micropuncture technique under ultrasound guidance, the micropuncture wire passed easily, then I placed two 8-[place] sheath in the right groin. Subsequently I cannulated the left common femoral vein with the same technique and I placed an 8-[place] sheath there as well. At that point, anticoagulation was initiated using heparin and the patient was given a bolus of 5,000 units of heparin IV with continuous ACT monitoring throughout the procedure. After that, the intracardiac echocardiogram probe was advanced through one of the venous sheath all the way to the right atrium where we did interrogate the interatrial septum and identified the patent foramen ovale which was measured about 35 mm. Subsequently, I did cross the defect using 0.035 J-wire with the backup support of multipurpose catheter. The wire was advanced all the way to the left upper pulmonary vein and subsequently the catheter was advanced over the wire to the left upper pulmonary vein. The 0.035 J-wire was pulled out and then I advanced a vero wire. Subsequently, the multipurpose catheter was withdrawn out and the wire was left in the left upper pulmonary vein. After that, I did prep the Amplatzer PFO occluder under saline. The device was loaded into the perforator loader, which was attached to the sheath. Subsequently, I did exchange my 8-[place] sheath into the Shuttle sheath over a 0.035 vero wire. The sheath was advanced all the way under fluoroscopy guidance to the left atrium. Subsequently, the dilator of the sheath was withdrawn out along with the wire. After that, I did load the Amplatzer occluder under continuous saline flush to the sheath. The device was advanced all the way through the sheath were I did where I did deploy initially the left atrial occluder and then I pulled back the sheath and the left atrial occluder all the way to the interatrial septum and then I deployed the right atrial occluder after that. Before I released the device, I did interrogate the septum using ice images on multiple views. After I realized that the device was stable enough and in good position the device was released. Interrogation using ice was also performed after the device was released. By the end I did right atrial angiogram. The procedure was completed without any complication. POSTPROCEDURE MANAGEMENT: 1. Dual anti-platelet therapy. 2. An echo in 24 hours, in 1 week, in 4 weeks, as well as in 6 months.
[2022-03-15] MEDS ORDERED: SODIUM CHLORIDE 0.9% 1,000 ML IV SCH (14:45)
[2022-03-16] MEDS: SODIUM CHLORIDE 0.9% 1,000 ML in EMPTY BAG 1 BAG IV SCH ×2 (00:17→09:34)
[2022-03-16 04:59] VITALS: TEMP 98.6
--- NOTE | 2022-03-16 08:59 | XR ---
EXAMINATION TYPE: XR chest 2V DATE OF EXAM: 03/16/2022 COMPARISON: 01/10/2022 HISTORY: Shortness of breath TECHNIQUE: Frontal and lateral views of the chest are obtained. FINDINGS: Scattered senescent parenchymal changes noted. Hyperinflation compatible with COPD. No evidence for infiltrate. No evidence for atelectasis. Heart size is stable. Mediastinal structures are stable and grossly unremarkable. No evidence for hilar prominence. Degenerative changes dorsal spine. IMPRESSION: 1. No evidence for acute pulmonary disease.
[2022-03-16] MEDS ORDERED: ASPIRIN 325 MG TAB PO SCH (09:00)
[2022-03-16] MEDS ORDERED: CLOPIDOGREL 75 MG TAB PO SCH (09:00)
--- NOTE | 2022-03-16 09:31 | CA ---
Transthoracic Echo Report Name: Boston Cornejo Age: 71 Gender: M : 1950 Exam Date: 03/16/2022 07:15 Exam Location: [facility] Ht (in): 71 Wt (lb): 259 Ordering Physician: Teja Wilde MD ([id number]) Attending/Referring Phys: Able Seaman Khadijah Bueno RDCS Procedure CPT: Indications: Post ASD/PFO Insertion Cardiac Hx: Technical Quality: Fair Contrast 1: Total Dose (mL): Contrast 2: Total Dose (mL): MEASUREMENTS (Male / Female) Normal Values FINDINGS Left Ventricle Left ventricular ejection fraction is estimated at 50-55 %. Right Ventricle Right Atrium Left Atrium No evidence for an atrial septal defect. Mitral Valve Aortic Valve Tricuspid Valve Pulmonic Valve Pericardium Aorta CONCLUSIONS Normal left ventricular dimension and systolic function Stable interatrial septal device was no residual shunt No evidence of pericardial effusion Previewed by: Dr. Teja Wilde MD (Electronically Signed) Final Date: 16 Mar 2022 09:30
[2022-03-16 09:35] VITALS: BP 129/84; PULSE 96; RESP 16
--- NOTE | 2022-03-16 09:36 | P.DS ---
Providers Attending physician: Teja Wilde Primary care physician: [facility] Course: The patient is a pleasant 71-year-old gentleman who underwent yesterday successful percutaneous closure of patent foramen ovale with an excellent angiographic results. The procedure was performed from the right groin. The right groin is soft and nontender and without any bruises. The patient was seen this morning. He is asymptomatic and he is hemodynamically stable. He is going to be discharged home and I'll follow-up with the patient in a week in the office Plan - Discharge Summary Discharge Rx Participant: No New Discharge Prescriptions: No Action Tamsulosin [Flomax] 0.4 mg PO BID Aspirin 81 mg PO DAILY 30 Days #30 tab prednisoLONE ACETATE 1% OPHTH [Pred Forte 1%] 1 drops LEFT EYE QID #5 ml Apixaban [Eliquis] 5 mg PO BID carvediloL [Coreg] 6.25 mg PO BID-W/MEALS 30 Days #60 tab Losartan [Cozaar] 25 mg PO DAILY 30 Days #30 tab Discharge Medication List Apixaban [Eliquis] 5 mg PO BID 01/01/22 [History] Tamsulosin [Flomax] 0.4 mg PO BID 01/01/22 [History] Aspirin 81 mg PO DAILY 30 Days #30 tab 01/03/22 [Rx] Losartan [Cozaar] 25 mg PO DAILY 30 Days #30 tab 01/03/22 [Rx] carvediloL [Coreg] 6.25 mg PO BID-W/MEALS 30 Days #60 tab 01/03/22 [Rx] prednisoLONE ACETATE 1% OPHTH [Pred Forte 1%] 1 drops LEFT EYE QID #5 ml 01/11/22 [Rx]
== END 2022-03-16 11:51 | disposition home or self-care (01) ==
LOC: CATHCVL 10:46 → 3SCARD 13:28 → CATHCVL 03-16 11:51
PROVIDERS: ATTEND Internal Medicine Interventional Cardiology
DX: Q21.1 Atrial septal defect (principal); I25.10 Atherosclerotic heart disease of native coronary artery without angina pectoris; Z95.5 Presence of coronary angioplasty implant and graft; I10 Essential (primary) hypertension; E78.5 Hyperlipidemia, unspecified; Z20.822 Contact with and (suspected) exposure to COVID-19; F17.210 Nicotine dependence, cigarettes, uncomplicated; Z86.73 Personal history of transient ischemic attack (TIA), and cerebral infarction without residual deficits; Z79.01 Long term (current) use of anticoagulants; Z79.02 Long term (current) use of antithrombotics/antiplatelets; Z79.899 Other long term (current) drug therapy
CPT/HCPCS: 93308; 93580; 93662; 80048; 85025; 87635; 71046; C1769 ×5; C1894; C1760; C1817; C1759; J2250; J0690 ×2; J2001; J1644; Q9966

== ENCOUNTER → 2022-04-03 | Outpatient (CLI) | payer MEDICARE, OTHER ==
[2022-04-03 18:15] LABS: African American GFR (CKD) >90 (>60 ml/min/1.73 sqM); Blood Urea Nitrogen 15 mg/dL (9-20); Non-African American GFR(CKD) 86 (>60 ml/min/1.73 sqM)
--- NOTE | 2022-04-04 00:32 | CT ---
EXAMINATION TYPE: CT angio neck, CT soft tissue neck wo/w con DATE OF EXAM: 04/03/2022 HISTORY: right side neck pain (accession [id number]), right side neck pian (accession [id number]) COMPARISON: CT dated 2018 CT DLP: 526.56 (accession [id number]), 2117.12 (accession [id number]) mGycm. Automated Exposure Control for Dose Reduction was Utilized. TECHNIQUE: CTA scan of the neck is performed without and with IV Contrast, patient injected with 100 (combined with ct neck) (accession [id number]), 100 (accession [id number]) mL of Isovue 370, axial image s are obtained, coronal and sagittal reformatted images are reviewed. 3D reconstructed images are cre ated on an independent workstation and reviewed. FINDINGS: Carotid/Vascular Structures: Ascending aortic aneurysm measuring up to 5.3 cm. Recommend correlation with echocardiographic results and cardiothoracic surgical consultation. The pulmonary trunk measures up to 3.2 cm. Scattered arteriosclerotic calcification and tortuosity. Mild stenosis of the origin o f the left internal carotid artery by a partially calcified atheromatous plaque yet patent distally. Otherwise normal caliber and enhancement of the major neck arteries. Other: No gross pharyngeal or laryngeal abnormality. Unremarkable thyroid gland. Symmetrical unremark able parotid and submandibular salivary glands. Patent Major neck veins. No pathologically enlarged l ymph nodes in the neck. COPD changes. Coronary atherosclerotic calcifications. Scattered pulmonary no dules, stable as compared to December 2021 CT scan. Scattered subcentimeter mediastinal and hilar lymph nodes, nonspecific. Degenerative changes of the lower cervical spine. IMPRESSION: Atherosclerotic changes of the major neck arteries without significant stenosis, occlusion, dissectio n or aneurysm. Ascending aortic aneurysm measuring up to 5.3 cm. Recommend correlation with echocardiographic result s and cardiothoracic surgery consultation. No suspicious lesion or lymphadenopathy seen in the neck. Incidental findings as described above.
== END | disposition home or self-care (01) ==
LOC: RADCTMAIN 17:03
PROVIDERS: ATTEND Psychiatry & Neurology Neurology
DX: I71.2 Thoracic aortic aneurysm, without rupture (principal); I25.10 Atherosclerotic heart disease of native coronary artery without angina pectoris; I70.8 Atherosclerosis of other arteries
CPT/HCPCS: 82565; 84520; 70492; 70498; 36415; Q9967

== ENCOUNTER 2022-10-18 22:12 | Emergency (ER) | payer MEDICARE, OTHER ==
[2022-10-18 22:20] VITALS: TEMP 97.1
[2022-10-18] MEDS ORDERED: KETOROLAC 15 MG/ML 1 ML VIAL IVP STA (23:02)
[2022-10-18] MEDS ORDERED: SODIUM CHLORIDE 0.9% 1,000 ML IV ONE (23:02)
[2022-10-18] MEDS ORDERED: ONDANSETRON 4 MG/2 ML VIAL IVP STA (23:03)
[2022-10-18 23:11] LABS: Basophils # (A) 0.1 k/uL (0-0.2); Basophils % (A) 1 %; Eosinophils # (A) 0.3 k/uL (0-0.7); Eosinophils % (A) 3 %; HCT 44.8 % (39.0-53.0); HGB 14.9 gm/dL (13.0-17.5); Lymphocytes # (A) 1.2 k/uL (1.0-4.8); Lymphocytes % (A) 13 %; MCH 30.8 pg (25.0-35.0); MCHC 33.2 g/dL (31.0-37.0); MCV 92.8 fL (80.0-100.0); Mean Platelet Volume 8.7; Monocytes # (A) 0.5 k/uL (0-1.0); Monocytes % (A) 6 %; Neutrophils % (A) 77 %; Platelet Count 234 k/uL (150-450); RBC 4.83 m/uL (4.30-5.90); RDW 13.7 % (11.5-15.5); WBC 9.1 k/uL (3.8-10.6)
[2022-10-18 23:16] LABS: Albumin 4.1 g/dL (3.5-5.0); Calcium 8.9 mg/dL (8.4-10.2); Potassium 4.4 mmol/L (3.5-5.1); Total Bilirubin 0.5 mg/dL (0.2-1.3); Total Protein 6.9 g/dL (6.3-8.2)
--- NOTE | 2022-10-18 23:50 | ED ---
General Adult HPI - General Chief complaint: Nausea/Vomiting/Diarrhea Stated complaint: back pain,vomiting Time Seen by Provider: 10/18/22 22:23 Source: patient Mode of arrival: ambulatory - History of Present Illness Initial comments: This is a 72-year-old male with a past medical history including previous LA, CVA presents emergency department for right-sided flank pain. The patient stated that approximately 3 hours prior to arrival he started to have acute, sharp pain in the right flank without any radiation. The patient did report associated nausea and vomiting with this pain. The patient stated that he has never had any similar pain to this but did state that he had increased urinary frequency. The patient denied any other acute pain at this time. The patient d enied trauma to the area. The patient was otherwise resting in bed comfortably. The patient denied any fevers and chills. - Related Data Home Medications Medication Instructions Recorded Confirmed Apixaban [Eliquis] 5 mg PO BID 01/01/22 03/15/22 Tamsulosin [Flomax] 0.4 mg PO BID 01/01/22 03/15/22 Previous Rx's Medication Instructions Recorded Aspirin 81 mg PO DAILY 30 Days #30 tab 01/03/22 Losartan [Cozaar] 25 mg PO DAILY 30 Days #30 tab 01/03/22 carvediloL [Coreg] 6.25 mg PO BID-W/MEALS 30 Days #60 01/03/22 tab prednisoLONE ACETATE 1% OPHTH 1 drops LEFT EYE QID #5 ml 01/11/22 [Pred Forte 1%] HYDROcodone/APAP 5-325MG [[place] 1 tab PO Q6HR PRN 3 Days #12 tab 10/19/22 5-325] Ketorolac [Toradol] 10 mg PO Q6HR #40 tab 10/19/22 Ondansetron Odt [Zofran Odt] 4 mg PO Q8HR PRN #20 tab 10/19/22 Tamsulosin [Flomax] 0.4 mg PO DAILY #30 cap 10/19/22 Allergies Allergy/AdvReac Type Severity Reaction Status Date / Time No Known Allergies Allergy Verified 10/18/22 22:20 Review of Systems ROS Statement: Those systems with pertinent positive or pertinent negative responses have been documented in the HPI. ROS Other: All systems not noted in ROS Statement are negative. Past Medical History Past Medical History: Coronary Artery Disease (CAD), Cancer, CVA/TIA, Myocardial Infarction (LA) Additional Past Medical History / Comment(s): AAA. 2 CVA 11/2021. LA 12/2021 with stents, hx. 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 Last Myocardial Infarction Date:: 12/2021 History of Any Multi-Drug Resistant Organisms: None Reported Past Surgical History: Cholecystectomy, Heart Catheterization With Stent, Hernia Repair Additional Past Surgical History / Comment(s): LEFT KIDNEY SURGERY A CHILD (PATIENT STATES HE HAD A TUMOR ON URETER). Cyst removed from kidney. Past Anesthesia/Blood Transfusion Reactions: No Reported Reaction Date of Last Stent Placement:: 12/2021 Past Psychological History: No Psychological Hx Reported Smoking Status: Current every day smoker Past Alcohol Use History: None Reported Past Drug Use History: None Reported - Past Family History Mother Family Medical History: No Reported History General Exam Limitations: no limitations General appearance: alert, in no apparent distress Head exam: Present: atraumatic, normocephalic Eye exam: Present: normal appearance, PERRL Pupils: Present: normal accommodation ENT exam: Present: normal exam, normal oropharynx, mucous membranes moist Neck exam: Present: normal inspection, full ROM Respiratory exam: Present: normal lung sounds bilaterally Cardiovascular Exam: Present: regular rate, normal rhythm, normal heart sounds GI/Abdominal exam: Present: soft, normal bowel sounds Extremities exam: Present: normal inspection, full ROM Back exam: Present: normal inspection, full ROM, CVA tenderness (R) Neurological exam: Present: alert, oriented X3, CN II-XII intact Psychiatric exam: Present: normal affect, normal mood Skin exam: Present: warm, dry Course Vital Signs 10/18/22 10/19/22 10/19/22 22:17 00:39 05:14 Temperature 97.1 F L Pulse Rate 83 73 78 Respiratory 22 16 16 Rate Blood Pressure 158/83 120/76 98/65 O2 Sat by Pulse 92 L 97 97 Oximetry EKG Findings - EKG Comments: EKG Findings:: EKG was obtained and was interpreted by myself. EKG showed a rate of 75, IL interval 173, QRS duration of 109 and QTC of 419. This EKG showed normal sinus rhythm with no ST segment elevation or depression noted. Medical Decision Making - Medical Decision Making Was pt. sent in by a medical professional or institution? @No Did you speak to anyone other than the patient for history? @Patient's daughter Did you review nursing and triage notes? @Nursing triage note was reviewed Were old charts reviewed? @No Differential Diagnosis? @Musculoskeletal strain, kidney stone, pyelonephritis EKG interpreted by me (3pts min.)? @ [none] X-rays interpreted by me (1pt min.)? @ [none] CT interpreted by me (1pt min.)? @Computed tomography scan was obtained and was interpreted by myself. Computed tomography scan showed small tiny bilateral nephrolithiasis that was redemonstrated. There was no hydronephrosis currently. There is a 3 mm calculus that either just passed into the urinary bladder are less likely at the left UVJ not causing significant left-sided hydronephrosis. U/S interpreted by me (1pt. min.)? @ [none] What testing was considered but not performed? (CT, X-rays, U/S, labs)? Why? @Ultrasound was considered however computed tomography scan was more sensitive and therefore ultrasound was not needed at this time What meds were considered but not given? Why? @ [none] Did you discuss the management of the patient with other professionals? @No Did you reconcile home meds? @ [none] Was smoking cessation discussed for >3mins.? @ [none] Was critical care preformed (if so, how long)? @ [none] Were there social determinants of health that impacted care today? How? (Homelessness, low income, unemployed, alcoholism, drug addiction, transportation, low edu. Level, literacy, decrease access to med. care, senior care, rehab)? @None Was there de-escalation of care discussed even if they declined? (Discuss DNR or withdrawal of care, Hospice)? @No What co-morbidities impacted this encounter? (DM, HTN, Smoking, COPD, CAD, Cancer, CVA, Hep., AIDS, mental health diagnosis, sleep apnea, morbid obesity)? @None Was patient admitted / discharged? @The patient seen and evaluated emergency department. Physical exam, the patient was resting in bed initially with significant right-sided flank pain. The patient was given Toradol on arrival and had complete resolution of his pain. Urinalysis did take several hours to obtain as the patient could not urinate and therefore soon as the urinalysis was obtained, did show signs of a kidney stone. Computed tomography scan was obtained to confirm this however there was no right-sided kidney stone noted. The patient likely passed the right-sided kidney stone. The patient was given a prescription for Flomax, [place] as well as Toradol and told to continue to strain his urine. The patient was advised to follow-up with the urologist if he had continued, severe pain. The patient was also advised report back to the emergency department if his pain became too severe to manage at home. The patient was agreeable to this and was discharged home in stable condition with his daughter. Undiagnosed new problem with uncertain prognosis? @ [none] Drug Therapy requiring intensive monitoring for toxicity (Heparin, Nitro, Insulin, Cardizem)? @ [none] Were any procedures done? @ [none] Diagnosis/symptom? @Kidney stones Acute, or Chronic, or Acute on Chronic? @Acute Uncomplicated (without systemic symptoms) or Complicated (systemic symptoms)? @Uncomplicated Side effects of treatment? @ [none] Exacerbation, Progression, or Severe Exacerbation] @ [no] Poses a threat to life or bodily function? @ [no] - Lab Data Result diagrams: 10/18/22 22:39 10/18/22 22:39 Lab Results 10/18/22 10/18/22 10/18/22 Range/Units 22:39 22:39 22:39 WBC 9.1 (3.8-10.6) k/uL RBC 4.83 (4.30-5.90) m/uL Hgb 14.9 (13.0-17.5) gm/dL Hct 44.8 (39.0-53.0) % MCV 92.8 (80.0-100.0) fL MCH 30.8 (25.0-35.0) pg MCHC 33.2 (31.0-37.0) g/dL RDW 13.7 (11.5-15.5) % Plt Count 234 (150-450) k/uL MPV 8.7 Neutrophils % 77 % Lymphocytes % 13 % Monocytes % 6 % Eosinophils % 3 % Basophils % 1 % Neutrophils # 7.0 (1.3-7.7) k/uL Lymphocytes # 1.2 (1.0-4.8) k/uL Monocytes # 0.5 (0-1.0) k/uL Eosinophils # 0.3 (0-0.7) k/uL Basophils # 0.1 (0-0.2) k/uL Sodium 140 (137-145) mmol/L Potassium 4.4 (3.5-5.1) mmol/L Chloride 109 H (98-107) mmol/L Carbon Dioxide 24 (22-30) mmol/L Anion Gap 7 mmol/L BUN 19 (9-20) mg/dL Creatinine 1.16 (0.66-1.25) mg/dL Est GFR (CKD-EPI)AfAm 73 (>60 ml/min/1.73 sqM) Est GFR (CKD-EPI)NonAf 64 (>60 ml/min/1.73 sqM) Glucose 104 H (74-99) mg/dL Calcium 8.9 (8.4-10.2) mg/dL Total Bilirubin 0.5 (0.2-1.3) mg/dL AST 31 (17-59) U/L ALT 25 (4-49) U/L Alkaline Phosphatase 91 (38-126) U/L Troponin I <0.012 (0.000-0.034) ng/mL NT-Pro-B Natriuret Pep pg/mL Total Protein 6.9 (6.3-8.2) g/dL Albumin 4.1 (3.5-5.0) g/dL Lipase 211 (23-300) U/L Urine Color Urine Appearance (Clear) Urine pH (5.0-8.0) Ur Specific [place] (1.001-1.035) Urine Protein (Negative) Urine Glucose (UA) (Negative) Urine Ketones (Negative) Urine Blood (Negative) Urine Nitrite (Negative) Urine Bilirubin (Negative) Urine Urobilinogen (<2.0) mg/dL Ur Leukocyte Esterase (Negative) Urine RBC (0-5) /hpf Urine WBC (0-5) /hpf Urine Mucus (None) /hpf 10/18/22 10/19/22 Range/Units 22:39 02:26 WBC (3.8-10.6) k/uL RBC (4.30-5.90) m/uL Hgb (13.0-17.5) gm/dL Hct (39.0-53.0) % MCV (80.0-100.0) fL MCH (25.0-35.0) pg MCHC (31.0-37.0) g/dL RDW (11.5-15.5) % Plt Count (150-450) k/uL MPV Neutrophils % % Lymphocytes % % Monocytes % % Eosinophils % % Basophils % % Neutrophils # (1.3-7.7) k/uL Lymphocytes # (1.0-4.8) k/uL Monocytes # (0-1.0) k/uL Eosinophils # (0-0.7) k/uL Basophils # (0-0.2) k/uL Sodium (137-145) mmol/L Potassium (3.5-5.1) mmol/L Chloride (98-107) mmol/L Carbon Dioxide (22-30) mmol/L Anion Gap mmol/L BUN (9-20) mg/dL Creatinine (0.66-1.25) mg/dL Est GFR (CKD-EPI)AfAm (>60 ml/min/1.73 sqM) Est GFR (CKD-EPI)NonAf (>60 ml/min/1.73 sqM) Glucose (74-99) mg/dL Calcium (8.4-10.2) mg/dL Total Bilirubin (0.2-1.3) mg/dL AST (17-59) U/L ALT (4-49) U/L Alkaline Phosphatase (38-126) U/L Troponin I (0.000-0.034) ng/mL NT-Pro-B Natriuret Pep 112 pg/mL Total Protein (6.3-8.2) g/dL Albumin (3.5-5.0) g/dL Lipase (23-300) U/L Urine Color Yellow Urine Appearance Clear (Clear) Urine pH 5.5 (5.0-8.0) Ur Specific [place] 1.021 (1.001-1.035) Urine Protein Trace H (Negative) Urine Glucose (UA) Negative (Negative) Urine Ketones Negative (Negative) Urine Blood Large H (Negative) Urine Nitrite Negative (Negative) Urine Bilirubin Negative (Negative) Urine Urobilinogen <2.0 (<2.0) mg/dL Ur Leukocyte Esterase Trace H (Negative) Urine RBC >182 H (0-5) /hpf Urine WBC 8 H (0-5) /hpf Urine Mucus Few H (None) /hpf Disposition Clinical Impression: Kidney stone Disposition: HOME SELF-CARE Condition: Stable Instructions (If sedation given, give patient instructions): Kidney Stones (ED) Prescriptions: Tamsulosin [Flomax] 0.4 mg PO DAILY #30 cap HYDROcodone/APAP 5-325MG [[place] 5-325] 1 tab PO Q6HR PRN 3 Days #12 tab PRN Reason: Pain Ketorolac [Toradol] 10 mg PO Q6HR #40 tab Ondansetron Odt [Zofran Odt] 4 mg PO Q8HR PRN #20 tab PRN Reason: Nausea Is patient prescribed a controlled substance at d/c from ED?: Yes When asked, does pt state using other controlled substances?: No If prescribed controlled substance>3 days was MAPS reviewed?: Prescribed <3 Days If opioid is for acute pain is fill amount 7 days or less?: Yes If Rx opioid, was Start Talking consent form obtained?: Yes Referrals: Hermes Cortez DO [Primary Care Provider] - 1-2 days Hudson Soto MD [STAFF PHYSICIAN] - 1-2 days Time of Disposition: 04:45
[2022-10-19 00:40] VITALS: RESP 16
[2022-10-19 02:36] LABS: Appearance,Urine Clear (Clear); Bilirubin,Urine Negative (Negative); Blood,Urine Large (Negative); Color,Urine Yellow; Glucose,Urine (UA) Negative (Negative); Ketones,Urine Negative (Negative); Leukocyte Esterase,Urine Trace (Negative); Mucus,Urine Few /hpf; Nitrite,Urine Negative (Negative); PH, Urine 5.5 (5.0-8.0); Protein,Urine Trace (Negative); RBC,Urine >182 /hpf (0-5); Specific Gravity,Urine 1.021 (1.001-1.035); Urobilinogen,Urine <2.0 mg/dL (<2.0); WBC,Urine 8 /hpf (0-5)
--- NOTE | 2022-10-19 04:32 | CT ---
EXAMINATION TYPE: CT abdomen pelvis wo con DATE OF EXAM: 10/19/2022 HISTORY: Kidney stone. Right-sided flank pain. CT DLP: 1221 mGycm. Automated Exposure Control for Dose Reduction was Utilized. TECHNIQUE: CT scan of the abdomen and pelvis is performed without oral or IV contrast. COMPARISON: CT abdomen and pelvis February 15, 2022 FINDINGS: Within the limitations of a non-contrast study, the following observations are made. LUNG BASES: Coronary artery calcification in the RCA distribution is redemonstrated. There is surgica l change at level of the atrial septum. There is cardiomegaly redemonstrated. LIVER/GB: Cholecystectomy clips are redemonstrated. PANCREAS: No significant abnormality is seen. SPLEEN: No significant abnormality is seen. ADRENALS: Stable 2.0 cm small low dense right adrenal mass consistent with benign lipid rich adenoma. KIDNEYS: There are approximately 6 small left renal calculi including grouped calculi midpole of the left kidney coronal images 80 and 89. No left-sided hydronephrosis . Linear density right kidney laterally upper to mid pole level coronal image 82 is redemonstrated. Pr obable 2 adjacent tiny right renal calculi centrally upper to mid pole level. There is motion artifac t degradation. No right-sided hydronephrosis. There is 3 mm calculus axial image 125 suspected in the left dependent aspect of the bladder versus a djacent UVJ. Bladder poorly distended. Mild wall thickening and wall irregularity is present. BOWEL: Diverticula in the sigmoid colon are present with moderate wall thickening. Underlying strictu re may be present. Similar appearance to CT in December. No CT evidence for acute diverticulitis. Normal -appearing appendix. No suspicious bowel dilatation. GENITAL ORGANS: Markedly Enlarged prostate consistent with BPH is redemonstrated. LYMPH NODES: No greater than 1cm abdominal or pelvic lymph nodes are appreciated. OSSEOUS STRUCTURES: Moderate disc space narrowing with vacuum disc phenomenon at L4-L5 and L5-S1 leve ls. Moderate axial joint space loss in both hips. OTHER: Mild to moderate calcified plaque of the aorta extends into branch vessels. Ectatic aorta agai n seen. No greater than 3.0 cm aneurysm. IMPRESSION: Small to tiny bilateral nephrolithiasis redemonstrated. No hydronephrosis currently. Ther e is 3 mm calculus either just passed into urinary bladder or less likely at left UVJ not causing sig nificant left-sided hydronephrosis.
[2022-10-19 05:14] VITALS: BP 98/65; PULSE 78
== END 2022-10-19 05:19 | disposition home or self-care (01) ==
LOC: EC 22:12
DX: N20.0 Calculus of kidney (principal); I25.10 Atherosclerotic heart disease of native coronary artery without angina pectoris; Z86.73 Personal history of transient ischemic attack (TIA), and cerebral infarction without residual deficits; I25.2 Old myocardial infarction; F17.200 Nicotine dependence, unspecified, uncomplicated; Z79.01 Long term (current) use of anticoagulants
CPT/HCPCS: 36415; 93005; 83880; 80053; 83690; 84484; 85025; 81001; 74176; 99284; 96374; 96375; 96361; J2405; J1885

== ENCOUNTER → 2023-11-05 | Outpatient (CLI) | payer MEDICARE, OTHER ==
--- NOTE | 2023-11-07 20:39 | XR ---
EXAMINATION TYPE: XR KUB DATE OF EXAM: 11/05/2023 11:05 AM CLINICAL INDICATION:Male, 73 years old with history of N20.0 calculus; PHH COMPARISON: None. TECHNIQUE: Supine radiographic view/s of the abdomen/pelvis obtained. FINDINGS: The bowel gas pattern is nonspecific, likely nonobstructive without dilated loops of small or large b owel. Fecal material and gas are demonstrated throughout the colon and rectum. No gross evidence of o rganomegaly. No evidence of pneumoperitoneum in the limitations of supine technique. Vascular calcifi cations are present. No clear evidence of sizable urinary tract calculi. Osseous structures appear g rossly intact. Mild/moderate degenerative changes of the spine and mild bilateral hip arthropathy. IMPRESSION: No clear evidence of sizable urinary tract calculi.
== END | disposition home or self-care (01) ==
LOC: RADXRMAIN 10:52
PROVIDERS: ATTEND Urology
DX: N20.0 Calculus of kidney (principal)
CPT/HCPCS: 74018

== ENCOUNTER → 2023-12-10 | Outpatient (CLI) | payer MEDICARE, OTHER ==
[2023-12-10 14:55] LABS: African American GFR (CKD) >90 (>60 ml/min/1.73 sqM); Blood Urea Nitrogen 15 mg/dL (9-20); Non-African American GFR(CKD) 88 (>60 ml/min/1.73 sqM)
--- NOTE | 2023-12-11 08:56 | CT ---
CTA CHEST EXAMINATION TYPE: CT angio chest DATE OF EXAM: 12/10/2023 INDICATION: F/U Thoracic abdominal aneurysm CT DLP: 1300.5 mGycm, Automated exposure control for dose reduction was used. CONTRAST: Patient injected with 100 mL of Isovue 370. COMPARISON: 12/31/2021 TECHNIQUE: CT of the chest is performed on a spiral scan at 2 mm thick sections. Study is performed with intravenous contrast timed for evaluation for thoracic aneurysm. This will limit additional por tions of the evaluation. 3-D MIP images reconstructed by the technologist are reviewed on the [facility] er in the coronal and sagittal planes. FINDINGS: No persistent filling defects are evident to suggest an acute pulmonary embolism. No mediastinal or hilar adenopathy enlarged by CT criteria is evident. Multiple scattered small lymp h nodes are present The main pulmonary artery diameter at the bifurcation is 3.1 cm. Mild coronary artery calcification is present. Thoracic aorta at the diaphragm is 3.6 cm. Thoracic aorta at the aortic arch transverse dimension is 3.2 cm. Descending thoracic aorta at the main pulmonary arteries 5.2 cm. Thoracic aorta at the aortic root is 4.1 cm Lung windows are clear. Paraseptal emphysematous changes are evident in the lung apices. Limited CT sections were through the upper abdomen. Upper abdomen appears unremarkable. IMPRESSION: 1. Thoracic aortic aneurysm. Mid ascending thoracic aorta measures 5.0 cm. 2. There is mild fusiform prominence of the distal descending thoracic aorta at the diaphragm. No obv ious aneurysm within the proximal abdomen is identified. If there is clinical concern for abdominal a ortic aneurysm, CT abdomen would be recommended.
== END | disposition home or self-care (01) ==
LOC: RADCTMAIN 14:20
PROVIDERS: ATTEND Internal Medicine Interventional Cardiology
DX: I71.40 Abdominal aortic aneurysm, without rupture, unspecified (principal); I71.20 Thoracic aortic aneurysm, without rupture, unspecified
CPT/HCPCS: 82565; 84520; 71275; 36415; Q9967

== ENCOUNTER → 2024-06-13 | Outpatient (CLI) | payer MEDICARE, OTHER ==
--- NOTE | 2024-07-09 08:46 | CT ---
Site ID synapse default Patient [place] Alexandra ID [id number] Age/Gender: 73Y, M Order # N/A Procedure CT abdomen w con Date 06/12/2024 10:22:00 AM EXAMINATION TYPE: CT abdomen w con CT DLP: 1257 mGycm, Automated exposure control for dose reduction was used. DATE OF EXAM: 06/18/2024 4:07 PM COMPARISON: CT abdomen pelvis 10/09/2022, CT abdomen 02/15/2022, CTA chest 12/10/2023 CLINICAL INDICATION: Male, 73 year old with history of renal cancer, follow-up. TECHNIQUE: Multiphase CT of the abdomen following the administration of 100 cc of Isovue 300 IV cont rast material and oral contrast. Coronal and sagittal reformats were performed. FINDINGS: LOWER CHEST: Minimal right lower lobe dependent subsegmental atelectasis. Atrial septal occlusion dev ice. Small aortic valvular calcifications. Median sternotomy wires. ABDOMEN LIVER: Unremarkable GALLBLADDER AND BILE DUCTS: The gallbladder is surgically absent. No biliary duct dilatation. PANCREAS: Unremarkable. SPLEEN: Unremarkable. ADRENAL GLANDS: Left adrenal gland is unremarkable. Stable right adrenal gland 2.0 cm lipid rich laura tere. KIDNEYS AND URETERS: No evidence of hydronephrosis. Bilateral punctate nonobstructive renal calculi. The kidneys enhance symmetrically. Left renal upper pole 4.3 cm cyst. No new enhancing renal mass. Co ntrast is demonstrated within both collecting systems on the delayed phase. Additional stable bilater al subcentimeter hypodense foci which are favored to represent cysts. Stable postoperative changes of the right upper kidney. STOMACH AND BOWEL: Small hiatal hernia, duodenum is unremarkable. No focal bowel wall thickening or s urrounding inflammatory changes. The visualized appendix is within normal limits. Pancolonic divertic ulosis visualized. No evidence of bowel obstruction. PERITONEUM: No evidence of pneumoperitoneum or free fluid. VASCULATURE: Increased size of fusiform infrarenal abdominal aortic aneurysm measuring up to 3.7 cm, previously 3.3 cm. Moderate at this chronic calcification of the aorta and its branches. 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 Peripheral mural plaquing identifie d within the visualized descending thoracic aorta. The descending thoracic aorta measures up to 4.3 c m. MUSCULOSKELETAL: No acute osseous abnormalities. Moderate multilevel degenerative disc disease LYMPH NODES: No gross evidence for lymphadenopathy. SOFT TISSUE/ABDOMINAL WALL: Small right of midline epigastric ventral wall fat-containing hernia. IMPRESSION: 1. Stable postoperative changes of the upper pole of the right kidney. No evidence for local tumor re currence or metastatic disease within the abdomen. 2. Nonobstructive bilateral renal calculi. 3. Increased size of abdominal aortic aneurysm now measuring up to 3.7 cm, previously measured 3.[address] 10/19/2022. 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 Aneurysm dilatation of the descending thoracic aorta is redemonstrated and stable from most recent exam.
== END | disposition home or self-care (01) ==
LOC: RADCTMAIN 11:30
PROVIDERS: ATTEND Urology
DX: N20.0 Calculus of kidney (principal); I71.40 Abdominal aortic aneurysm, without rupture, unspecified; I71.23 Aneurysm of the descending thoracic aorta, without rupture; Z85.528 Personal history of other malignant neoplasm of kidney
CPT/HCPCS: 74160; 36415; Q9967

== ENCOUNTER → 2024-11-05 | Outpatient (CLI) | payer MEDICARE, OTHER ==
[2024-11-05 16:05] LABS: Chol/HDL Ratio 3.94 Ratio; LDL Cholesterol,Calculated 72.9 mg/dL (0.0-131.0)
== END | disposition home or self-care (01) ==
LOC: LABWHC1 10:55
PROVIDERS: ATTEND Internal Medicine Cardiovascular Disease
DX: I25.10 Atherosclerotic heart disease of native coronary artery without angina pectoris (principal)
CPT/HCPCS: 36415; 80061

== ENCOUNTER → 2025-03-03 | Outpatient (CLI) | payer MEDICARE, OTHER | END | disposition home or self-care (01) | LOC: LABWHC1 11:49 | PROVIDERS: ATTEND Urology | DX: R97.20 Elevated prostate specific antigen [PSA] (principal) | CPT/HCPCS: 36415; 84153 ==

== ENCOUNTER → 2025-03-10 | Outpatient (CLI) | payer MEDICARE ==
[2025-03-10 15:48] LABS: Chol/HDL Ratio 3.56 Ratio; VLDL Calculation 13.48 mg/dL (5.00-40.00)
[2025-03-10 15:49] LABS: ALT 19 U/L (10-49); AST 22 U/L (14-35); LDL Cholesterol,Calculated 73.5 mg/dL (0.0-131.0)
== END | disposition home or self-care (01) ==
LOC: LABWHC1 09:18
PROVIDERS: ATTEND Internal Medicine Interventional Cardiology
DX: E78.2 Mixed hyperlipidemia (principal)
CPT/HCPCS: 36415; 80061; 84450; 84460

== ENCOUNTER → 2025-03-18 | Outpatient (CLI) | payer MEDICARE, OTHER ==
[2025-03-18 11:13] LABS: African American GFR (CKD) 77 (>60 ml/min/1.73 sqM); Blood Urea Nitrogen 22 mg/dL (9-20); Non-African American GFR(CKD) 66 (>60 ml/min/1.73 sqM)
--- NOTE | 2025-03-18 13:47 | CT ---
EXAMINATION TYPE: CT angio chest DATE OF EXAM: 03/18/2025 COMPARISON: 12/10/2023 CLINICAL INDICATION: Male, 74 years old with history of I171.20 thoracic aneurysm; PHH, Thoracic aort ic aneurysm w/o rupture. TECHNIQUE: CTA scan of the thorax is performed with IV Contrast, patient injected with 100 ml mL of Isovue 370, pulmonary embolism protocol. MIP images are created and reviewed. CT DLP: 1535.[address] CTDI: mGy Automated exposure control for dose reduction was used. FINDINGS: There are moderate emphysematous changes. There is a stable 6 mm groundglass nodule in the left upper lobe. There is a stable 7.6 mm juxtapleur al fissural nodule on the right. There is no new or suspicious lung mass or nodule. There is no airspace consolidation There is no pleural effusion or pneumothorax. There are postsurgical changes of ascending thoracic aorta aneurysm repair. There is no recurrent asc ending thoracic aortic aneurysm. The thoracic arch and descending thoracic aorta is mildly ectatic thoracic aorta is 3.3 cm in diamete r. There is no mediastinal, hilar or axillary lymphadenopathy. Limited scanning through the upper abdomen reveals no gross abnormality. There are no focal osseous lesions. IMPRESSION: 1. Repair of the ascending thoracic aortic aneurysm. No recurrent ascending thoracic aortic aneurysm. The ascending thoracic aorta measures 3 cm. 2. Mild ectasia of the thoracic arch and descending thoracic aorta. The descending thoracic aorta is 3.3 cm. 3. Moderate emphysematous changes. 4. No acute cardiopulmonary disease 5. Stable Bilateral pulmonary nodules. No new or suspicious pulmonary mass or nodule. [facility], , 03/18/2025 1:44 PM
== END | disposition home or self-care (01) ==
LOC: RADCTMAIN 10:16
PROVIDERS: ATTEND Internal Medicine Interventional Cardiology
DX: I77.810 Thoracic aortic ectasia (principal); J43.9 Emphysema, unspecified; R91.8 Other nonspecific abnormal finding of lung field
CPT/HCPCS: 82565; 84520; 71275; 36415; Q9967